=== PATIENT | male | born 1965 | race Caucasian/White ===

== ENCOUNTER 2024-04-19 16:04 | Emergency (ER) | payer MEDICAID, SELFPAY ==
[2024-04-19 16:10] VITALS: BP 139/86; PULSE 62; TEMP 36.7; O2SAT 97; BMI 19.4
--- NOTE | 2024-04-19 16:19 | XR_ITS ---
The [address] [address] Patient Name: KRISTEN LAU MRN: [id number] date: 1965 Sex: M Assigned Patient Location: ER Current Patient Location: ED.MAIN Accession/Order Number: [id number] Exam Date: 04/19/2024 16:30 Report Date: 04/19/2024 17:17 At the request of: ALONSO HARTLEY Procedure: XR shoulder RT min 2V EXAM: XR shoulder RT min 2V HISTORY: right shoulder pain/ mass? COMPARISON: None. TECHNIQUE: 3 views of the right shoulder. FINDINGS: Bones: No acute fracture or dislocation. There is significant cortical erosion of medial proximal humeral shaft and neck mottling of proximal diaphysis, suspicious for neoplasm. CT of the shoulder with contrast is recommended for better evaluation. XR/XR shoulder RT min 2V IMPRESSION: significant cortical erosion of medial proximal humeral shaft and neck mottling of proximal diaphysis, suspicious for neoplasm. CT of the shoulder with contrast is recommended for better evaluation. Electronically authenticated by: IRON TEMPLETON Date: 04/19/2024 17:17
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
[2024-04-19 17:54] LABS: Basophils Absolute Auto 0.1 10^3/uL (0.0-0.1); Basophils Percent Auto 0.7 % (0.2-2.0); Eosinophils Absolute Auto 0.7 10^3/uL (0.0-0.7); Eosinophils Percent Auto 5.5 % (0.9-7.0); Hematocrit 43.4 % (42.0-54.0); Hemoglobin 14.1 g/dL (14.0-18.0); Immature Granulocytes Abs Auto 0.03 10^3/uL (0.00-0.03); Immature Granulocytes Pct Auto 0.2 % (0.0-0.5); Lymphocytes Absolute Auto 1.6 10^3/uL (1.2-3.8); Lymphocytes Percent Auto 12.6 % (20.5-60.0); Mean Corpuscular HGB Conc 32.5 g/dL (29.9-35.2); Mean Corpuscular Hemoglobin 28.7 pg (25.9-34.0); Mean Corpuscular Volume 88.2 fL (80.0-94.0); Mean Platelet Volume 11.3 fL (9.5-13.5); Monocytes Absolute Auto 1.2 10^3/uL (0.3-0.8); Monocytes Percent Auto 9.3 % (1.7-12.0); Neutrophils Absolute Auto 9.2 10^3/uL (1.4-6.5); Neutrophils Percent Auto 71.7 % (43.0-75.0); Platelet Count 356 10^3/uL (150-450); Red Blood Count 4.92 10^6/uL (4.70-6.10); Red Cell Distribution Width 15.2 % (11.0-15.0); White Blood Count 12.8 10^3/uL (4.0-11.0)
[2024-04-19 18:08] LABS: Alanine Aminotransferase 22 U/L (16-63); Albumin Globulin Ratio 0.6; Albumin Level 3.1 g/dL (3.4-5.0); Alkaline Phosphatase 120 U/L (46-116); Aspartate Amino Transferase 25 U/L (15-37); BUN Creatinine Ratio 22.1; Bilirubin Total 0.3 mg/dL (0.2-1.0); Calcium 10.4 mg/dL (8.5-10.1); Carbon Dioxide 29.3 mmol/L (21.0-32.0); Chloride 101 mmol/L (98-107); Estimated GFR (African America >60 (>=60); Estimated GFR (Non-African Ame >60 (>=60); Globulin 4.8 g/dL; Glucose 87 mg/dL (74-106); Lactate Dehydrogenase 116 U/L (85-227); Potassium 4.3 mmol/L (3.5-5.1); Sodium 137 mmol/L (136-145); Total Protein 7.9 g/dL (6.4-8.2); Uric Acid 3.3 mg/dL (3.5-7.2)
[2024-04-21 14:10] LABS: Free Lambda Lt Chains,S 40.2 mg/L (5.7-26.3); Kappa/Lambda Ratio,S 1.47 (0.26-1.65)
[2024-04-21 15:10] LABS: Immunoglobulin A, Qn, Serum 468 mg/dL (90-386); Immunoglobulin G, Qn, Serum 1873 mg/dL (603-1613); Immunoglobulin M, Qn, Serum 81 mg/dL (20-172)
== END 2024-04-19 18:01 | disposition home or self-care (01) ==
PROVIDERS: Internal Medicine Hematology & Oncology; Emergency Provider Emergency Medicine; Family Provider Family Medicine
DX: M25.511 Pain in right shoulder (principal); G89.29 Other chronic pain; R22.1 Localized swelling, mass and lump, neck
CPT/HCPCS: 36415; 73030; 80053; 83521; 83615; 84550; 85025; 99284

== ENCOUNTER 2024-04-25 07:22 | Outpatient (RCR) | payer MEDICAID, SELFPAY ==
[2024-04-25 14:14] LABS: Basophils Absolute Auto 0.1 10^3/uL (0.0-0.1); Basophils Percent Auto 0.6 % (0.2-2.0); Eosinophils Absolute Auto 0.4 10^3/uL (0.0-0.7); Eosinophils Percent Auto 2.2 % (0.9-7.0); Hematocrit 42.5 % (42.0-54.0); Hemoglobin 13.7 g/dL (14.0-18.0); Immature Granulocytes Abs Auto 0.05 10^3/uL (0.00-0.03); Immature Granulocytes Pct Auto 0.3 % (0.0-0.5); Lymphocytes Absolute Auto 1.1 10^3/uL (1.2-3.8); Lymphocytes Percent Auto 6.8 % (20.5-60.0); Mean Corpuscular HGB Conc 32.2 g/dL (29.9-35.2); Mean Corpuscular Hemoglobin 28.5 pg (25.9-34.0); Mean Corpuscular Volume 88.5 fL (80.0-94.0); Mean Platelet Volume 10.8 fL (9.5-13.5); Monocytes Absolute Auto 1.3 10^3/uL (0.3-0.8); Monocytes Percent Auto 8.3 % (1.7-12.0); Neutrophils Percent Auto 81.8 % (43.0-75.0); Platelet Count 414 10^3/uL (150-450); Red Cell Distribution Width 14.8 % (11.0-15.0); White Blood Count 15.9 10^3/uL (4.0-11.0)
[2024-04-25 14:51] LABS: Alanine Aminotransferase 21 U/L (16-63); Albumin Globulin Ratio 0.6; Albumin Level 2.7 g/dL (3.4-5.0); Alkaline Phosphatase 126 U/L (46-116); Anion Gap 13.5; Aspartate Amino Transferase 24 U/L (15-37); BUN Creatinine Ratio 21.8; Bilirubin Total 0.3 mg/dL (0.2-1.0); Calcium 10.5 mg/dL (8.5-10.1); Carbon Dioxide 27.5 mmol/L (21.0-32.0); Chloride 99 mmol/L (98-107); Estimated GFR (African America >60 (>=60); Estimated GFR (Non-African Ame >60 (>=60); Globulin 4.9 g/dL; Glucose 86 mg/dL (74-106); Sodium 136 mmol/L (136-145); Total Protein 7.6 g/dL (6.4-8.2)
[2024-04-25 15:04] LABS: Prostate Specific Antigen Scrn 1.74 ng/mL (<=4.00)
[2024-04-26 15:09] LABS: Alpha-1-Globulin 0.2 g/dL (0.0-0.4); Gamma Globulin 1.7 g/dL (0.4-1.8); Immunoglobulin A, Qn, Serum 474 mg/dL (90-386); Immunoglobulin G, Qn, Serum 1830 mg/dL (603-1613); Immunoglobulin M, Qn, Serum 78 mg/dL (20-172)
== END 2024-04-29 23:59 | disposition home or self-care (01) ==
LOC: HEMC 07:22
PROVIDERS: Family Provider Family Medicine; Visit Provider Internal Medicine Hematology & Oncology
DX: M89.8X8 Other specified disorders of bone, other site (principal); R93.89 Abnormal findings on diagnostic imaging of other specified body structures; C79.51 Secondary malignant neoplasm of bone; E83.52 Hypercalcemia; Z72.0 Tobacco use; Z12.5 Encounter for screening for malignant neoplasm of prostate; F17.210 Nicotine dependence, cigarettes, uncomplicated; R22.1 Localized swelling, mass and lump, neck
CPT/HCPCS: 36415; 80053; 82784; 84155; 84165; 85025; 86334; G0103; G0463

== ENCOUNTER 2024-05-05 09:07 | Outpatient (OUT) | payer MEDICAID, SELFPAY ==
--- NOTE | 2024-05-05 09:24 | CT_ITS ---
The [address] [address] Patient Name: KRISTEN LAU MRN: [id number] date: 1965 Sex: M Assigned Patient Location: CT Current Patient Location: CT Accession/Order Number: [id number] Exam Date: 05/05/2024 09:30 Report Date: 05/06/2024 06:35 At the request of: RENETTA JONES Procedure: CT soft tissue neck w con EXAMINATION: CT soft tissue neck w con HISTORY: Swelling Mass Of Neck, Malignant Neoplasm Of Prostate COMPARISON: No relevant comparison available. TECHNIQUE: Axial, Coronal, and Sagittal CT images created with IV contrast. Dose reduction techniques were achieved by using automated exposure control and/or adjustment of mA and/or kV according to patient size and/or use of iterative reconstruction technique. FINDINGS: NASOPHARYNX: No asymmetry of the fossae of Rosenmuller and torus tubarius. ORAL CAVITY: No visible mass. OROPHARYNX: No asymmetry of the facial and lingual tonsils. HYPOPHARYNX: No mass or other visible lesion. LARYNX: No mass or asymmetry of the vocal cords. SINUSES: No significant fluid or mucosal thickening. NECK GLANDS: No visible abnormality of the parotid, submandibular, and thyroid glands. LYMPH NODES: Enlarged necrotic left supraclavicular lymph node/mass, 6.3 x 5.1 x 4.1 cm. Necrotic appearing right supraclavicular lymph node, 1.7 cm. Enlarged abnormal appearing lymph nodes within the visible upper mediastinum. VASCULATURE: No suspicious abnormality. BONES: Levocurvature of cervical spine and degenerative changes. OTHER: No additional imaging findings. CT/CT soft tissue neck w con IMPRESSION: 1. Marked left supraclavicular and mediastinal lymphadenopathy, highly suggestive of neoplasm. Abnormal appearing, but smaller right supraclavicular lymph node. Electronically authenticated by: PAIGE DYER Date: 05/06/2024 06:35
--- NOTE | 2024-05-05 09:24 | CT_ITS ---
[address] [address] Patient Name: KRISTEN LAU MRN: [id number] date: 1965 Sex: M Assigned Patient Location: CT Current Patient Location: Accession/Order Number: [id number] Exam Date: 05/05/2024 09:30 Report Date: 05/06/2024 06:30 At the request of: RENETTA JONES Procedure: CT chest w con EXAMINATION: CT chest w con HISTORY: Swelling Mass Of Neck, Malignant Neoplasm Of Prostate ; lump on left side of neck, lightheaded, smoker COMPARISON: No relevant comparison available. TECHNIQUE: Multi-planar CT images were obtained without and/or with IV contrast as indicated by examination type. Axial, Coronal, and Sagittal images. Dose reduction techniques were achieved by using automated exposure control and/or adjustment of mA and/or kV according to patient size and/or use of iterative reconstruction technique. FINDINGS: LUNGS: Marked emphysematous changes. Moderate infiltrates versus atelectasis within right middle lobe. 4 mm nodule within right middle lobe. Apical scarring bilaterally. PLEURA: No mass, effusion, or pneumothorax. VASCULATURE: No abnormality. YASMINE: Enlarged necrotic appearing lymph nodes bilaterally. MEDIASTINUM: Numerous enlarged necrotic appearing lymph nodes filling the mediastinum and left supraclavicular region (5.8 cm left supraclavicular lymph node/mass). CARDIAC: No enlargement or pericardial thickening.. Coronary artery calcifications: AORTA: No aneurysm or dissection. CHEST WALL: No mass or axillary adenopathy. BONES: Destructive process/lesion suspected within right humeral neck extending into soft tissue inferior to the glenohumeral joint. LIMITED ABDOMEN: No suspicious findings Limited images of the upper abdomen. OTHER: Negative. CT/CT chest w con IMPRESSION: 1. Marked left supraclavicular, mediastinal, bilateral hilar lymphadenopathy of uncertain etiology but highly suggestive of neoplasm. 2. Suspect destructive bone lesion within proximal right humerus extending into the surrounding soft tissues; minimally included on today's study. CT or MRI of right shoulder is recommended. 3. Moderate infiltrates versus atelectasis within right middle lobe along with a 4 mm nodule within the right middle lobe. A nodule is nonspecific but not overtly suspicious. Marked emphysematous changes bilaterally. Electronically authenticated by: PAIGE DYER Date: 05/06/2024 06:30
== END 2024-05-05 09:08 | disposition home or self-care (01) ==
PROVIDERS: Family Provider Family Medicine; PCP Nurse Practitioner Family; Visit Provider Internal Medicine Hematology & Oncology
DX: R93.89 Abnormal findings on diagnostic imaging of other specified body structures (principal); M89.8X8 Other specified disorders of bone, other site; C79.51 Secondary malignant neoplasm of bone; E83.52 Hypercalcemia; R22.1 Localized swelling, mass and lump, neck; Z72.0 Tobacco use; Z12.5 Encounter for screening for malignant neoplasm of prostate
CPT/HCPCS: 70491; 71260; Q9967

== ENCOUNTER 2024-05-11 07:44 | Outpatient (RCR) | payer MEDICAID, SELFPAY ==
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
--- NOTE | 2024-05-08 13:30 | CT_ITS ---
The [address] [address] Patient Name: KRISTEN LAU MRN: [id number] date: 1965 Sex: M Assigned Patient Location: CT Current Patient Location: [facility] Accession/Order Number: [id number] Exam Date: 05/08/2024 13:15 Report Date: 05/08/2024 14:41 At the request of: RENETTA JONES Procedure: CT shoulder RT wo/w con IMAGES REVIEWED: CT shoulder RT wo/w con COMPARISON: 04/19/2024, 05/05/2024. CLINICAL INDICATION: Malignant Neoplasm Of Bone, Malignant Neoplasm Of Prostate TECHNIQUE: Multiplanar CT images of the right shoulder without contrast. Dose reduction techniques were achieved by using automated exposure control and/or adjustment of mA and/or kV according to patient size and/or use of iterative reconstruction technique. FINDINGS: Large lytic destructive malignant bony neoplasm involving the right humeral head and extending into the right humeral neck again seen spanning up to 6.5 cm. Compared to prior x-ray from 04/19/2024 there appears to have been interval worsened bony destructive change suggesting worsening prostate cancer metastasis given provided clinical history. On the prior x-ray there was right medial humeral neck cortical loss/pathologic fracture. Now cortical loss extends into the humeral head. There is an associated large soft tissue mass extending into the right axillary region which measures approximately 6.5 x 7 x 6.5 cm. No additional suspicious osseous lesions seen. Osteopenia. No definite pathologically enlarged right shoulder-axillary lymph nodes seen. Preserved rotator cuff muscle bulk. Severe emphysematous changes in the right lung with a prominent bleb/bulla in the right lung apex. There appears to be partially visualized mediastinal and right hilar lymphadenopathy. CT/CT shoulder RT wo/w con IMPRESSION: Large lytic destructive malignant bony neoplasm involving the right humeral head and extending into the right humeral neck again seen spanning up to 6.5 cm. Differential includes metastasis versus multiple myeloma. Compared to prior x-ray from 04/19/2024, interval worsened bony destructive change/cortical loss suggesting worsening prostate cancer metastasis given provided clinical history (prostate cancer metastases are typically sclerotic, consider biopsy as appropriate). Associated large 6.5 x 7 x 6.5 cm soft tissue mass extending into the right axillary region. Please refer to CT chest from 05/05/2024. There appears to be partially visualized mediastinal and right hilar lymphadenopathy. Severe emphysematous changes in the right lung with a prominent bleb/bulla in the right lung apex. Electronically authenticated by: ROMA MARTIN Date: 05/08/2024 14:41
== END 2024-05-29 23:59 | disposition home or self-care (01) ==
LOC: HEMC 07:44
PROVIDERS: Family Provider Family Medicine; PCP Nurse Practitioner Family; Visit Provider Internal Medicine Hematology & Oncology
DX: R93.89 Abnormal findings on diagnostic imaging of other specified body structures (principal); M89.8X8 Other specified disorders of bone, other site; C79.51 Secondary malignant neoplasm of bone; E83.52 Hypercalcemia; Z72.0 Tobacco use
CPT/HCPCS: 73202; Q9967

== ENCOUNTER 2024-06-01 12:51 | Emergency (ER) | payer MEDICAID, SELFPAY ==
[2024-06-01] VITALS (52 sets, daily range): BP systolic 94–130; BP diastolic 60–74; PULSE 67–91; TEMP 36.6; O2SAT 34–100; BMI 12.9
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
--- NOTE | 2024-06-01 13:09 | ECG_ITS ---
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
--- NOTE | 2024-06-01 13:11 | ED.GENADUL1 ---
HPI HPI - General Adult General Chief complaint: Fall Stated complaint: FALL Time Seen by Provider: 06/01/24 12:56 Source: patient Mode of arrival: Wheelchair Limitations: no limitations History of Present Illness HPI narrative: 58-year-old male presents to the emergency department for generalized weakness. He has recently been diagnosed with lung cancer but has not started any treatment thus far. Today he was feeling weak and he fell and he hurt his right shoulder. He has been having some ongoing issues with that right shoulder. No other injury was sustained, he did not hit his head. He has no chest pain or shortness of breath or abdominal pain. He was sent in by his oncologist. Related Data Previous Rx's ?Medication ?Instructions ?Recorded hydrocodone 7.5 mg-acetaminophen 1 tab PO Q4H PRN pain #10 tabs 04/19/24 325 mg tablet Allergies Allergy/AdvReac Type Severity Reaction Status Date / Time No Known Drug Allergies Allergy Verified 06/01/24 13:06 Opioid HPI Opioid Management Most Recent Opioid Data: No Data to Display Review of Systems ROS Narrative A ten point review of systems is negative except as noted above. Positive for significant weight loss over the past few months of perhaps 40 pounds. PFSH PFSH Social History Little interest or pleasure in doing things: not at all Feeling down, depressed, or hopeless: not at all Exam Narrative Exam Narrative: Nurses note and vital signs reviewed and patient is not hypoxic. General: The patient appears in no apparent distress. Patient appears emaciated. Skin: Warm, dry, no pallor noted. There is no rash noted. Head: Normocephalic, atraumatic Eye: Normal conjunctiva, no drainage Ears, Nose, Mouth, and Throat: oral mucosa is moist. Nares patent. Cardiovascular: Regular Rate and Rhythm Respiratory: Patient is in no distress, no accessory muscle use, lungs are clear to auscultation, no wheezing, rales or rhonchi Back: non-tender GI: Soft and nontender Musculoskeletal: He is quite thin. He has no obvious deformity of the right shoulder. Range of motion is limited because of discomfort and the patient states that has been an ongoing problem for weeks or months. Neurological: A&O, normal speech Psychiatric: Cooperative Constitutional Vital Signs, click to edit/add: Last Vital Signs Temp 97.8 F 06/01/24 13:03 Pulse 71 06/01/24 16:10 Resp 15 06/01/24 16:10 BP 106/71 06/01/24 13:03 Pulse Ox 98 06/01/24 16:10 O2 Del Method Room Air 06/01/24 13:03 Course Vital Signs Vital signs: Vital Signs Temperature 97.8 F 06/01/24 13:03 Pulse Rate 85 06/01/24 13:03 Respiratory Rate 16 06/01/24 13:03 Blood Pressure 106/71 06/01/24 13:03 Pulse Oximetry 98 06/01/24 13:03 Oxygen Delivery Method Room Air 06/01/24 13:03 Temperature 97.8 F 06/01/24 13:03 Pulse Rate 71 06/01/24 16:10 Respiratory Rate 15 06/01/24 16:10 Blood Pressure 106/71 06/01/24 13:03 Pulse Oximetry 98 06/01/24 16:10 Oxygen Delivery Method Room Air 06/01/24 13:03 Medical Decision Making MDM Narrative Medical decision making narrative: The patient has hypercalcemia and has a large amount of erosion of the proximal humerus. In conjunction with his oncologist the patient was given IV pamidronate as well as IV fluids and the patient will be transferred to [facility]. I have spoken to the hospitalist there who has accepted the patient. Treatment diagnosis and disposition were discussed with the patient and his family. Differential Diagnosis Differential Diagnosis: Hypercalcemia, lung cancer, metastases Lab Data Lab results reviewed: Yes I reviewed the patient's lab results Labs: Lab Results 06/01/24 Range/Units 13:26 WBC 22.3 H (4.0-11.0) 10^3/uL RBC 4.52 L (4.70-6.10) 10^6/uL Hgb 13.2 L (14.0-18.0) g/dL Hct 40.7 L (42.0-54.0) % MCV 90.0 (80.0-94.0) fL MCH 29.2 (25.9-34.0) pg MCHC 32.4 (29.9-35.2) g/dL RDW 13.9 (11.0-15.0) % Plt Count 291 (150-450) 10^3/uL MPV 11.2 (9.5-13.5) fL Seg Neuts % (Manual) 94.0 H (43.0-75.0) Lymphocytes % (Manual) 2.0 L (20.5-60.0) % Monocytes % (Manual) 4.0 (1.7-12.0) % Eosinophils % (Manual) 0.0 L (0.9-7.0) % Basophils % (Manual) 0.0 L (0.2-2.0) % Neutrophils # (Manual) 20.96 H (1.4-6.5) 10^3/uL Lymphocytes # (Manual) 0.44 L (1.20-3.80) 10^3/uL Monocytes # (Manual) 0.89 H (0.30-0.80) 10^3/uL Eosinophils # (Manual) 0.00 (0.00-0.70) 10^3/uL Basophils # (Manual) 0.00 (0.00-0.10) 10^3/uL Sodium 128 L (136-145) mmol/L Potassium 3.5 (3.5-5.1) mmol/L Chloride 93 L (98-107) mmol/L Carbon Dioxide 30.4 (21.0-32.0) mmol/L Anion Gap 8.1 BUN 27.0 H (7.0-18.0) mg/dL Creatinine 1.29 (0.70-1.30) mg/dL Est GFR ( Amer) >60 (>=60 mL/min/1.73m^2) Est GFR (Non-Af Amer) 58 L (>=60 mL/min/1.73m^2) BUN/Creatinine Ratio 20.9 Glucose 98 (74-106) mg/dL Calcium 12.4 H (8.5-10.1) mg/dL Magnesium 1.9 (1.8-2.4) mg/dL Total Bilirubin 0.6 (0.2-1.0) mg/dL Direct Bilirubin 0.2 (0.0-0.2) mg/dL AST 81 H (15-37) U/L ALT 67 H (16-63) U/L Alkaline Phosphatase 212 H (46-116) U/L Total Protein 6.8 (6.4-8.2) g/dL Albumin 1.9 L (3.4-5.0) g/dL Globulin 4.9 g/dL Albumin/Globulin Ratio 0.4 Imaging Data Chest x-ray: Radiologist's impression: ITS Impressions Chest X-Ray 06/01/24 13:40 IMPRESSION: The right paratracheal fullness likely represents lymphadenopathy seen on prior CT exam No new focal parenchymal infiltrate Electronically authenticated by: MARCELA FAM Date: 06/01/2024 14:36 Shoulder X-Ray 06/01/24 13:40 IMPRESSION: Lytic destructive soft tissue mass of the proximal humerus, significantly progressed from the prior exam No definite acute fracture Electronically authenticated by: MARCELA FAM Date: 06/01/2024 14:33 ECG Data Attestation: I personally reviewed and interpreted this ECG as follows: (EKG on my interpretation shows sinus rhythm with PVCs.) Critical Care Time Critical Care Time Critical Care Time: Yes Total Critical Care Time: 35 Attestation: Due to the high probability of sudden and clinically significant deterioration in the patient's condition he/she required the highest level of my preparedness to intervene urgently I provided critical care time including documentation time, medication orders and management, reevaluation, vital sign assessment, ordering and reviewing of lab tests, ordering and reviewing of x-ray studies, and admission orders. Aggregate critical care time is 35 minutes including only time during which I was engaged in work directly related to his/her care and did not include time spent treating other patients simultaneously. Discharge Plan Discharge Chief Complaint: Fall Clinical Impression: Hypercalcemia, Generalized weakness Patient Disposition: [facility] Time of Disposition Decision: 17:14 Discharge Location: [facility] Condition: Fair Mode of Transportation: EMS
[2024-06-01 13:36] LABS: Hematocrit 40.7 % (42.0-54.0); Hemoglobin 13.2 g/dL (14.0-18.0); Mean Corpuscular HGB Conc 32.4 g/dL (29.9-35.2); Mean Corpuscular Hemoglobin 29.2 pg (25.9-34.0); Mean Platelet Volume 11.2 fL (9.5-13.5); Platelet Count 291 10^3/uL (150-450); Red Blood Count 4.52 10^6/uL (4.70-6.10); Red Cell Distribution Width 13.9 % (11.0-15.0); White Blood Count 22.3 10^3/uL (4.0-11.0)
--- NOTE | 2024-06-01 13:40 | XR_ITS ---
The [address] [address] Patient Name: KRISTEN LAU MRN: [id number] date: 1965 Sex: M Assigned Patient Location: ER Current Patient Location: ER Accession/Order Number: [id number] Exam Date: 06/01/2024 13:31 Report Date: 06/01/2024 14:36 At the request of: RUFINA BRYANT Procedure: XR chest 1V EXAMINATION: XR chest 1V HISTORY: Weak, known lung cancer COMPARISON: CT chest 05/05/2024 TECHNIQUE: AP portable erect FINDINGS: LUNGS: Stable hyperinflation. No focal parenchymal infiltrates VASCULATURE: No increased pulmonary vasculature. PLEURA: No pneumothorax, effusion, or pleural thickening. CARDIAC: No cardiomegaly or cardiac silhouette abnormality. MEDIASTINUM: Prominent right paratracheal stripe BONES: No fracture or visible bone lesion. OTHER: Negative. XR/XR chest 1V IMPRESSION: The right paratracheal fullness likely represents lymphadenopathy seen on prior CT exam No new focal parenchymal infiltrate Electronically authenticated by: MARCELA FAM Date: 06/01/2024 14:36
--- NOTE | 2024-06-01 13:40 | XR_ITS ---
The [address] [address] Patient Name: KRISTEN LAU MRN: [id number] date: 1965 Sex: M Assigned Patient Location: ER Current Patient Location: ER Accession/Order Number: [id number] Exam Date: 06/01/2024 13:31 Report Date: 06/01/2024 14:33 At the request of: RUFINA BRYANT Procedure: XR shoulder RT min 2V PROCEDURE: XR shoulder RT min 2V COMPARISON: 04/19/2024 HISTORY: fall FINDINGS: BONES:No acute fracture or dislocation. There is been marked progression of destructive lytic change of the proximal humeral head neck and diaphysis with associated calcified soft tissue mass. SOFT TISSUES:Negative. No visible soft tissue swelling. EFFUSION:None visible. OTHER: Negative. XR/XR shoulder RT min 2V IMPRESSION: Lytic destructive soft tissue mass of the proximal humerus, significantly progressed from the prior exam No definite acute fracture Electronically authenticated by: MARCELA FAM Date: 06/01/2024 14:33
[2024-06-01 13:49] LABS: Anion Gap 8.1; BUN Creatinine Ratio 20.9; Calcium 12.4 mg/dL (8.5-10.1); Carbon Dioxide 30.4 mmol/L (21.0-32.0); Chloride 93 mmol/L (98-107); Estimated GFR (African America >60 (>=60 mL/min/1.73m^2); Estimated GFR (Non-African Ame 58 (>=60 mL/min/1.73m^2); Glucose 98 mg/dL (74-106); Potassium 3.5 mmol/L (3.5-5.1); Sodium 128 mmol/L (136-145)
[2024-06-01 14:09] LABS: Alanine Aminotransferase 67 U/L (16-63); Albumin Globulin Ratio 0.4; Albumin Level 1.9 g/dL (3.4-5.0); Alkaline Phosphatase 212 U/L (46-116); Aspartate Amino Transferase 81 U/L (15-37); Bilirubin Direct 0.2 mg/dL (0.0-0.2); Bilirubin Total 0.6 mg/dL (0.2-1.0); Globulin 4.9 g/dL; Magnesium 1.9 mg/dL (1.8-2.4); Total Protein 6.8 g/dL (6.4-8.2)
[2024-06-01 14:24] LABS: Lymphocytes Absolute Manual 0.44 10^3/uL (1.20-3.80); Segmented Neut Absolute Manual 20.96 10^3/uL (1.4-6.5)
[2024-06-01 14:25] LABS: Monocytes Absolute Manual 0.89 10^3/uL (0.30-0.80)
[2024-06-01] MEDS: 0.9 % SODIUM CHLORIDE 1,000 ML 1000 ML IV (14:58)
[2024-06-01] MEDS: PAMIDRONATE DISODIUM IV (14:59)
[2024-06-01] MEDS: SODIUM CHLORIDE 0.9% IV (14:59)
--- NOTE | 2024-06-01 17:31 | ECG_ITS ---
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1965 Requested By: [id number] Order Number: [id number] Reading MD: ROGER MANUEL Measurements Intervals [place] Rate: 168 P: -07237 [place]: -38046 QRS: 94 QRSD: 96 T: 122 QT: 314 QTc: 405 Interpretive Statements 1420 Undetermined rhythm (Possible supraventricular tachycardia) 2440 Incomplete right bundle branch block [address] depression [address] & Twave abnormality 7102 Moderate right axis deviation 9150 abnormal ECG Compared to ECG 06/01/2024 17:28:46 Right-axis deviation now present Sinus rhythm no longer present Indeterminate axis no longer present ST (T wave) deviation still present Electronically Signed On 06-02-2024 6:49:27 EDT by ROGER MANUEL
--- NOTE | 2024-06-01 19:24 | PC.NURSE ---
Upon entering room for change of shift nurse report, patient had removed his IV and wanted to leave AMA. He and his were very upset about the amount of time the patient has spent in the ED already, and they had just been updated that they will be here another two hours before transport will be here. The is very rude and is yelling, she is telling the day shift RN Shayy that she has not been updating them about anything, although the RN states she has been updating them each time there has been any update available. The is accusing the ER staff of taking too long and holding them in the room all day and states this has never happened to them before. Shayy RN explains that the testing that was done takes time to get results back for, then the entire transfer process takes time. She apologized several times and maintained an even tone with the patient and his during the conversation, but the continued to yell and be rude. Shayy offered AMA papers to the patient, he stated that he wanted to sign them and come back another day to try again. Shayy explained that the entire process would have to start over if that happened, and it would likely take several hours again, but he was welcome to do that. The continued to yell about what a waste of time this day was, how she lost a whole day of work and pay, and she stormed out of the room saying she would see him in the car. Once she was out of the room, the patient stated he wanted to stay and be transferred. Shayy explained that his IV would need to be restarted, he would need to be put back on the rn operating room and reiterated the fact that transport would not arrive for about 2 hours, and the patient again states that he wants to stay and be transferred. He sent his a text message to inform her that he is going to be staying.
--- NOTE | 2024-06-01 19:51 | PC.NURSE ---
After patient and were contemplating leaving AMA due to what they felt was a long wait time to be transferred to [facility], they agreed to stay. Pt was re attched to patient monitor and IV was placed.
--- NOTE | 2024-06-01 22:01 | PC.NURSE ---
Attempted to call report to [facility] nurse Autumn twice and received no answer.
--- NOTE | 2024-06-01 22:22 | PC.NURSE ---
Report called to Autumn COSBY at [facility].
== END 2024-06-01 21:30 | disposition short-term general hospital (02) ==
PROVIDERS: Emergency Provider Emergency Medicine; Family Provider Family Medicine; PCP Nurse Practitioner Family
DX: E83.52 Hypercalcemia (principal); R53.1 Weakness; C34.90 Malignant neoplasm of unspecified part of unspecified bronchus or lung
CPT/HCPCS: 36415; 71045; 73030; 80048; 80076; 81001; 83735; 85007; 85027; 93005; 96365; 96366; 99285; J2430

== ENCOUNTER 2024-06-27 07:42 | Outpatient (RCR) | payer MEDICAID, SELFPAY ==
[2024-05-30 10:04] LABS: Hematocrit 42.8 % (42.0-54.0); Hemoglobin 13.9 g/dL (14.0-18.0); Mean Corpuscular HGB Conc 32.5 g/dL (29.9-35.2); Mean Corpuscular Hemoglobin 29.1 pg (25.9-34.0); Mean Corpuscular Volume 89.7 fL (80.0-94.0); Mean Platelet Volume 11.4 fL (9.5-13.5); Platelet Count 300 10^3/uL (150-450); Red Blood Count 4.77 10^6/uL (4.70-6.10); White Blood Count 25.5 10^3/uL (4.0-11.0)
[2024-05-30 10:24] LABS: Band Neutrophils Absolute 0.8 10^3/uL (0.0-0.3); Eosinophils Absolute Manual 0.51 10^3/uL (0.00-0.70); Lymphocytes Absolute Manual 0.51 10^3/uL (1.20-3.80); Monocytes Absolute Manual 1.02 10^3/uL (0.30-0.80); Segmented Neut Absolute Manual 22.69 10^3/uL (1.4-6.5)
[2024-05-30 10:29] LABS: Alanine Aminotransferase 65 U/L (16-63); Albumin Globulin Ratio 0.4; Albumin Level 2.2 g/dL (3.4-5.0); Alkaline Phosphatase 204 U/L (46-116); Anion Gap 8.4; Aspartate Amino Transferase 72 U/L (15-37); BUN Creatinine Ratio 24.8; Bilirubin Total 0.6 mg/dL (0.2-1.0); Carbon Dioxide 30.8 mmol/L (21.0-32.0); Chloride 93 mmol/L (98-107); Estimated GFR (African America >60 (>=60); Estimated GFR (Non-African Ame 56 (>=60); Globulin 5.4 g/dL; Glucose 90 mg/dL (74-106); Magnesium 2.2 mg/dL (1.8-2.4); Potassium 4.2 mmol/L (3.5-5.1); Sodium 128 mmol/L (136-145); Thyroid Stimulating Hormone 1.303 uIU/mL (0.358-3.740); Total Protein 7.6 g/dL (6.4-8.2)
[2024-05-30 10:34] LABS: Calcium 13.8 mg/dL (8.5-10.1)
[2024-05-31 05:07] LABS: HBsAg Screen Negative (Negative); Hep B Core Ab, Tot Negative (Negative); Hepatitis B Surf Ab Quant <3.5 mIU/mL (Immunity>10)
[2024-06-27 10:29] VITALS: BP 99/68; PULSE 77; TEMP 36.9
[2024-06-27 11:02] LABS: Hemoglobin 11.3 g/dL (14.0-18.0); Mean Corpuscular HGB Conc 32.3 g/dL (29.9-35.2); Mean Corpuscular Hemoglobin 30.3 pg (25.9-34.0); Mean Corpuscular Volume 93.8 fL (80.0-94.0); Mean Platelet Volume 10.1 fL (9.5-13.5); Platelet Count 505 10^3/uL (150-450); Red Blood Count 3.73 10^6/uL (4.70-6.10); Red Cell Distribution Width 16.2 % (11.0-15.0); White Blood Count 15.4 10^3/uL (4.0-11.0)
[2024-06-27 11:19] LABS: Alanine Aminotransferase 28 U/L (16-63); Albumin Globulin Ratio 0.3; Albumin Level 1.6 g/dL (3.4-5.0); Alkaline Phosphatase 140 U/L (46-116); Anion Gap 14.4; Aspartate Amino Transferase 35 U/L (15-37); BUN Creatinine Ratio 19.5; Bilirubin Total 0.4 mg/dL (0.2-1.0); Calcium 8.9 mg/dL (8.5-10.1); Carbon Dioxide 26.3 mmol/L (21.0-32.0); Chloride 101 mmol/L (98-107); Estimated GFR (African America >60 (>=60 mL/min/1.73m^2); Estimated GFR (Non-African Ame >60 (>=60 mL/min/1.73m^2); Globulin 4.9 g/dL; Glucose 99 mg/dL (74-106); Potassium 4.7 mmol/L (3.5-5.1); Sodium 137 mmol/L (136-145); Total Protein 6.5 g/dL (6.4-8.2)
[2024-06-27 11:27] LABS: Anisocytosis 1+; Band Neutrophils Absolute 0.3 10^3/uL (0.0-0.3); Basophils Abs Manual 0.15 10^3/uL (0.00-0.10); Eosinophils Absolute Manual 0.15 10^3/uL (0.00-0.70); Monocytes Absolute Manual 0.77 10^3/uL (0.30-0.80)
[2024-06-27] MEDS: 0.9 % SODIUM CHLORIDE 250 ML 10 ML IV (11:45)
[2024-06-27] MEDS: PEMBROLIZUMAB 200 MG in 0.9 % SODIUM CHLORIDE 100 ML 216 MG IV (12:40)
[2024-06-27 13:30] LABS: INR 1.03; Partial Thromboplastin Time 29.8 sec (22.3-36.2); Prothrombin Time 10.9 sec (9.0-11.6)
== END 2024-06-29 23:59 | disposition home or self-care (01) ==
LOC: HEMC 07:42
PROVIDERS: Family Provider Family Medicine; PCP Nurse Practitioner Family; Visit Provider Internal Medicine Hematology & Oncology
DX: Z51.11 Encounter for antineoplastic chemotherapy (principal); C34.91 Malignant neoplasm of unspecified part of right bronchus or lung; C79.51 Secondary malignant neoplasm of bone; M89.8X8 Other specified disorders of bone, other site; E83.52 Hypercalcemia; D64.9 Anemia, unspecified; I82.621 Acute embolism and thrombosis of deep veins of right upper extremity; I82.4Z2 Acute embolism and thrombosis of unspecified deep veins of left distal lower extremity
CPT/HCPCS: 36415; 80053; 83735; 84443; 85007; 85027; 85610; 85730; 86317; 86704; 87340; 93970; 93971; 96413; G0463; J9271

== ENCOUNTER 2024-06-27 13:35 | Outpatient (OUT) | payer MEDICAID, SELFPAY ==
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
--- NOTE | 2024-06-27 13:40 | US_ITS ---
The [address] [address] Patient Name: KRISTEN LAU MRN: [id number] date: 1965 Sex: M Assigned Patient Location: US Current Patient Location: US Accession/Order Number: [id number] Exam Date: 06/27/2024 13:40 Report Date: 06/27/2024 14:52 At the request of: RENETTA JONES Procedure: US venous doppler LE BI EXAMINATION: US venous doppler LE BI HISTORY: Localized Swelling Of Bilateral Lower Limb COMPARISON: No relevant comparison available. FINDINGS: REGION: Bilateral lower extremities. THROMBI: Nonocclusive thrombus within left popliteal vein with occlusive thrombus within the posterior tibial vein, peroneal, and gastrocnemius veins. COMPRESSIBILITY: Noncompressible segments. FLOW: Normal waveform and antegrade flow between 5 and 20 cm/s within right lower extremity and throughout remainder of left lower extremity.. OTHER: None. US/US venous doppler LE BI IMPRESSION: 1. Deep vein thrombus within the left popliteal, posterior tibial, peroneal, gastrocnemius veins. 2. No deep vein thrombus within the right lower extremity. Findings are being called to the ordering provider. Electronically authenticated by: PAIGE DYER Date: 06/27/2024 14:52
== END 2024-06-27 13:36 | disposition home or self-care (01) ==
LOC: US 13:35
PROVIDERS: Family Provider Family Medicine; PCP Nurse Practitioner Family; Visit Provider Internal Medicine Hematology & Oncology
DX: C79.51 Secondary malignant neoplasm of bone (principal); D64.9 Anemia, unspecified; E83.52 Hypercalcemia; Z72.0 Tobacco use; Z12.5 Encounter for screening for malignant neoplasm of prostate; D72.829 Elevated white blood cell count, unspecified; C34.81 Malignant neoplasm of overlapping sites of right bronchus and lung; R11.2 Nausea with vomiting, unspecified; C77.0 Secondary and unspecified malignant neoplasm of lymph nodes of head, face and neck; I82.621 Acute embolism and thrombosis of deep veins of right upper extremity; I82.4Z2 Acute embolism and thrombosis of unspecified deep veins of left distal lower extremity
CPT/HCPCS: 93970; 93971

== ENCOUNTER 2024-06-30 06:00 | Outpatient (RCR) | payer MEDICAID, SELFPAY | END 2024-07-29 23:59 | disposition home or self-care (01) | LOC: MM 06:00 | PROVIDERS: Family Provider Family Medicine; PCP Nurse Practitioner Family; Visit Provider Internal Medicine | DX: Z51.81 Encounter for therapeutic drug level monitoring (principal); Z79.01 Long term (current) use of anticoagulants; I82.409 Acute embolism and thrombosis of unspecified deep veins of unspecified lower extremity ==

== ENCOUNTER 2024-07-04 07:37 | Outpatient (RCR) | payer MEDICAID, SELFPAY ==
--- OUTSIDE RECORDS SUMMARY | 2024-07-04 07:40 | XMS_ITS | CCD ---
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 diagnosed with stage IV squamous cell carcinoma but has not started any treatment. He is currently resting comfortably at the edge of his bed and is cooperative. At this time, he would be open to any treatment plans that alleviate his pain. Pertinent Labs: WBC: 23.6 Hgb: 11.9 Ca: 7.5 Proca.15 Vit D: 10.4 Phos: 2.1 PTH: 4 Patient History History reviewed. No pertinent surgical history. Past Medical History: Diagnosis Date Cancer (CMS/HCC) No Known Allergies Current Facility-Administered Medications: acetaminophen (Tylenol) tablet 650 mg, 650 mg, oral, q6h PRN, Juan Márquez NP bisacodyl (Dulcolax) suppository 10 mg, 10 mg, rectal, Daily PRN, Arabella Mcarthur NP droNABinol (Marinol) capsule 2.5 mg, 2.5 mg, oral, BID AC, Arabella Mcarthur NP, 2.5 mg at 06/06/24 0506 enoxaparin (Lovenox) syringe 50 mg, 1 mg/kg, subcutaneous, BID Enox, Srabjit Johnson MD, 50 mg at 06/05/24 1756 melatonin tablet 5 mg, 5 mg, oral, Nightly PRN, Juan Márquez NP ondansetron ODT (Zofran-ODT) disintegrating tablet 4 mg, 4 mg, oral, q8h PRN, 4 mg at 06/05/24 0902 OR ondansetron HCl (PF) (Zofran) injection 4 mg, 4 mg, intravenous, q6h PRN, Juan Márquez NP, 4 mg at 06/03/24 0951 oxyCODONE (Roxicodone) immediate release tablet 5 mg, 5 mg, oral, q4h PRN, Arabella Mcarthur, ESTER oxyCODONE ER (OxyCONTIN) 12 hr tablet 10 mg, 10 mg, oral, q12h MAICO, Sarbjit Johnson MD, 10 mg at 06/05/242199 polyethylene glycol (Glycolax) packet 17 g, 17 g, oral, Daily PRN, Sarbjit Johnson MD, 17 g at 06/05/24 0856 sennosides-docusate sodium (Alexus-Colace) 8.6-50 mg per tablet 2 tablet, 2 tablet, oral, BID, Arabella Mcarthur, ESTER, 2 tablet at 06/05/242199 Insert peripheral IV, , , Once AND Saline lock IV, , , Once AND sodium chloride flush 10 mL, 10 mL, intravenous, q8h PRN, Juan Márquez NP sodium chloride flush 10 mL, 10 mL, intravenous, q12h, Duglas Lala MD, 10 mL at 06/05/242044 sodium chloride flush 10 mL, 10 mL, intravenous, PRN, Duglas Lala MD sodium chloride flush 20 mL, 20 mL, intravenous, PRN, Duglas Lala MD thiamine (Vitamin B-1) tablet 50 mg, 50 mg, oral, Daily, Sarbjit Johnson MD, 50 mg at 06/05/24 0857 Social History Socioeconomic History Marital status: Spouse name: Not on file Number of children: Not on file Years of education: Not on file Highest education level: Not on file Occupational History Not on file Tobacco Use Smoking status: Former Packs/day: 3 Types: Cigarettes Start date: 1985 Quit date: 05/29/2024 Years since quittin.0 Smokeless tobacco: Never Vaping Use Vaping Use: Never used Substance and Sexual Activity Alcohol use: Not Currently Drug use: Yes Types: Marijuana Sexual activity: Yes Other Topics Concern Not on file Social History Narrative Not on file Social Determinants of Health Financial Resource Strain: Medium Risk (06/02/2024) Overall Financial Resource Strain (CARDIA) Difficulty of Paying Living Expenses: Somewhat hard Food Insecurity: Food Insecurity Present (06/02/2024) Hunger Vital Sign Worried About Running Out of Food in the Last Year: Sometimes true Ran Out of Food in the Last Year: Not on file Transportation Needs: No Transportation Needs (06/02/2024) Transportation Lack of Transportation (Medical): No Lack of Transportation (Non-Medical): Not on file Physical Activity: Not on file Stress: Not on file Social Connections: Not on file Intimate Partner Violence: Unknown (06/02/2024) Humiliation, Afraid, Rape, and Kick questionnaire Fear of Current or Ex-Partner: No Emotionally Abused: Not on file Physically Abused: Not on file Sexually Abused: Not on file Housing Stability: Low Risk (06/02/2024) Housing Stability Vital Sign Unable to Pay for Housing in the Last Year: Not on file Number of Places Lived in (more content not included)... Normal [facility] CT UPPER EXTREMITY RIGHT W A ND WO IV CONTRASTon 06-06-2024 CT UPPER EXTREMITY RIGHT W AND WO IV CONTRAST CT right upper extremity without and with contrast HISTORY: Lesion COMPARISON: Radiographs same day TECHNIQUE: CT right upper extremity without and with contrast performed according to standard protocol. FINDINGS: There is a large heterogeneously enhancing lytic lesion in the proximal right humerus measuring approximately 9.9 x 6.8 x 7.1 cm. This mass extends into the soft tissues surrounding the humerus. Significant vascularity seen surrounding this lesion. There is extension into the inferior aspect of the glenohumeral joint. The soft tissue partially surrounds the undersurface of the glenoid. Additional lytic changes in the anterior cortex of the mid right humeral shaft. Diffuse osteopenia. Small lytic lesion involving the anterior cortex of the proximal right femur. Emphysema. Patchy airspace disease in the right upper lobe and right middle lobe compatible with pneumonia. Partially visualized numerous centrally necrotic enlarged right hilar and right mediastinal lymph nodes. There are also pathologically enlarged lymph nodes in the visualized lower right neck. Enhancing subcutaneous lesion in the right posterior chest wall measuring 1.1 cm. IMPRESSION: *Large heterogeneously enhancing lytic destructive mass in the right humeral head extending into the proximal right humeral metadiaphysis, with large soft tissue component. Appearance compatible with malignancy/metastatic disease. *Additional lytic changes in the anterior cortex of the mid right humeral diaphysis suspicious for malignancy. There is also a small lytic lesion in the anterior cortex of the proximal right femur. *Numerous pathologically enlarged right paratracheal, right hilar, and right lower neck lymph nodes. There is also enhancing subcutaneous nodule suspicious for metastasis in the right posterior chest wall. *Multifocal airspace disease in the right upper and middle lobes. All CT scans at this facility use dose modulation, iterative reconstruction, and/or weight based dosing when appropriate to reduce radiation dose to as low as reasonably achievable. Electronically signed: Alfred Trent MD. Not Vldtd Invalid Interpretation Code [facility] MAGNESIUMon 06-06-2024 Magnesium [Mass/Vol] 2.0 mg/dL Normal 1.9-2.7 [facility] Comment on above: Performed By: #### L [id number] #### [facility] ([facility]) [address] [place] [address] Magnesium [Mass/Vol] 2.0 mg/dL Normal 1.9-2.7 [facility] Comment on above: Performed By: #### L [id number] ####[facility] ([facility])[address] [place] [address] 30on 06-05-2024 30 The patient is Moderately Stable - Low risk of patient condition declining or worsening The patient's goals for the shift include rest The clinical goals for the shift include stable vitals Normal [facility] BASIC METABOLIC PANELon 10-0 Anion gap [Moles/Vol] 10 mmol/L Normal 7-20 [facility] Comment on above: Performed By: #### L [id number] #### [facility] ([facility]) [address] [place] [address] Calcium [Mass/Vol] 7.2 mg/dL Low 8.6-10.3 [facility] Comment on above: Performed By: #### L [id number] #### [facility] ([facility]) [address] [place] [address] Chloride [Moles/Vol] 105 mmol/L Normal 98-107 [facility] Comment on above: Performed By: #### L [id number] #### [facility] ([facility]) [address] [place] [address] CO2 [Moles/Vol] 23 mmol/L Normal 21-31 [facility] Comment on above: Performed By: #### L [id number] #### [facility] ([facility]) [address] [place] [address] Creatinine [Mass/Vol] 0.64 mg/dL Low 0.70-1.30 [facility] Comment on above: Performed By: #### L [id number] #### [facility] ([facility]) [address] [place] [address] GLOMERULAR FILTRATION RATE ML/MIN/1.73 SQ M.PREDICTED 111.1 mL/min/1.73m*2 Normal >60.0 [facility] Comment on above: Result Comment: The [facility]???s estimated glomerular filtration rate (eGFR) will no longer include consideration of race in its calculation. The National Kidney Foundation???s eGFR Task Force developed new recommendations for the estimation of the glomerular filtration rate in the [place] They recommend immediate implementation of the new equation refit without the race variable in all laboratories because the calculation does not include race. In addition to not including race in the calculation and reporting, it included diversity in its development, and has acceptable performance characteristics and potential consequences that do not disproportionately affect any one group of individuals. Performed By: #### L [id number] #### [facility] ([facility]) [address] [place] [address] Glucose [Mass/Vol] 72 mg/dL Normal 70-100 [facility] Comment on above: Performed By: #### L [id number] #### [facility] ([facility]) [address] [place] [address] Potassium [Moles/Vol] 3.5 mmol/L Normal 3.5-5.1 [facility] Comment on above: Performed By: #### L [id number] #### [facility] ([facility]) [address] [place] [address] Sodium [Moles/Vol] 134 mmol/L Low 136-145 [facility] Comment on above: Performed By: #### L [id number] #### [facility] ([facility]) [address] [facility] [place] [address] Urea nitrogen [Mass/Vol] 26 mg/dL High 7-25 [facility] Comment on above: Performed By: #### L [id number] #### [facility] ([facility]) [address] [place] [address] UREA NITROGEN/CREATININ E (MASS RATIO) IN SER/PLAS 40.6 Normal [facility] Comment on above: Performed By: #### L [id number] #### [facility] ([facility]) [address] [place] [address] CBCon 06-05-2024 Erythrocyte distribution width (RBC) [Ratio] 14.4 % Normal 11.5-15.0 [facility] Comment on above: Performed By: #### L [id number] #### [facility] ([facility]) [address] [place] [address] ERYTHROCYTE MEAN CORPUSCULAR HEMOGLOBIN CONCENTRATION (G/DL) BY AUTOMATED 32.8 g/dL Normal 32.0-35.0 [facility] Comment on above: Performed By: #### L [id number] #### [facility] ([facility]) [address] [place] [address] Hematocrit (Bld) [Volume fraction] 35.7 % Low 39.0-55.0 [facility] Comment on above: Performed By: #### L [id number] #### [facility] ([facility]) [address] [place] [address] Hemoglobin (Bld) [Mass/Vol] 11.7 g/dL Low 13.0-17.0 [facility] Comment on above: Performed By: #### L [id number] #### [facility] ([facility] [address] [place] [address] MCH (RBC) [Entitic mass] 29.2 pg Normal 27.0-33.0 [facility] Comment on above: Performed By: #### L [id number] #### [facility] [address] [place] [address] MCV (RBC) [Entitic vol] 89.0 fL Normal 82.0-98.0 [facility] Comment on above: Performed By: #### L [id number] #### [facility] ([facility]) [address] [place] [address] PLATELETS (10*3/UL) IN BLOOD AUTOMATED COUNT 209 10*3/uL Normal 150-400 [facility] Comment on above: Performed By: #### L [id number] #### [facility] ([facility]) [address] [place] [address] RBC (Bld) [#/Vol] 4.01 10*6/uL Low 4.20-5.70 [facility] Comment on above: Performed By: #### L [id number] #### [facility] ([facility]) [address] [place] [address] WBC (Bld) [#/Vol] 30.44 10*3/uL High 4.00-10.60 [facility] Comment on above: Performed By: #### L [id number] #### [facility] ([facility]) [address] [place] [address] MAGNESIUMon 06-05-2024 Magnesium [Mass/Vol] 1.7 mg/dL Low 1.9-2.7 [facility] Comment on above: Performed By: #### L [id number] #### [facility] ([facility]) [address] [place] [address] 30on 06-04-2024 30 The patient is Moderately Unstable - Medium risk of patient condition declining or worsening The patient's goals for the shift include rest The clinical goals for the shift include education and comfort Problem: Pain - Adult Goal: Verbalizes/displays adequate comfort level or baseline comfort level Outcome: Progressing Flowsheets (Taken 06/02/20242101 by Elsi Oliveira RN) Verbalizes/displays adequate comfort level or baseline comfort level: Encourage patient to monitor pain and request assistance Assess pain using appropriate pain scale Administer analgesics based on type and severity of pain and evaluate response Note: Pain well controlled on current regimen without the use of IV medications, cont pain assessment, medication and reassessments as per order and prn Problem: Safety - Adult Goal: Free from fall injury Outcome: Progressing Flowsheets (Taken 06/02/20242101 by Elsi Oliveira RN) Free from fall injury: Assess patient frequently for physical needs Identify cognitive and physical deficits and behaviors that affect risk of falls [place] fall precautions as indicated by assessment Note: Reoriented to call light, close proximity to nurses station Problem: Skin/Tissue Integrity - Adult Goal: Incisions, wounds, or drain sites healing without S/S of infection Outcome: Progressing Flowsheets (Taken 06/04/2024 0004) Incisions, wounds, or drain sites healing without sign and symptoms of infection: TWICE DAILY: Assess and document dressing/incision, wound bed, drain sites and surrounding tissue Implement wound care per orders Note: Wound without s/sxs of infection, no drainage noted, wound care as per order Normal [facility] BASIC METABOLIC PANELon 10-0 Anion gap [Moles/Vol] 8 mmol/L Normal 7-20 [facility] Comment on above: Performed By: #### L [id number] #### [facility] ([facility]) [address] [place] [address] Calcium [Mass/Vol] 8.3 mg/dL Low 8.6-10.3 [facility] Comment on above: Performed By: #### L [id number] #### [facility] ([facility]) [address] [place] [address] Chloride [Moles/Vol] 104 mmol/L Normal 98-107 [facility] Comment on above: Performed By: #### L [id number] #### [facility] ([facility]) [address] [place] [address] CO2 [Moles/Vol] 24 mmol/L Normal 21-31 [facility] Comment on above: Performed By: #### L [id number] #### [facility] ([facility]) [address] [place] [address] Creatinine [Mass/Vol] 0.74 mg/dL Normal 0.70-1.30 [facility] Comment on above: Performed By: #### L [id number] #### [facility] ([facility]) [address] [place] [address] GLOMERULAR FILTRATION RATE ML/MIN/1.73 SQ M.PREDICTED 106.3 mL/min/1.73m*2 Normal >60.0 [facility] Comment on above: Result Comment: The [facility]???s estimated glomerular filtration rate (eGFR) will no longer include consideration of race in its calculation. The National Kidney Foundation???s eGFR Task Force developed new recommendations for the estimation of the glomerular filtration rate in the [place] They recommend immediate implementation of the new equation refit without the race variable in all laboratories because the calculation does not include race. In addition to not including race in the calculation and reporting, it included diversity in its development, and has acceptable performance characteristics and potential consequences that do not disproportionately affect any one group of individuals. Performed By: #### L [id number] #### [facility] ([facility]) [address] [place] [address] Glucose [Mass/Vol] 119 mg/dL High 70-100 [facility] Comment on above: Performed By: #### L [id number] #### [facility] ([facility]) [address] [place] [address] Potassium [Moles/Vol] 4.2 mmol/L Normal 3.5-5.1 [facility] Comment on above: Performed By: #### L [id number] #### [facility] ([facility]) [address] [facility] [place] [address] Sodium [Moles/Vol] 132 mmol/L Low 136-145 [facility] Comment on above: Performed By: #### L [id number] #### [facility] ([facility]) [address] [place] [address] Urea nitrogen [Mass/Vol] 25 mg/dL Normal 7-25 [facility] Comment on above: Performed By: #### L [id number] #### [facility] ([facility]) [address] [place] [address] UREA NITROGEN/CREATININ E (MASS RATIO) IN SER/PLAS 33.8 Normal [facility] Comment on above: Performed By: #### L [id number] #### [facility] ([facility]) [address] [place] [address] CBCon 06-04-2024 Erythrocyte distribution width (RBC) [Ratio] 14.5 % Normal 11.5-15.0 [facility] Comment on above: Performed By: #### L [id number] ####[facility] ([facility])[address] [place] [address] ERYTHROCYTE MEAN CORPUSCULAR HEMOGLOBIN CONCENTRATION (G/DL) BY AUTOMATED 32.5 g/dL Normal 32.0-35.0 [facility] Comment on above: Performed By: #### L [id number] ####[facility] ([facility])[address] [place] [address] Hematocrit (Bld) [Volume fraction] 34.2 % Low 39.0-55.0 [facility] Comment on above: Performed By: #### L [id number] ####[facility] ([facility])[address] [place] [address] Hemoglobin (Bld) [Mass/Vol] 11.1 g/dL Low 13.0-17.0 [facility] Comment on above: Performed By: #### L [id number] ####[facility] [place] [address] MCH (RBC) [Entitic mass] 28.8 pg Normal 27.0-33.0 [facility] Comment on above: Performed By: #### L [id number] ####[facility] [place] [address] MCV (RBC) [Entitic vol] 88.8 fL Normal 82.0-98.0 [facility] Comment on above: Performed By: #### L [id number] ####[facility] [place] [address] PLATELETS (10*3/UL) IN BLOOD AUTOMATED COUNT 245 10*3/uL Normal 150-400 [facility] Comment on above: Performed By: #### L [id number] ####[facility] ([facility] [place] [address] RBC (Bld) [#/Vol] 3.85 10*6/uL Low 4.20-5.70 [facility] Comment on above: Performed By: #### L [id number] ####[facility] ([facility] [place] [address] WBC (Bld) [#/Vol] 17.72 10*3/uL High 4.00-10.60 [facility] Comment on above: Performed By: #### L [id number] ####[facility] ([facility])[address] [place] [address] MAGNESIUMon 06-04-2024 Magnesium [Mass/Vol] 1.9 mg/dL Normal 1.9-2.7 [facility] Comment on above: Performed By: #### L [id number] ####[facility] ([facility])[address] [place] [address] NURSNOTEon 06-04-2024 NURSNOTE Contact made with DAREN Eagle. Patient has been very down today, conversation with his made in private. Briefly states he is worried as his utilities will be soon shut off. SW to come up to unit to speak with patient. Normal [facility] BASIC METABOLIC PANELon 10-0 Anion gap [Moles/Vol] 8 mmol/L Normal 7-20 [facility] Comment on above: Performed By: #### L [id number] #### [facility] [address] [place] [address] Calcium [Mass/Vol] 10.2 mg/dL Normal 8.6-10.3 [facility] Comment on above: Performed By: #### L [id number] #### [facility] ([facility]) [address] [place] [address] Chloride [Moles/Vol] 101 mmol/L Normal 98-107 [facility] Comment on above: Performed By: #### L [id number] #### [facility] ([facility]) [address] [place] [address] CO2 [Moles/Vol] 27 mmol/L Normal 21-31 [facility] Comment on above: Performed By: #### L [id number] #### [facility] ([facility]) [address] [place] [address] Creatinine [Mass/Vol] 0.68 mg/dL Low 0.70-1.30 [facility] Comment on above: Performed By: #### L [id number] #### [facility] ([facility]) [address] [place] [address] GLOMERULAR FILTRATION RATE ML/MIN/1.73 SQ M.PREDICTED 109.1 mL/min/1.73m*2 Normal >60.0 [facility] Comment on above: Result Comment: The [facility]???s estimated glomerular filtration rate (eGFR) will no longer include consideration of race in its calculation. The National Kidney Foundation???s eGFR Task Force developed new recommendations for the estimation of the glomerular filtration rate in the [place] They recommend immediate implementation of the new equation refit without the race variable in all laboratories because the calculation does not include race. In addition to not including race in the calculation and reporting, it included diversity in its development, and has acceptable performance characteristics and potential consequences that do not disproportionately affect any one group of individuals. Performed By: #### L [id number] #### [facility] ([facility]) [address] [place] [address] Glucose [Mass/Vol] 107 mg/dL High 70-100 [facility] Comment on above: Performed By: #### L [id number] #### [facility] ([facility]) [address] [place] [address] Potassium [Moles/Vol] 3.4 mmol/L Low 3.5-5.1 [facility] Comment on above: Performed By: #### L [id number] #### [facility] ([facility]) [address] [place] [address] Sodium [Moles/Vol] 133 mmol/L Low 136-145 [facility] Comment on above: Performed By: #### L [id number] #### [facility] [address] [place] [address] Urea nitrogen [Mass/Vol] 20 mg/dL Normal 7-25 [facility] Comment on above: Performed By: #### L [id number] #### [facility] [address] [place] [address] UREA NITROGEN/CREATININ E (MASS RATIO) IN SER/PLAS 29.4 Normal [facility] Comment on above: Performed By: #### L [id number] #### [facility] ([facility]) [address] [place] [address] CBCon 06-03-2024 Erythrocyte distribution width (RBC) [Ratio] 14.2 % Normal 11.5-15.0 [facility] Comment on above: Performed By: #### L [id number] #### [facility] ([facility]) [address] [place] [address] ERYTHROCYTE MEAN CORPUSCULAR HEMOGLOBIN CONCENTRATION (G/DL) BY AUTOMATED 32.6 g/dL Normal 32.0-35.0 [facility] Comment on above: Performed By: #### L [id number] #### [facility] ([facility]) [address] [place] [address] Hematocrit (Bld) [Volume fraction] 37.7 % Low 39.0-55.0 [facility] Comment on above: Performed By: #### L [id number] #### [facility] ([facility] [address] [place] [address] Hemoglobin (Bld) [Mass/Vol] 12.3 g/dL Low 13.0-17.0 [facility] Comment on above: Performed By: #### L [id number] #### [facility] ([facility] [address] [place] [address] MCH (RBC) [Entitic mass] 29.1 pg Normal 27.0-33.0 [facility] Comment on above: Performed By: #### L [id number] #### [facility] [address] [place] [address] MCV (RBC) [Entitic vol] 89.3 fL Normal 82.0-98.0 [facility] Comment on above: Performed By: #### L [id number] #### [facility] ([facility]) [address] [place] [address] PLATELETS (10*3/UL) IN BLOOD AUTOMATED COUNT 293 10*3/uL Normal 150-400 [facility] Comment on above: Performed By: #### L [id number] #### [facility] ([facility]) [address] [place] [address] RBC (Bld) [#/Vol] 4.22 10*6/uL Normal 4.20-5.70 [facility] Comment on above: Performed By: #### L [id number] #### [facility] ([facility]) [address] [place] [address] WBC (Bld) [#/Vol] 22.89 10*3/uL High 4.00-10.60 [facility] Comment on above: Performed By: #### L [id number] #### [facility] ([facility] [address] [place] [address] CBC WITH AUTO DIFFERENTIALon 06-03-2024 Basophils (Bld) [#/Vol] 0.02 10*3/uL Normal 0.00-0.20 [facility] Comment on above: Performed By: #### L [id number] #### [facility] ([facility]) [address] [place] [address] Basophils/100 WBC (Bld) 0.1 % Normal 0.0-1.0 [facility] Comment on above: Performed By: #### L [id number] #### [facility] ([facility]) [address] [place] [address] Eosinophils (Bld) [#/Vol] 0.06 10*3/uL Normal 0.00-0.50 [facility] Comment on above: Performed By: #### L [id number] #### [facility] ([facility]) [address] [place] [address] Eosinophils/100 WBC (Bld) 0.3 % Normal 0.0-6.0 [facility] Comment on above: Performed By: #### L [id number] #### [facility] [address] [place] [address] Erythrocyte distribution width (RBC) [Ratio] 14.5 % Normal 11.5-15.0 [facility] Comment on above: Performed By: #### L [id number] #### [facility] [address] [place] [address] ERYTHROCYTE MEAN CORPUSCULAR HEMOGLOBIN CONCENTRATION (G/DL) BY AUTOMATED 32.2 g/dL Normal 32.0-35.0 [facility] Comment on above: Performed By: #### L [id number] #### [facility] [address] [place] [address] Hematocrit (Bld) [Volume fraction] 37.0 % Low 39.0-55.0 [facility] Comment on above: Performed By: #### L [id number] #### [facility] ([facility]) [address] [place] [address] Hemoglobin (Bld) [Mass/Vol] 11.9 g/dL Low 13.0-17.0 [facility] Comment on above: Performed By: #### L [id number] #### [facility] ([facility]) [address] [place] [address] Immature granulocytes (Bld) [#/Vol] 0.10 10*3/uL Normal 0.00-0.20 [facility] Comment on above: Performed By: #### L [id number] #### [facility] ([facility]) [address] [place] [address] Immature granulocytes/100 WBC (Bld) 0.5 % Normal 0.0-1.0 [facility] Comment on above: Performed By: #### L [id number] #### [facility] ([facility]) [address] [place] [address] Lymphocytes (Bld) [#/Vol] 0.30 10*3/uL Low 1.20-4.00 [facility] Comment on above: Performed By: #### L [id number] #### [facility] ([facility]) [address] [place] [address] Lymphocytes/100 WBC (Bld) 1.6 % Low 20.0-45.0 [facility] Comment on above: Performed By: #### L [id number] #### [facility] ([facility]) [address] [place] [address] MCH (RBC) [Entitic mass] 29.2 pg Normal 27.0-33.0 [facility] Comment on above: Performed By: #### L [id number] #### [facility] ([facility]) [address] [place] [address] MCV (RBC) [Entitic vol] 90.7 fL Normal 82.0-98.0 [facility] Comment on above: Performed By: #### L [id number] #### [facility] ([facility]) [address] [place] [address] Monocytes (Bld) [#/Vol] 0.47 10*3/uL Normal 0.10-1.00 [facility] Comment on above: Performed By: #### L [id number] #### [facility] [address] [place] [address] Monocytes/100 WBC (Bld) 2.5 % Low 5.0-12.0 [facility] Comment on above: Performed By: #### L [id number] #### [facility] ([facility]) [address] [place] [address] Neutrophils (Bld) [#/Vol] 18.23 10*3/uL High 1.60-7.60 [facility] Comment on above: Performed By: #### L [id number] #### [facility] ([facility]) [address] [place] [address] Neutrophils/100 WBC (Bld) 95.0 % High 40.0-72.0 [facility] Comment on above: Performed By: #### L [id number] #### [facility] ([facility]) [address] [place] [address] NRBC (PER 100 WBCS) BY AUTOMATED COUNT 0.0 % Normal 0 [facility] Comment on above: Performed By: #### L [id number] #### [facility] ([facility]) [address] [place] [address] PLATELETS (10*3/UL) IN BLOOD AUTOMATED COUNT 238 10*3/uL Normal 150-400 [facility] Comment on above: Performed By: #### L [id number] #### [facility] ([facility]) [address] [place] [address] RBC (Bld) [#/Vol] 4.08 10*6/uL Low 4.20-5.70 [facility] Comment on above: Performed By: #### L [id number] #### [facility] ([facility]) [address] [place] [address] WBC (Bld) [#/Vol] 19.18 10*3/uL High 4.00-10.60 [facility] Comment on above: Performed By: #### L [id number] #### [facility] [address] [place] [address] COMPREHENSIVE METABOLIC PANE Junaid 06-03-2024 Albumin [Mass/Vol] 2.3 g/dL Low 3.5-5.7 [facility] Comment on above: Performed By: #### L [id number] #### [facility] [address] [place] [address] ALP [Catalytic activity/Vol] 188 U/L High 34-104 [facility] Comment on above: Performed By: #### L [id number] #### [facility] ([facility]) [address] [place] [address] ALT [Catalytic activity/Vol] 48 U/L Normal 7-52 [facility] Comment on above: Performed By: #### L [id number] #### [facility] ([facility]) [address] [place] [address] Anion gap [Moles/Vol] 9 mmol/L Normal 7-20 [facility] Comment on above: Performed By: #### L [id number] #### [facility] ([facility]) [address] [place] [address] AST [Catalytic activity/Vol] 64 U/L High 13-39 [facility] Comment on above: Performed By: #### L [id number] #### [facility] ([facility]) [address] [place] [address] Bilirubin [Mass/Vol] 0.9 mg/dL Normal 0.3-1.0 [facility] Comment on above: Performed By: #### L [id number] #### [facility] ([facility]) [address] [place] [address] Calcium [Mass/Vol] 9.0 mg/dL Normal 8.6-10.3 [facility] Comment on above: Performed By: #### L [id number] #### [facility] ([facility]) [address] [place] [address] Chloride [Moles/Vol] 101 mmol/L Normal 98-107 [facility] Comment on above: Performed By: #### L [id number] #### [facility] [address] [place] [address] CO2 [Moles/Vol] 24 mmol/L Normal 21-31 [facility] Comment on above: Performed By: #### L [id number] #### [facility] [address] [place] [address] Creatinine [Mass/Vol] 0.68 mg/dL Low 0.70-1.30 [facility] Comment on above: Performed By: #### L [id number] #### [facility] ([facility]) [address] [place] [address] GLOMERULAR FILTRATION RATE ML/MIN/1.73 SQ M.PREDICTED 109.1 mL/min/1.73m*2 Normal >60.0 [facility] Comment on above: Result Comment: The [facility]???s estimated glomerular filtration rate (eGFR) will no longer include consideration of race in its calculation. The National Kidney Foundation???s eGFR Task Force developed new recommendations for the estimation of the glomerular filtration rate in the [place] They recommend immediate implementation of the new equation refit without the race variable in all laboratories because the calculation does not include race. In addition to not including race in the calculation and reporting, it included diversity in its development, and has acceptable performance characteristics and potential consequences that do not disproportionately affect any one group of individuals. Performed By: #### L [id number] #### [facility] ([facility]) [address] [place] [address] Glucose [Mass/Vol] 107 mg/dL High 70-100 [facility] Comment on above: Performed By: #### L [id number] #### [facility] ([facility]) [address] [place] [address] Potassium [Moles/Vol] 4.3 mmol/L Normal 3.5-5.1 [facility] Comment on above: Performed By: #### L [id number] #### [facility] ([facility]) [address] [place] [address] Protein [Mass/Vol] 5.7 g/dL Low 6.0-8.3 [facility] Comment on above: Performed By: #### L [id number] #### [facility] ([facility]) [address] [facility] [place] [address] Sodium [Moles/Vol] 130 mmol/L Low 136-145 [facility] Comment on above: Performed By: #### L [id number] #### [facility] [address] [place] [address] Urea nitrogen [Mass/Vol] 17 mg/dL Normal 7-25 [facility] Comment on above: Performed By: #### L [id number] #### [facility] ([facility]) [address] [place] [address] UREA NITROGEN/CREATININ E (MASS RATIO) IN SER/PLAS 25.0 Normal [facility] Comment on above: Performed By: #### L [id number] #### [facility] ([facility]) [address] [place] [address] GRAM STAINon 06-03-2024 GRAM STAIN RESULT Normal [facility] Comment on above: Result Comment: Spec imen contains >25 Epithelial Cells/LPF, unsuitable for culture. Please submit a new specimen >25 Squamous Epithelial Cells Per Low Power Field >25 Polys Per Low Power Field Performed By: #### L [id number] #### [facility] ([facility]) [address] [place] [address] MAGNESIUMon 06-03-2024 Magnesium [Mass/Vol] 1.8 mg/dL Low 1.9-2.7 [facility] Comment on above: Performed By: #### L [id number] #### [facility] ([facility]) [address] [place] [address] MRSA/MSSA DNA NASALon 2023 MRSA DNA Negative Normal Negative [facility] Comment on above: Order Comment: Testi ng methodology is an automated qualitative in vitro diagnostic test for the directdetection and differentiation of Staphylococcus aureus (SA) DNA and methicillin-resistant Staphylococcus aureus (MRSA) DNA from nasal swabs in patients at risk for nasal colonization. The test utilizes real-time polymerase chain reaction (PCR) for the amplification of MRSA/SA DNA and fluorogenic target-specific hybridization probes for the detection of the amplified DNA. A negative result does not preclude nasal colonization. Performed By: #### L [id number] #### [facility] ([facility] [address] [place] [address] MSSA DNA Negative Normal Negative [facility] Comment on above: Order Comment: Iliana mccollum methodology is an automated qualitative in vitro diagnostic test for the directdetection and differentiation of Staphylococcus aureus (SA) DNA and methicillin-resistant Staphylococcus aureus (MRSA) DNA from nasal swabs in patients at risk for nasal colonization. The test utilizes real-time polymerase chain reaction (PCR) for the amplification of MRSA/SA DNA and fluorogenic target-specific hybridization probes for the detection of the amplified DNA. A negative result does not preclude nasal colonization. Performed By: #### L [id number] #### [facility] ([facility]) [address] [place] [address] NURSNOTEon 06-03-2024 [facility] call to unit to notify staff patient is showing the rhythm of ventricular trigeminy. Patient is immediately assessed. He continues to be sitting on side of bed. Denies any distress but voices he can feel the rhythm change which is not unusual for him. Blood pressure is 113/84 with a pulse of 72. Respirations are even and non labored. Denies pain. Monitor and leads assessed, black lead placed back on. Will continue to monitor, call light in reach. Providers notified, request to be notified of any electrolyte imbalances once labs complete after chemo runs. Normal [facility] ANITA Called to confirm order for infusion rate of Taxol with Primary RN Chana George due to primary RN receiving cyril note from lead nurse stating to run the infusion rate different from what is ordered because she called to verify the infusion rate with [facility] and infusion center and was told to run the Taxol at 10ml/hr for 15mins, then increase to 50ml/hr for 15mins, then increase to full rate to prevent reactions despite no official physician order, no reputable education from [facility], Etc, and no hospital policy to state otherwise. Infusion rate for Taxol was confirmed with Tim Miller PharmD to run at fixed rate per order. PharmD had stated that he has not had any other indication or information to run it otherwise. Normal [facility] POCT GLUCOSE METER UNSOLICIT ED RESULTSon 06-03-2024 Glucose [Mass/Vol] 95 mg/dL Normal 70-105 [facility] Comment on above: Order Comment: Waive d Testing in the ED is performed under the ED CLIA certificate #[id number]. Result Comment: [email or web address] Performed By: #### L [id number] #### [facility] ([facility]) [address] [place] [address] PROCALCITONIN TESTon 024 PROCALCITONIN IN BLOOD 0.15 ng/mL High 0.00-0.10 [facility] Comment on above: Result Comment: Susp ected Lower Respiratory Tract Infection: 0.1-0.25 ng/mL - Low likelihood for bacterial infection;Antibiotics discouraged.* >0.25 ng/mL - Increased likelihood bacterial infection;Antibiotics encouraged. ____ Suspected Sepsis: Strongly consider initiating antibiotics in all unstable patients. 0.1-0.5 ng/mL - Low likelihood for sepsis; Antibiotics discouraged.* >0.5 ng/mL - Increased likelihood sepsis; Antibiotics encouraged. >2.0 ng/mL - High risk of sepsis/septic shock; Antibiotics strongly encouraged. *Recommend retesting PCT within 6-12 hours if clinically indicated and initial PCT<0.5ng/mL Performed By: #### L [id number] ####[facility] ([facility])[address] [place] [address] 30on 06-02-2024 30 The patient is Moderately Stable - Low risk of patient condition declining or worsening The patient's goals for the shift include rest The clinical goals for the shift include VSS, comfort Problem: Pain - Adult Goal: Verbalizes/displays adequate comfort level or baseline comfort level Outcome: Progressing Flowsheets (Taken 06/02/20242101) Verbalizes/displays adequate comfort level or baseline comfort level: Encourage patient to monitor pain and request assistance Assess pain using appropriate pain scale Administer analgesics based on type and severity of pain and evaluate response Problem: Safety - Adult Goal: Free from fall injury Outcome: Progressing Flowsheets (Taken 06/02/20242101) Free from fall injury: Assess patient frequently for physical needs Identify cognitive and physical deficits and behaviors that affect risk of falls [place] fall precautions as indicated by assessment Problem: Discharge Planning Goal: Discharge to home or other facility with appropriate resources Outcome: Progressing Flowsheets (Taken 06/02/20242101) Discharge to home or other facility with appropriate resources: Identify barriers to discharge with patient and caregiver Arrange for needed discharge resources and transportation as appropriate Problem: Chronic Conditions and Co-morbidities Goal: Patient's chronic conditions and co-morbidity symptoms are monitored and maintained or improved Outcome: Progressing Flowsheets (Taken 06/02/20242101) Care Plan - Patient's Chronic Conditions and Co-Morbidity Symptoms are Monitored and Maintained or Improved: Monitor and assess patient's chronic conditions and comorbid symptoms for stability, deterioration, or improvement Normal [facility] 30 The patient is Moderately Stable - Low risk of patient condition declining or worsening The patient's goals for the shift include Rest The clinical goals for the shift include VSS Normal [facility] BLOOD CULTUREon 06-02-2024 Bacteria identified Cx Nom (Bld) No growth at 5 days [facility] Comment on above: Order Comment: Waive d Testing in the ED is performed under the ED CLIA certificate #[id number]. Performed By: #### L [id number] #### [facility] ([facility]) [address] [place] [address] Bacteria identified Cx Nom (Bld) No growth at 5 days Normal [facility] Comment on above: Performed By: #### L [id number] ####[facility] ([facility])[address] [place] [address] CALCIUMon 06-02-2024 Calcium [Mass/Vol] 7.9 mg/dL Low 8.6-10.3 [facility] Comment on above: Performed By: #### L [id number] ####[facility] [place] [address] CBC WITH AUTO DIFFERENTIALon 06-02-2024 Basophils (Bld) [#/Vol] 0.04 10*3/uL Normal 0.00-0.20 [facility] Comment on above: Performed By: #### L [id number] #### [facility] ([facility]) [address] [place] [address] Basophils/100 WBC (Bld) 0.2 % Normal 0.0-1.0 [facility] Comment on above: Performed By: #### L [id number] #### [facility] ([facility]) [address] [place] [address] Eosinophils (Bld) [#/Vol] 0.31 10*3/uL Normal 0.00-0.50 [facility] Comment on above: Performed By: #### L [id number] #### [facility] ([facility]) [address] [place] [address] Eosinophils/100 WBC (Bld) 1.6 % Normal 0.0-6.0 [facility] Comment on above: Performed By: #### L [id number] #### [facility] ([facility]) [address] [place] [address] Erythrocyte distribution width (RBC) [Ratio] 14.1 % Normal 11.5-15.0 [facility] Comment on above: Performed By: #### L [id number] #### [facility] ([facility]) [address] [place] [address] ERYTHROCYTE MEAN CORPUSCULAR HEMOGLOBIN CONCENTRATION (G/DL) BY AUTOMATED 32.1 g/dL Normal 32.0-35.0 [facility] Comment on above: Performed By: #### L [id number] #### [facility] [address] [place] [address] Hematocrit (Bld) [Volume fraction] 34.6 % Low 39.0-55.0 [facility] Comment on above: Performed By: #### L [id number] #### [facility] [address] [place] [address] Hemoglobin (Bld) [Mass/Vol] 11.1 g/dL Low 13.0-17.0 [facility] Comment on above: Performed By: #### L [id number] #### [facility] ([facility]) [address] [place] [address] Immature granulocytes (Bld) [#/Vol] 0.10 10*3/uL Normal 0.00-0.20 [facility] Comment on above: Performed By: #### L [id number] #### [facility] ([facility]) [address] [place] [address] Immature granulocytes/100 WBC (Bld) 0.5 % Normal 0.0-1.0 [facility] Comment on above: Performed By: #### L [id number] #### [facility] ([facility]) [address] [place] [address] Lymphocytes (Bld) [#/Vol] 0.60 10*3/uL Low 1.20-4.00 [facility] Comment on above: Performed By: #### L [id number] #### [facility] ([facility]) [address] [place] [address] Lymphocytes/100 WBC (Bld) 3.1 % Low 20.0-45.0 [facility] Comment on above: Performed By: #### L [id number] #### [facility] [facility]) [address] [place] [address] MCH (RBC) [Entitic mass] 29.1 pg Normal 27.0-33.0 [facility] Comment on above: Performed By: #### L [id number] #### [facility] ([facility]) [address] [address] MCV (RBC) [Entitic vol] 90.6 fL Normal 82.0-98.0 [facility] Comment on above: Performed By: #### L [id number] #### [facility] ([facility]) [address] [place] [address] Monocytes (Bld) [#/Vol] 1.31 10*3/uL High 0.10-1.00 [facility] Comment on above: Performed By: #### L [id number] #### [facility] ([facility]) [address] [place] [address] Monocytes/100 WBC (Bld) 6.8 % Normal 5.0-12.0 [facility] Comment on above: Performed By: #### L [id number] #### [facility] ([facility]) [address] [place] [address] Neutrophils (Bld) [#/Vol] 16.91 10*3/uL High 1.60-7.60 [facility] Comment on above: Performed By: #### L [id number] #### [facility] ([facility]) [address] [place] [address] Neutrophils/100 WBC (Bld) 87.8 % High 40.0-72.0 [facility] Comment on above: Performed By: #### L [id number] #### [facility] ([facility]) [address] [place] [address] NRBC (PER 100 WBCS) BY AUTOMATED COUNT 0.0 % Normal 0 [facility] Comment on above: Performed By: #### L [id number] #### [facility] ([facility]) [address] [place] [address] PLATELETS (10*3/UL) IN BLOOD AUTOMATED COUNT 281 10*3/uL Normal 150-400 [facility] Comment on above: Performed By: #### L [id number] #### [facility] ([facility]) [address] [place] [address] RBC (Bld) [#/Vol] 3.82 10*6/uL Low 4.20-5.70 [facility] Comment on above: Performed By: #### L [id number] #### [facility] ([facility]) [address] [place] [address] WBC (Bld) [#/Vol] 19.27 10*3/uL High 4.00-10.60 [facility] Comment on above: Performed By: #### L [id number] #### [facility] ([facility]) [address] [place] [address] COMPREHENSIVE METABOLIC PANE Junaid 06-02-2024 Albumin [Mass/Vol] 2.4 g/dL Low 3.5-5.7 [facility] Comment on above: Performed By: #### L [id number] ####[facility] ([facility])[address] [place] [address] ALP [Catalytic activity/Vol] 177 U/L High 34-104 [facility] Comment on above: Performed By: #### L [id number] ####[facility] ([facility])[address] [place] [address] ALT [Catalytic activity/Vol] 43 U/L Normal 7-52 [facility] Comment on above: Performed By: #### L [id number] ####[facility] ([facility])[address] [place] [address] Anion gap [Moles/Vol] 12 mmol/L Normal 7-20 [facility] Comment on above: Performed By: #### L [id number] ####[facility] ([facility])[address] [place] [address] AST [Catalytic activity/Vol] 56 U/L High 13-39 [facility] Comment on above: Performed By: #### L [id number] ####[facility] ([facility])[address] [place] [address] Bilirubin [Mass/Vol] 0.6 mg/dL Normal 0.3-1.0 [facility] Comment on above: Performed By: #### L [id number] ####[facility] ([facility])[address] [place] [address] Calcium [Mass/Vol] 11.2 mg/dL High 8.6-10.3 [facility] Comment on above: Performed By: #### L [id number] ####[facility] ([facility])[address] [place] [address] Chloride [Moles/Vol] 98 mmol/L Normal 98-107 [facility] Comment on above: Performed By: #### L [id number] ####[facility] ([facility])[address] [place] [address] CO2 [Moles/Vol] 28 mmol/L Normal 21-31 [facility] Comment on above: Performed By: #### L [id number] ####[facility] ([facility])[address] [place] [address] Creatinine [Mass/Vol] 0.82 mg/dL Normal 0.70-1.30 [facility] Comment on above: Performed By: #### L [id number] ####[facility] ([facility])[address] [place] [address] GLOMERULAR FILTRATION RATE ML/MIN/1.73 SQ M.PREDICTED 103.1 mL/min/1.73m*2 Normal >60.0 [facility] Comment on above: Result Comment: The [facility]???s estimated glomerular filtration rate (eGFR) will no longer include consideration of race in its calculation. The National Kidney Foundation???s eGFR Task Force developed new recommendations for the estimation of the glomerular filtration rate in the [place] They recommend immediate implementation of the new equation refit without the race variable in all laboratories because the calculation does not include race. In addition to not including race in the calculation and reporting, it included diversity in its development, and has acceptable performance characteristics and potential consequences that do not disproportionately affect any one group of individuals. Performed By: #### L [id number] ####[facility] ([facility])[address] [place] [address] Glucose [Mass/Vol] 67 mg/dL Low 70-100 [facility] Comment on above: Performed By: #### L [id number] ####[facility] ([facility])[address] [place] [address] Potassium [Moles/Vol] 3.5 mmol/L Normal 3.5-5.1 [facility] Comment on above: Performed By: #### L [id number] ####[facility] ([facility])[address] [place] [address] Protein [Mass/Vol] 6.1 g/dL Normal 6.0-8.3 [facility] Comment on above: Performed By: #### L [id number] ####[facility] ([facility])[address] [place] [address] Sodium [Moles/Vol] 134 mmol/L Low 136-145 [facility] Comment on above: Performed By: #### L [id number] ####[facility] ([facility])[address] [place] [address] Urea nitrogen [Mass/Vol] 24 mg/dL Normal 7-25 [facility] Comment on above: Performed By: #### L [id number] ####[facility] ([facility])[address] [place] [address] UREA NITROGEN/CREATININ E (MASS RATIO) IN SER/PLAS 29.3 Normal [facility] Comment on above: Performed By: #### L [id number] ####[facility] ([facility])[address] [place] [address] CONSULTon 06-02-2024 CONSULT [facility] CONSULT NOTE 06/02/2024 Patient Name: Kristen Smith : 1965 ADVANCED DIRECTIVES: None CODE STATUS: Full Code REASON FOR CONSULTATION: Palliative medicine consult requested by Sarbjit Johnson MD for Kristen Smith who is 58 y.o. to assist with complex decision-making, symptom control, and goals of care. HPI: Kristen Smith is a 58 y.o. male who was admitted on 06/01/2024 from [facility] where she presented with weakness. He was recently diagnosed with lung cancer. [place] ED course found patient to be hypercalcemic with a large amount of erosion of the proximal humerus. In collaboration with patient's oncologist, patient was given IV pamidronate as well as IV fluids while at [facility] and then arranged for transfer here to [facility]. XR chest showed right paratracheal fullness likely charter representative of lymphadenopathy which had been previously seen on prior CT. No new focal parenchymal infiltrates. XR right shoulder exhibits lytic destructive soft tissue mass of the proximal humerus that has significantly progressed from previous exam. No definite acute fracture. Past Medical History: Diagnosis Date Cancer (CMS/HCC) History reviewed. No pertinent surgical history. ALLERGIES: Patient has no known allergies. Prior to Admission medications Medication Sig Start Date End Date Taking? Authorizing Provider ondansetron (Zofran) 8 mg tablet Take 8 mg by mouth every 8 (eight) hours if needed for nausea or vomiting. Historical Provider, oxyCODONE ER (OxyCONTIN) 10 mg 12 hr tablet Take 10 mg by mouth every 12 (twelve) hours. Do not crush, chew, or split. Historical Provider, CURRENT MEDICATIONS: Reviewed SOCIAL HISTORY Living arrangement: With his Social supports: Family Marital status: Children: No biological children. Raised his step daughter. History of tobacco use: Quit 2 weeks ago History of alcohol use: None No family history on file. REVIEW OF SYSTEMS Constitutional: Pt c/o pain in his right shoulder. He rates it 7/10. Reports a poor appetite. No fatigue. Skin: He reports a sore on his back side. ENT: No runny nose or sore throat. Respiratory: Occasional SOB and cough. Cardiovascular: Occasional chest pain. Gastrointestinal: Occasional nausea. No recent BM but hasn't been eating much. Genitourinary: No dysuria. Musculoskeletal: Ambulates unassisted at home. Neurologic: Positive peripheral neuropathy. Psychiatric: No c/o depression. Positive anxiety. PHYSICAL EXAM BP 151/68 Pulse 58 Temp 37.2 ???C (98.9 ???F) Resp 16 Ht 1.778 m (5' 10 ) Wt 45.2 kg (99 lb 9.6 oz) SpO2 97% BMI 14.29 kg/m??? Intake/Output Summary (Last 24 hours) at 06/02/2024 1352 Last data filed at 06/02/2024 0730 Gross per 24 hour Intake 457.58 ml Output 250 ml Net 207.58 ml Skin: No wounds visualized. Eyes: Sclera anicteric. No exudate. HENT: Oral mucosa pink and moist. No nasal exudate. Left neck/clavicular mass present. Respiratory: Lungs diminished bilaterally. Respirations unlabored. Cardiovascular: HRR. No LE edema. Gastrointestinal: BS+x4. Abd not distended. Musculoskeletal: Significant sarcopenia. No noted joint deformity. Neurologic: Alert and oriented. Speech is clear. No facial droop. Psychologic: Normal affect. No verbalized hallucination or delusions. HEALTHCARE SURROGATE: Would be his CODE STATUS: Full code LIVING WILL: None PALLIATIVE CARE ASSESSMENT Metastatic lung cancer Encounter for palliative care Hypercalcemia RECOMMENDATION/PLAN Met with pt at bedside. Pt c/o pain but he just came back from testing and hasn't had any pain medication in a while. When he gets it it is very helpful. Reviewed goals in detail. He is ok with CPR and intubation and wants to remain a full code. He wouldn't want to live long-term on life support and would want his to take him off. He hasn't discussed this with her but he plans to. He reports he's never been given a prognosis so for now he's hoping to move forward with treatment for his cancer. He's still somewhat shocked about the diagnosis - he thought he had simply injured his shoulder. Emotional support provided. We will continue to support and follow. Thank you for your consultation and allowing us to participate in the care of Kristen Smith and please do not hesitate to call us with any questions. hired worker practitioner: [phone] Electronically signed by: Sandra Brennan NP [facility] CONSULT Adult Nutrition Assessment: Name: Kristen Smith Date: 1965 Date of Visit: 06/02/24 Admission Dx: Squamous cell carcinoma of lung, stage IV, right ([facility]/HCC) [C34.91] Reason for assessment: MD referral for pcm, wt loss and wounds Information obtained from: patient, medical record, nursing, physician, and speech therapy Past Medical History: Diagnosis Date Cancer (CMS/HCC) Current Medications: sodium chloride, 10 mL, intravenous, q12h sodium chloride, 10 mL, intravenous, q12h sodium chloride, 135 mL/hr, Last Rate: 135 mL/hr (06/02/24 0354) Labs: 0 Lab Value Date/Time BUN 24 06/02/2024318 CREATININE 0.82 06/02/2024318 NA 134 (L) 06/02/2024318 K 3.5 06/02/2024318 PHOS 2.1 (L) 06/02/2024318 MG 2.2 06/02/2024318 HGB 13.8 06/01/20242327 WBC 23.85 (H) 06/01/20242327 Other Pertinent Labs: Alb 2.4 Alk phos 177 Elevated Ca likely 2/2 malignancy (11.2) I/O: Intake/Output Summary (Last 24 hours) at 06/02/2024 1038 Last data filed at 06/02/2024 0730 Gross per 24 hour Intake 457.58 ml Output 250 ml Net 207.58 ml Allergies: No Known Allergies Nutrition Problems: Swallowing Assessment: Swallow screen 06/02. Pt reports no difficulty with liquids. However, for past few months, he feels as though when he tries to eat solids, they form a ball of sludge in his mouth and he can't swallow it. He often spits food out or if he tried to swallow it he would cough it back up. Mouth: Significantly altered taste Abdominal Assessment: Unknown last BM. Has not been having regular Bms with decreased oral intakes. Endorses nausea. Appetite: poor Cognition: A/O x4, pt self reports memory issues Nutrition deficits prior to admission: Calories and Protein Skin: unstageable to coccyx Edema: BLE +3 Other: newly diagnosed lung cancer with mets to R proximal humerus Physical Assessment: thin, frail, weak NFPE: Muscle (severe): oriental orthodox, clavicle, dorsal, acromion, scapula, calf, anterior thigh, patella, deltoid, pectoralis Fat (severe): upper arm tricep and bicep, orbital, thoracic, lumbar, midaxillary Nutrition Data/Clinical Indicators of Nutrition Status: Height: 177.8 cm (5' 10 ) Weight: 45.2 kg (99 lb 9.6 oz) BMI (Calculated): 14.29 Wt change: Pt reports significant wt loss over past 3 months Wt Readings from Last 10 Encounters: 05/25/24 50.3 kg 07/05/22 59 kg IBW: 75.5 kg UBW: 135-140 lbs - last weighed this ~3 months ago per pt Low BMI: <18.5 if Weight change: Severe 5.1 kg in 1 month (10.1%) 16.2 kg in 3 months (26.3%) Nutrition Assessment: Pt lives at home with . They have good access to food and prepares meals. Pt reports very poor appetite, decreased intakes and wt loss over past few months. He has altered taste in his mouth and reports food to be unappealing in general. When he tries to eat solids, he reports only being able to get a few bites down. Food causes him to become nauseas and he reports progressive difficulty swallowing. This mostly occurs with solids, as they form a ball of sludge when chewing and then he is unable to swallow the food appropriately. He often spits it out or coughs it back up. Due to decreased intakes, pt also has not been having regular bowel movements: unsure of last BM. For the past few months, pt has mainly been consuming bottled water, milk, OJ and lemonade. The importance of adequate intakes was discussed with pt. He voiced understanding and is open to trying smaller, more frequent intakes and ONS while in hospital. Discussed recommendations with LINUX [employer] SYSTEM ADMINISTRATOR, primary and RN via epic chat. Dietary Orders (From admission, onward) Start Ordered 06/01/241 Regular Diet Diet effective now Question: Room Service? Answer: Yes 06/01/242312 Nutrition Risk: High Nutrition Needs: (consideration: wound, pcm, cancer dx) Needs based on: actual body weight (45.2 kg) Calorie needs: 3207-9293 kcals/day based on Equation: 30-35 kcal/kg Protein needs: 68-90 g/day based on 1.5-2 g/kg Fluid needs: 1356 ml/day based on 30 ml/kg Nutrition Diagnosis: Severe protein calorie malnutrition rt chronic illness aeb wt loss >7.5% in 3 months, severe fat depletion, severe muscle depletion and estimated intakes <75% compared to estimated energy needs for >1 month Malnutrition Assessment: Clinical Indicators of Malnutrition: poor appetite, wound healing needs, low BMI <18.5 if < 70 yrs old, unintentional weight loss, reduced energy intake, loss of subcutaneous fat with locations identified, loss of muscle mass with location identified Malnutrition Assessment (Completed by BRAD) Severe PCM: Chronic Illness: >7.5% weight loss in 3 months, severe loss of subcutaneous fat, severe muscle loss, <75% est. energy loss require >/ or equal to 1 month Nutrition Treatment and Intervention Plan Textures per LIN[employer] SYSTEM ADMINISTRATOR pending swallow study, RD to change supplement, encouraged protein inta (more content not included)... Normal [facility] CT ABDOMEN PELVIS W IV CONTR Kim 06-02-2024 CT ABDOMEN PELVIS W IV CONTRAST STUDY: ENHANCED CT OF THE ABDOMEN AND PELVIS CLINICAL INFORMATION: Age/Gender: 58 years / Male History: Stage IV non-small cell lung cancer. PROCEDURE: Enhanced CT examination of the abdomen and pelvis was performed after administration of intravenous contrast. Enteric contrast was not administered. Multiplanar reformats, MIP, volume rendered 3-D images were generated on a separate workstation and reviewed to further define anatomy and possible pathology. All CT scans at this facility use dose modulation, iterative reconstruction, and/or weight based dosing when appropriate to reduce radiation dose to as low as reasonably achievable INTRAVENOUS CONTRAST: 100 mL of Omnipaque 350 COMPARISON: Limited comparison with outside report of CT of the abdomen and pelvis dated 07/05/2022. FINDINGS: LOWER THORAX: Groundglass opacities of the right middle lobe (4:4). Mild bibasilar atelectasis. Left lower lobe groundglass opacities (4:1). The heart is normal in size. Mildly prominent paraesophageal/posteri or mediastinal 1.2 x 1.1 cm lymph node (4:8). LIVER: Normal in size and configuration. No suspicious mass. Focal fat near the falciform ligament (4:51). Sub-5 mm hepatic hypodensities, too small to characterize (4:22). BILE DUCTS: No intrahepatic or extrahepatic bile duct dilation. GALLBLADDER: Layering sludge versus stones. Normal wall thickness. PANCREAS: Unremarkable. No main pancreatic duct dilation. SPLEEN: Unremarkable. ADRENAL GLANDS: Unremarkable. KIDNEYS/URETERS: No hydroureteronephrosis. No suspicious renal mass. BLADDER: Partially distended. REPRODUCTIVE ORGANS: Normal size prostate. Symmetric seminal vesicles. BOWEL: No disproportionate dilation of the small or large bowel. The appendix was not visualized, however there is no acute inflammatory process in the right lower quadrant. PERITONEUM/RETROPERITO NEUM: Small volume abdominopelvic ascites. No drainable fluid collection or pneumoperitoneum. LYMPH NODES: No abdominal or pelvic lymphadenopathy size criteria. VESSELS: Marked atherosclerosis, greater than expected for patient's age noting moderate atherosclerotic narrowing of the infrarenal abdominal aorta (4:54). No abdominal aortic aneurysm [AAA00]. ABDOMINAL/PELVIC WALL: Unremarkable. BONES: Indeterminant right femoral diaphyseal lesion with cortical breakthrough measuring 1.9 x 0.8 cm (6:30; 5:535). Ill-defined 0.6 x 0.4 cm left iliac osseous lesion with cortical breakthrough (5:299). Scattered osseous degenerative changes. IMPRESSION: Chest: 1.Groundglass opacities of the right middle lobe and to a lesser extent left lower lobe which may be infectious/inflammator y in etiology or secondary to an obstructive lung mass noting patient has reported history of lung cancer. 2.Indeterminant mildly prominent paraesophageal/posteri or mediastinal 1.2 cm lymph node, likely metastatic and less likely reactive. Consider further characterization with dedicated chest CT. Abdomen/pelvis: 1.Indeterminant right femoral diaphyseal and left iliac osseous lesions with cortical breakthrough, likely metastatic. 2.Small volume abdominopelvic ascites. 3.Marked atherosclerosis, greater than expected for patient's age noting moderate atherosclerotic narrowing of the infrarenal abdominal aorta. Electronically signed: Bettye Cosby. 6 Invalid Interpretation Code [facility] LACTIC ACID WITH 4 HOUR REFL EXon 06-02-2024 LACTATE (MMOL/L) IN SER/PLAS 1.5 mmol/L Normal 0.5-2.2 [facility] Comment on above: Performed By: #### L [id number] ####[facility] ([facility])[address] [place] [address] MAGNESIUMon 06-02-2024 Magnesium [Mass/Vol] 2.2 mg/dL Normal 1.9-2.7 [facility] Comment on above: Performed By: #### L [id number] #### [facility] ([facility]) [address] [place] [address] MR BRAIN W AND WO CONTRASTon 06-02-2024 MR BRAIN W AND WO CONTRAST MR BRAIN W AND WO CONTRAST 06/02/2024 11:26 AM INDICATION: Lung cancer, staging COMPARISON: None TECHNIQUE: Multiplanar multisequence MR images of the brain were obtained with and without intravenous contrast. FINDINGS: Examination is slightly limited due to patient motion. BRAIN: Moderate burden of nonspecific white matter signal abnormality, there is most predominant within the periventricular and pericallosal areas, slightly globular appearance. No definite diffusion restriction. No definite acute intracranial hemorrhage. Tiny approximately 2 mm enhancing lesion of the right midbrain (series 800, image 30), with suggestion of associated increased FLAIR signal. VENTRICLES: Normal ventricular size. VASCULATURE: Patent major intracranial arterial vasculature. Patent major dural venous sinuses. ORBITS: Unremarkable. PARANASAL SINUSES: Visualized paranasal sinuses are well-aerated. TEMPORAL BONE: Well-aerated middle ears and visualized mastoid air cells. SOFT TISSUES: The visualized head and neck soft tissues are unremarkable. OSSEOUS STRUCTURES: Unremarkable. IMPRESSION: 1.Tiny 2 mm area of enhancement within the right midbrain with likely associated increased FLAIR signal, concerning for metastatic disease given patient's history, although atypical in location. Short-term follow-up examination in 4-6 weeks recommended. 2.Moderate burden of nonspecific white matter signal abnormality most prominent in the periventricular region, chronic small vessel ischemia and demyelinating disease could be considered, among other etiologies. Electronically signed: Chandler Garcia MD. 8 Invalid Interpretation Code [facility] NURSNOTEon 06-02-2024 NURSNOTE RN aware, PICC team saw order for double lumen PICC for chemo, pt had blood cultures drawn today, RN aware PICC team will follow up after 48 hour prelim of blood cultures to potentially place PICC line Normal [facility] PHOSPHORUSon 06-02-2024 Magnesium [Mass/Vol] 2.1 mg/dL Low 2.5-5.0 [facility] Comment on above: Performed By: #### L [id number] #### [facility] ([facility]) [address] [place] [address] PTH, INTACTon 06-02-2024 PARATHYRIN INTACT (PG/ML) IN SER/PLAS 4 pg/mL Low 12-88 [facility] Comment on above: Performed By: #### L [id number] #### [facility] ([facility]) [address] [place] [address] PTH-RELATED PEPTIDEon 2023 PTH-RELATED PROTEIN PLASMA 49.5 pmol/L High 0.0-2.3 [facility] Comment on above: Result Comment: INTE RPRETIVE INFORMATION: Parathyroid Hormone-Related Peptide This test was developed and its performance characteristics determined by [facility]. It has not been cleared or approved by the [place] Food and Drug Administration. This test was performed in a CLIA certified laboratory and is intended for clinical purposes. Performed By: [facility] [address] [place] [address] Radiology Orderly: Cal Hopkins MD, PhD CLIA Number: [id number] Performed By: #### L [id number] ####[facility] ([facility] [place] [address] TROPONIN Ion 06-02-2024 Troponin I.cardiac [Mass/Vol] 0.02 ng/mL Normal 0.00-0.04 [facility] Comment on above: Performed By: #### L [id number] #### [facility] ([facility]) [address] [place] [address] Troponin I.cardiac [Mass/Vol] 0.01 ng/mL Normal 0.00-0.04 [facility] Comment on above: Performed By: #### L [id number] ####[facility] ([facility])[address] [place] [address] URINALYSIS WITH REFLEX CULTU REon 06-02-2024 BILIRUBIN, TOTAL PRESENCE IN URINE Negative Normal Negative [facility] Comment on above: Order Comment: Micro scopics not performed on urines with negative chemical reactions unless requested on original order. Performed By: #### L [id number] #### [facility] ([facility]) [address] [place] [address] Clarity (U) Slightly Cloudy Abnormal Clear [facility] Comment on above: Order Comment: Micro scopics not performed on urines with negative chemical reactions unless requested on original order. Performed By: #### L [id number] #### [facility] ([facility] [address] [place] [address] Color (U) Yellow Normal Yellow [facility] Comment on above: Order Comment: Micro scopics not performed on urines with negative chemical reactions unless requested on original order. Performed By: #### L [id number] #### [facility] ([facility]) [address] [place] [address] Glucose (U) [Mass/Vol] Negative Normal Negative [facility] Comment on above: Order Comment: Micro scopics not performed on urines with negative chemical reactions unless requested on original order. Performed By: #### L [id number] #### [facility] ([facility]) [address] [place] [address] HEMOGLOBIN PRESENCE IN URINE Negative Normal Negative [facility] Comment on above: Order Comment: Micro scopics not performed on urines with negative chemical reactions unless requested on original order. Performed By: #### L [id number] #### [facility] ([facility]) [address] [place] [address] Ketones Ql (U) Negative Normal Negative [facility] Comment on above: Order Comment: Micro scopics not performed on urines with negative chemical reactions unless requested on original order. Performed By: #### L [id number] #### [facility] ([facility]) [address] [place] [address] LEUKOCYTE ESTERASE PRESENCE IN URINE BY TEST STRIP Negative Normal Negative [facility] Comment on above: Order Comment: Micro scopics not performed on urines with negative chemical reactions unless requested on original order. Performed By: #### L [id number] #### [facility] ([facility]) [address] [place] [address] NITRITE PRESENCE IN URINE Negative Normal Negative [facility] Comment on above: Order Comment: Micro scopics not performed on urines with negative chemical reactions unless requested on original order. Performed By: #### L [id number] #### [facility] ([facility]) [address] [place] [address] pH (U) 6.0 [pH] Normal 5.0-8.0 [facility] Comment on above: Order Comment: Micro scopics not performed on urines with negative chemical reactions unless requested on original order. Performed By: #### L [id number] #### [facility] ([facility]) [address] [place] [address] Protein (U) [Mass/Vol] Negative Normal Negative [facility] Comment on above: Order Comment: Micro scopics not performed on urines with negative chemical reactions unless requested on original order. Performed By: #### L [id number] #### [facility] ([facility]) [address] [place] [address] Specific gravity (U) [Rel density] 1.010 Low 1.015-1.020 [facility] Comment on above: Order Comment: Micro scopics not performed on urines with negative chemical reactions unless requested on original order. Performed By: #### L [id number] #### [facility] ([facility]) [address] [place] [address] VITAMIN D 1,25 DIHYDROXYon 1 VITAMIN D 1,25-DIHYDROXY 10.4 pg/mL Low 19.9-79.3 [facility] Comment on above: Result Comment: INTE RPRETIVE INFORMATION: Vitamin D, 1,25- Dihydroxy This test is primarily indicated during patient evaluation for hypercalcemia and renal failure. A normal result does not rule out Vitamin D deficiency. The recommended test for diagnosing Vitamin D deficiency is Vitamin D 25-hydroxy. Performed By: [facility] [address] [place] [address] Radiology Orderly: Cal Hopkins MD, PhD CLIA Number: [id number] Performed By: #### L [id number] #### [facility] ([facility]) [address] [place] [address] VITAMIN D 25 HYDROXYon 06-02 CALCIDIOL (25 [place] VITAMIN D3) (NG/ML) IN SER/PLAS 16.2 ng/mL Low 30.0-80.0 [facility] Comment on above: Result Comment: >80. 0 Toxicity possible Performed By: #### L [id number] ####[facility] ([facility])[address] [place] [address] APTTon 06-01-2024 ACTIVATED PARTIAL THROMBOPLASTIN TIME IN PPP BY COAGULATION ASSAY 27.2 Seconds Normal 25.0-35.0 [facility] Comment on above: Result Comment: Clin ical significance of the APTT is questionable in the presence of heparin. Performed By: #### L [id number] #### [facility] ([facility]) [address] [place] [address] B-TYPE NATRIURETIC PEPTIDEon 06-01-2024 Natriuretic peptide B (Bld) [Mass/Vol] 73 pg/mL Normal 0-100 [facility] Comment on above: Performed By: #### L [id number] ####[facility] ([facility])[address] [place] [address] CBC WITH AUTO DIFFERENTIALon 06-01-2024 Basophils (Bld) [#/Vol] 0.05 10*3/uL Normal 0.00-0.20 [facility] Comment on above: Performed By: #### L [id number] ####[facility] ([facility])[address] [place] [address] Basophils/100 WBC (Bld) 0.2 % Normal 0.0-1.0 [facility] Comment on above: Performed By: #### L [id number] ####[facility] ([facility])[address] [place] [address] Eosinophils (Bld) [#/Vol] 0.35 10*3/uL Normal 0.00-0.50 [facility] Comment on above: Performed By: #### L [id number] ####[facility] ([facility])[address] [place] [address] Eosinophils/100 WBC (Bld) 1.5 % Normal 0.0-6.0 [facility] Comment on above: Performed By: #### L [id number] ####[facility] ([facility])[address] [place] [address] Erythrocyte distribution width (RBC) [Ratio] 14.0 % Normal 11.5-15.0 [facility] Comment on above: Performed By: #### L [id number] ####[facility] ([facility])[address] [place] [address] ERYTHROCYTE MEAN CORPUSCULAR HEMOGLOBIN CONCENTRATION (G/DL) BY AUTOMATED 31.4 g/dL Low 32.0-35.0 [facility] Comment on above: Performed By: #### L [id number] ####[facility] ([facility])[address] [place] [address] Hematocrit (Bld) [Volume fraction] 43.9 % Normal 39.0-55.0 [facility] Comment on above: Performed By: #### L [id number] ####[facility] ([facility])[address] [place] [address] Hemoglobin (Bld) [Mass/Vol] 13.8 g/dL Normal 13.0-17.0 [facility] Comment on above: Performed By: #### L [id number] ####[facility] ([facility])[address] [place] [address] Immature granulocytes (Bld) [#/Vol] 0.15 10*3/uL Normal 0.00-0.20 [facility] Comment on above: Performed By: #### L [id number] ####[facility] ([facility])[address] [place] [address] Immature granulocytes/100 WBC (Bld) 0.6 % Normal 0.0-1.0 [facility] Comment on above: Performed By: #### L [id number] ####[facility] ([facility])[address] [place] [address] Lymphocytes (Bld) [#/Vol] 0.83 10*3/uL Low 1.20-4.00 [facility] Comment on above: Performed By: #### L [id number] ####[facility] ([facility])[address] [place] [address] Lymphocytes/100 WBC (Bld) 3.5 % Low 20.0-45.0 [facility] Comment on above: Performed By: #### L [id number] ####[facility] ([facility])[address] [place] [address] MCH (RBC) [Entitic mass] 29.2 pg Normal 27.0-33.0 [facility] Comment on above: Performed By: #### L [id number] ####[facility] ([facility])[address] [place] [address] MCV (RBC) [Entitic vol] 93.0 fL Normal 82.0-98.0 [facility] Comment on above: Performed By: #### L [id number] ####[facility] ([facility])[address] [place] [address] Monocytes (Bld) [#/Vol] 1.36 10*3/uL High 0.10-1.00 [facility] Comment on above: Performed By: #### L [id number] ####[facility] ([facility])[address] [place] [address] Monocytes/100 WBC (Bld) 5.7 % Normal 5.0-12.0 [facility] Comment on above: Performed By: #### L [id number] ####[facility] ([facility])[address] [place] [address] Neutrophils (Bld) [#/Vol] 21.11 10*3/uL High 1.60-7.60 [facility] Comment on above: Performed By: #### L [id number] ####[facility] ([facility])[address] [place], [place] [address] Neutrophils/100 WBC (Bld) 88.5 % High 40.0-72.0 [facility] Comment on above: Performed By: #### L [id number] ####[facility] ([facility] [place] [address] NRBC (PER 100 WBCS) BY AUTOMATED COUNT 0.0 % Normal 0 [facility] Comment on above: Performed By: #### L [id number] ####[facility] ([facility])[address] [place] [address] PLATELETS (10*3/UL) IN BLOOD AUTOMATED COUNT 270 10*3/uL Normal 150-400 [facility] Comment on above: Performed By: #### L [id number] ####[facility] ([facility])[address] [place] [address] RBC (Bld) [#/Vol] 4.72 10*6/uL Normal 4.20-5.70 [facility] Comment on above: Performed By: #### L [id number] ####[facility] ([facility])[address] [place] [address] WBC (Bld) [#/Vol] 23.85 10*3/uL High 4.00-10.60 [facility] Comment on above: Performed By: #### L [id number] ####[facility] ([facility])[address] [place] [address] COMPREHENSIVE METABOLIC PANE Junaid 06-01-2024 Albumin [Mass/Vol] 2.9 g/dL Low 3.5-5.7 [facility] Comment on above: Performed By: #### L [id number] ####[facility] ([facility])[address] [place] [address] ALP [Catalytic activity/Vol] 218 U/L High 34-104 [facility] Comment on above: Performed By: #### L [id number] ####[facility] ([facility])[address] [place] [address] ALT [Catalytic activity/Vol] 54 U/L High 7-52 [facility] Comment on above: Performed By: #### L [id number] ####[facility] ([facility])[address] [place] [address] Anion gap [Moles/Vol] 13 mmol/L Normal 7-20 [facility] Comment on above: Performed By: #### L [id number] ####[facility] ([facility])[address] [place] [address] AST [Catalytic activity/Vol] 70 U/L High 13-39 [facility] Comment on above: Performed By: #### L [id number] ####[facility] ([facility])[address] [place] [address] Bilirubin [Mass/Vol] 0.7 mg/dL Normal 0.3-1.0 [facility] Comment on above: Performed By: #### L [id number] ####[facility] ([facility])[address] [place] [address] Calcium [Mass/Vol] 12.1 mg/dL Critically high 8.6-10.3 [facility] Comment on above: Performed By: #### L [id number] ####[facility] ([facility])[address] [place] [address] Chloride [Moles/Vol] 95 mmol/L Low 98-107 [facility] Comment on above: Performed By: #### L [id number] ####[facility] ([facility])[address] [place] [address] CO2 [Moles/Vol] 28 mmol/L Normal 21-31 [facility] Comment on above: Performed By: #### L [id number] ####[facility] ([facility])[address] [place] [address] Creatinine [Mass/Vol] 0.96 mg/dL Normal 0.70-1.30 [facility] Comment on above: Performed By: #### L [id number] ####[facility] ([facility])[address] [place] [address] GLOMERULAR FILTRATION RATE ML/MIN/1.73 SQ M.PREDICTED 92.8 mL/min/1.73m*2 Normal >60.0 [facility] Comment on above: Result Comment: The [facility]???s estimated glomerular filtration rate (eGFR) will no longer include consideration of race in its calculation. The National Kidney Foundation???s eGFR Task Force developed new recommendations for the estimation of the glomerular filtration rate in the [place] They recommend immediate implementation of the new equation refit without the race variable in all laboratories because the calculation does not include race. In addition to not including race in the calculation and reporting, it included diversity in its development, and has acceptable performance characteristics and potential consequences that do not disproportionately affect any one group of individuals. Performed By: #### L [id number] ####[facility] ([facility])[address] [place] [address] Glucose [Mass/Vol] 65 mg/dL Low 70-100 [facility] Comment on above: Performed By: #### L [id number] ####[facility] ([facility])[address] [place] [address] Potassium [Moles/Vol] 3.7 mmol/L Normal 3.5-5.1 [facility] Comment on above: Performed By: #### L [id number] ####[facility] ([facility])[address] [place] [address] Protein [Mass/Vol] 7.4 g/dL Normal 6.0-8.3 [facility] Comment on above: Performed By: #### L [id number] ####[facility] ([facility])[address] [place] [address] Sodium [Moles/Vol] 132 mmol/L Low 136-145 [facility] Comment on above: Performed By: #### L [id number] ####[facility] ([facility])[address] [place] [address] Urea nitrogen [Mass/Vol] 26 mg/dL High 7-25 [facility] Comment on above: Performed By: #### L [id number] ####[facility] ([facility])[address] [place] [address] UREA NITROGEN/CREATININ E (MASS RATIO) IN SER/PLAS 27.1 Normal [facility] Comment on above: Performed By: #### L [id number] ####[facility] ([facility])[address] [place] [address] LACTIC ACID WITH 4 HOUR REFL EXon 06-01-2024 LACTATE (MMOL/L) IN SER/PLAS 2.4 mmol/L High 0.5-2.2 [facility] Comment on above: Performed By: #### L [id number] ####[facility] ([facility])[address] [place] [address] MAGNESIUMon 06-01-2024 Magnesium [Mass/Vol] 1.9 mg/dL Normal 1.9-2.7 [facility] Comment on above: Performed By: #### L [id number] ####[facility] ([facility])[address] [place] [address] NURSNOTEon 06-01-[address] Curry, hem/onc, concerning direct admit for patient and if appropriate for medsurg. Dr. Curry states calcium of 12.4 is ok for patient to be admitted to med surg, IV fluids will help with correction. No need for emergent orders and higher level of care concerning calcium until it is 13.5. Normal [facility] PROTIME-INRon 06-01-2024 INR IN PPP BY COAGULATION ASSAY 1.06 Normal 0.90-1.10 [facility] Comment on above: Result Comment: ACCC P RECOMMENDED INR FOR WARFARIN THERAPY CONDITION INR PROPHYLAXIS OF VENOUS THROMBOSIS 2-3 (HIGH-RISK SURGERY) TREATMENT OF VENOUS THROMBOSIS 2-3 TREATMENT OF PULMONARY EMBOLISM 2-3 PREVENTION OF SYSTEMIC EMBOLISM: 2-3 ACUTE MYOCARDIAL INFARCTION TISSUE HEART VALVES VALVULAR HEART DISEASE ATRIAL FIBRILLATION RECURRENT SYSTEMIC EMBOLISM MECHANICAL HEART VALVE 2.5-3.5 FROM: ORAL ANTICOAGULANTS. MECHANISM OF ACTION, CLINICAL EFFECTIVENESS, AND OPTIMAL THERAPEUTIC RANGE. CHEST 1995;108:231S-246S. Performed By: #### L [id number] #### [facility] ([employer]) [address] [place] [address] PROTHROMBIN TIME (PT) IN PPP BY COAGULATION ASSAY 13.8 Seconds Normal 12.3-14.8 [facility] Comment on above: Performed By: #### L [id number] #### [facility] ([facility]) [address] [place] [address] TROPONIN Ion 06-01-2024 Troponin I.cardiac [Mass/Vol] 0.02 ng/mL Normal 0.00-0.04 [facility] Comment on above: Performed By: #### L [id number] ####[facility] ([facility])[address] [place] [address] Orders Onlyon 05-31-2024 Orders Only [id number] Kristen Smith 1965 M Date Provider Department Center 05/31/2024 DUGLAS AGGARWAL ONC DCC No family history on file Normal [facility] Orders Onlyon 05-30-2024 Orders Only [id number] Kristen Smith 1965 M Date Provider Department Center 05/30/2024 DUGLAS AGGARWAL ONC DCC No family history on file Normal [facility] Non-Shingle Weaver Cytologyon Case No: [id number] Normal [facility] Comment on above: Performed By: #### N SHUTTLE SPOTTER #### [facility] [address] [place] [address] Rocket Motor Mechanic: Aleks Kaur DO [address] [address] Rocket Motor Mechanic: Baldo Alberts MD Specimen Description SREQ:FLUIDX1 Normal [facility] Comment on above: Performed By: #### N SHUTTLE SPOTTER #### [facility] [address] [place] [address] Rocket Motor Mechanic: Aleks Kaur DO [employer] [address] [place] [address] Rocket Motor Mechanic: Baldo Alberts MD Specimen Description SREQ:FLUIDX1 Normal [facility] Comment on above: Performed By: #### N SHUTTLE SPOTTER #### [facility] [address] [place] [address] Rocket Motor Mechanic: Aleks Kaur DO [employer] [address] [place] [address] Rocket Motor Mechanic: Baldo Alberts MD Surgical Pathology Reporton 05-25-2024 Surgical Pathology Report (NOTE) [id number] [facility] CON[facility] PATHOLOGISTS [facility] ANATOMIC PATHOLOGY [address] [place] [address]. [place], [place] [id number] SURGICAL PATHOLOGY CONSULTATION Patient Name: KRISTEN SMITH MR#: [id number] Specimen #[id number] Procedures/Addenda ADDENDUM Date Ordered: 06/06/2024 Status: Signed Out Date Complete: 06/06/2024 By: Jose Castro M.D. Date Reported: 06/06/2024 ADDENDUM DIAGNOSIS AT THE REQUEST DR. ROBERT JACKSON, BLOCK A1 WAS SENT TO [facility] FOR [place] [address] TISSUENEXT TESTING. THE RESULTS ARE FOLLOWS: PD-L1 22C3 IMMUNOHISTOCHEMISTRY: TPS: 99% PLEASE SEE [facility]'S COMPLETE REPORT ([id number]) FOR DETAILS. Jose Castro M.D. MOLECULAR PATHOLOGY REPORT Date Ordered: 06/29/2024 Status: Signed Out Date Complete: 06/29/2024 By: Sandra Feliciano M.D. Date Reported: 06/29/2024 INTERPRETATION AT THE REQUEST OF DR. CARMEN MONTIEL, SLIDES AND BLOCKS FOR THIS CASE WERE RETRIEVED FROM ARCHIVES AND REVIEWED FOR MOLECULAR TESTING. BLOCK A1 WAS SELECTED AND FORWARDED TO [facility]. PLEASE SEE [facility]'S COMPLETE REPORT ([id number]) FOR DETAILS. Sandra Feliciano M.D. Final Diagnosis A. RIGHT MAINSTEM BRONCHUS, BIOPSY: Squamous cell carcinoma. See comment. Diagnosis Comment Slides are reviewed by a second pathologist who concurs with the diagnosis ([facility]). Sandra Feliciano, Electronically Signed Out kmg2/05/26/2024 Clinical Information Pre-Op Diagnosis: HILAR ADENOPATHY Operative Findings: RIGHT MAINSTEM MASS Operation Performed: BRONCHOSCOPY ENDOBRONCHIAL ULTRASOUND WITH BIOPSY kb Source: A: RIGHT MAINSTEM MASS Gross Description KRISTEN SMITH, RIGHT MAINSTEM MASS Received in formalin are multiple desouza-espino fragments from 0.2 to 0.6 cm and are 2.2 x 0.6 x 0.2 cm in aggregate. Wrapped, entirely 1cs. jj tm Microscopic Description Microscopic examination performed. Immunostains were performed with appropriate controls on block A1. Neoplastic cells are positive for p40 and negative for TTF-1. Normal [facility] Surgical Pathology Reporton 05-24-2024 Surgical Pathology Report (NOTE) Path Number: [id number] INTERPRETATION STATION 7 FINE NEEDLE ASPIRATION: POSITIVE FOR MALIGNANCY. Squamous cell carcinoma. CENTRAL AIRWAY BRONCHIAL WASHINGS: POSITIVE FOR MALIGNANCY. Squamous cell carcinoma. Electronically Signed Out Sandra Feliciano M.D. kmg2/05/29/2024 Comment See corresponding biopsy, [id number]. Source of Specimen: A: STATION 7 FINE [...] MD. MICROSCOPIC DESCRIPTION Microscopic examination performed. Non Shingle Weaver Thin Prep x 1, Diff Quik Slide x 3, Cell Block w/ SHANTEL x 1 Non Shingle Weaver Thin Prep x 1, Cell Block w/ SHANTEL x 1 Processing Lab: [address] [address] Interpretation performed at [address] [address] NONGYNECOLOGICAL CYTOPATHOLOGY CONSULTATION Patient Name: KRISTEN SMITH [facility] Rec: [id number] [facility] ANATOMIC PATHOLOGY [address] [place] [address]. [address] Normal [facility] XR SHOULDER RT MIN 2 VWSon 0 [...] Rod MD on 01/25/2024 6:47 PM Normal [facility] Encounters Encounter Date Encounter Type Care Provider Facility Start: 06-30-2024 End: 06-30-2024 ambulatory [facility] Start: 06-30-2024 End: 06-30-2024 Evaluation and management of inpatient [facility] Start: 06-27-2024 End: 06-27-2024 Patient encounter procedure [facility] Pre-Admission Testing 1 [facility] - Pre Admit Start: 06-26-2024 ambulatory ROBEL HERRING [facility] Start: 06-20-2024 End: 06-22-2024 ambulatory [facility] Start: 06-08-2024 End: 06-12-2024 ambulatory [facility] Start: 06-06-2024 Evaluation and management of inpatient MICHELLE EVANS [facility] Start: 06-06-2024 Evaluation and management of inpatient MICHELLE EVANS [facility] Start: 06-06-2024 [facility] Start: 06-06-2024 [facility]: 06-05-[facility] Evaluation and management of inpatient [facility] Start: 06-03-2024 Evaluation and management of inpatient SCHAFFER [facility] Start: 06-02-2024 Evaluation and management of inpatient SCHAFFER [facility] Start: 06-02-2024 Evaluation and management of inpatient SARBJIT JOHNSON [facility] Start: 06-02-2024 Evaluation and management of inpatient SARBJIT JOHNSON [facility] Start: 06-01-2024 End: 06-07-2024 Evaluation and management of inpatient RUFINA BEARD [facility] Start: 05-25-2024 End: 05-25-2024 ambulatory LISA Honey [facility] Start: 05-21-2024 ambulatory NO PCP NO PCP [facility] Start: 01-25-2024 End: 01-26-2024 Emergency department patient visit GAYLA HSIEH [facility] Procedures Date Procedure Procedure Detail Performing Clinician Start: 08-06-2022 Colonoscopy Pm 1 Plan of Treatment Date Care Activity Detail Author Start: 08-06-2027 Screening for malign ant neoplasm of colon Colonoscopy [facility] Start: 06-26-2025 Tobacco Screening Tobacco Screening [facility] Start: 06-30-2024 End: 06-30-2024 Admission to same day surgery center 06/30/2024 11:00 AM EDT - 06/30/2024 12:00 PM EDT Surgery [facility] [address] [place] [address] Apoorva Romano MD [address], [address] [address] INSERTION PORT A CATH-CHEMO MEDI PORT [99206 (CPT )] [facility] Comment on above: INSERTION PORT A CAT H-CHEMO MEDI PORT [21755 (CPT )] Start: 06-30-2024 End: 06-30-2024 Anesthesia consultation 06/30/2024 11:00 AM EDT Anesthesia Event [facility] [address] [place] [id number] Elmer Lopez, DO [address] 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, right ([facility]) 06/30/2024 11:00 AM EDT [facility] Start: 06-30-2024 Subsequent hospital visit by physician 06/30/2024 11:00 AM EDT Hospital Encounter [facility] [address] [place] [place] [address] Apoorva Romano MD [address], [address] [address] [facility] Start: 04-30-2024 Influenza vaccination Influenza Vacc ine [facility] Start: 08-06-2023 Adult BMI Screening Adult BMI Screen ing [facility] Start: 02-15-2021 COVID-19 Vaccine (3 - Pfizer risk series) COVID-19 Vaccine (3 - Pfizer risk series) [facility] Start: 1986 Administration of varicella zoster vaccine Zoster (Shingles) Vaccine (1 of 2) [facility] Start: 1986 DTaP,Tdap and Td Vac cines (1 - Tdap) DTaP,Tdap and Td Vaccines (1 - Tdap) [facility] Start: 1979 [facility] Tobacco Counseling Tobacco Counselin g [facility] Payers Date Payer Category Payer Unknown [id number] 2022 Medicaid [id number] 2022 Medicaid [id number] 2021 Unknown [id number] 1965 Unknown [id number] 2.16.8 [id number] 1967 Unknown [id number] 2.16.8 [id number] 1967 Unknown [id number] 2.16.8 [id number] 1967 Unknown [id number] 2.16.8 [id number] 1967 Unknown [id number] 2.16.8 [id number] 1967 Unknown [id number] 2.16.8 [id number] 1967 Unknown [id number] 2.16.8 [id number] 1967 Unknown [id number] 2.16.8 [id number] Social History Date Type Detail Facility Start: 07-05-2022 Tobacco smoking stat RUSTIS Smokes tobacco daily [facility] History of tobacco use Cigarette Smoker P [facility] Start: 07-05-2022 Tobacco use and exposure Smokeless tobacco non-user [facility] Start: 06-26-2024 Alcoholic beverage intake Current drinker of alcohol (finding) [facility] Start: 02-08-2019 End: 06-26-2024 History of Social function [facility] Start: 02-08-2019 End: 06-26-2024 Tobacco use panel [facility] Childcare Unknown [facility] Start: 07-13-2022 Alcohol Comment 12 a month in summer [facility] Start: 1965 Sex assigned at Not on file [facility] Start: 04-04-2015 Sex Male (finding) [facility] Clinical Notes 06-01-2024 to 06-27-2024 Perioperative Nursing Note - Rosa Bonner RN - 06/27/2024 2:15 PM EDTPerioperative Nursing Note - Rosa Bonner RN - 06/27/2024 2:15 PM EDT Note Date & Type Note Facility 06-27-2024 Miscellaneous Notes Left patient a return voicemail to review information and instructions for his procedure this Wednesday06/30/24. documented in this encounter [facility] 06-27-2024 Nurse Note Left patient a return voicemail to review information and instructions for his procedure this Wednesday06/30/24. [facility] 06-08-2024 Note PHYSICIAN CLINICAL T REATMENT PLANNING NOTE Identification: Kristen Smith is a 58 y.o. male with No matching staging information was found for the patient. Kristen has agreed to proceed with Radiation Therapy. The following represents the clinical treatment plan after I considered the patient???s clinical history, exam findings and relevant testing. Tests and supporting medical records were also reviewed to define the tumor location and extent of disease. Patient has not previously received radiation therapy. Patient does not have a pacemaker. ? N/A Radiation Therapy Planning Treatment Site 1 Treatment intent Palliative Line of treatment Adjuvant Treatment site Right Shoulder Technique 3D BOILER CONTROL TECHNICIAN Prescribed fraction dose 400 cGy Prescribed total dose 2000 cGy Prescribed number of fractions 5 Frequency Every 1 day Energy MV Patient position Supine, head first Immobilization Cradle Treatment Site 2 Treatment site Right Hip Technique 3D BOILER CONTROL TECHNICIAN Prescribed fraction dose 400 cGy Prescribed total dose 2000 cGy Prescribed number of fractions 5 Frequency Every 1 day Energy MV Patient position Supine, head first Immobilization Cradle I am ordering CT guidance for placement of XRT feng Yes Scan area: shoulder and hip Isocenters: tentative isocenter Slice thickness: 3mm [facility] Scan requested: No Simulation will be performed on CT Scanner to accomplish a reproducible treatment position, to determine optimal beam arrangements and to .design beam modifying devices and immobilization devices: Alphacradle. Verification Sim (films Day1): Yes Ongoing images: A daily orthogonal film pair. Image fusion requested: will not be performed A 4D CT is not necessary. Additional comments: [facility] 06-07-2024 Note Elara and Caret[facility] s have declined the referral. New referral sent to [facility]. 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 male who came from [facility] with past medical history including, but not limited to longstanding tobacco use (35+ years, currently 1-1.5 PPD), lump in neck, lesion on bone, right shoulder pain, and smoker's cough. Patient had presented to [facility] ED earlier today as instructed by his oncologist with primary complaint of generalized weakness. Patient recently diagnosed with lung cancer however has not yet started any treatment. He had reported he was feeling weak and that he fell and injured right shoulder. Patient reportedly having ongoing issues with right shoulder however no other injuries were sustained and patient denied hitting his head. [place] ED course found patient to be hypercalcemic with a large amount of erosion of the proximal humerus. In collaboration with patient's oncologist, patient was given IV pamidronate as well as IV fluids while at [facility] and then arranged for transfer here to [facility]. XR chest showed right paratracheal fullness likely charter representative of lymphadenopathy which had been previously seen on prior CT. No new focal parenchymal infiltrates. XR right shoulder exhibits lytic destructive soft tissue mass of the proximal humerus that has significantly progressed from previous exam. No definite acute fracture. ECG had shown sinus rhythm with PVCs. Referring facility laboratory workup showed leukocytosis with WBC 22.3, TONI with BUN 27.0, creatinine 1.29, hyponatremia with sodium of 128, patient likely dehydrated due to poor oral intake. Patient also hypercalcemic with calcium 12.4. LFTs also elevated. Patient also exhibits malnutrition AEB albumin 1.9 and borderline total protein of 6.8. Upon my assessment, patient is sitting upright at edge of bed and is A/OX4. Patient reports he just received diagnosis of lung cancer yesterday and that he is still trying to wrap his head around what to expect and what is up next. Review of systems predominantly unremarkable with exception of patient reported significant weight loss over the past few months of around 40 pounds. Patient reports absence of appetite and that he is not eating and therefore also having very minimal to no bowel movements. Patient denies any vomiting, constipation, or diarrhea however does endorse intermittent nausea. Patient states he cannot tolerate much oral intake other than milk and some juices. He reports he had tried nutrition shakes/protein shakes and they were to retch and ended up being thrown up. Patient at present, does not appear to be in any immediate distress however does appear emaciated as noted above. Respirations are regular, even, and unlabored with no accessory muscle use however lung sounds are clear/diminished throughout. Obvious deformity of right shoulder noted with limited ROM due to pain and discomfort. Patient states right shoulder/arm issue has been ongoing for weeks to months. Patient also noted to have unstageable pressure injury to sacral/coccygeal area, wound care to be consulted. Updated laboratory workup ordered and pending, XR chest ordered and pending. Baseline ECG ordered and pending. Patient admitted here to [facility] for further evaluation and treatment of lung cancer with metastasis to right proximal humerus, lesion to right arm, generalized weakness,hypercalcemia, and pending initiation of chemotherapy. Surgical, Invasive or Diagnostic Procedures Done During Admission: None Consultations During Admission: Hematology/Oncology and Orthopedics # Recently diagnosed stage IV squamous cell carcinoma of the lung, mets to right humerus and femur: # Metastatic proximal humerus lesion: - CT neck/lung per [facility] cancer center at [place] exhibits severe emphysema, marked left supraclavicular and mediastinal/hilar lymphadenopathy. - Received first cycle of carboplatin+paclitaxel on 06/03/2024. Patient will receive pembrolizumab outpatient. - Patient will receive 10 sessions radiation to his right humerus. - Ortho recommended no intervention and follow up outpatient. # Hypercalcemia due to malignancy, improved: - Presented with Ca 12.1. - PTH is suppressed. PTHrP is negative. # Acute DVT of left lower extremity: - Discharged on Lovenox 50 mg bid for 90 days. # HypoNa, mild. # Chronic normocytic anemia. # Severe PCM due to malignancy: - Discharged on Marinol. # Unstageable (more content not included)... [facility] 06-07-2024 Note Millwright went bedside with SW to talk to patient in regards of HHC for wound care. Patient asked if OTM could just reach out to his about wether to set up HHC or not. SW to call about setting up HHC or not. [facility] 06-07-2024 Note Met with the patient regarding home health care for wound care. He asked that we reach out to his regarding home health care to be arranged or not. Patient's is agreeable to home health care and is ok with any agency that goes to their area and is in network. Sent a few referrals. [facility] 06-07-2024 Note Physical Therapy Name: Kristen Smith Date of : 1965 Today's Date: 06/07/24 Pt is unable to be seen for therapy at this time secondary to pt deferred. Pt states I'm in rough shape today. Pt states he has performed his HEP program once today already and has ambulated the hallways. States he is sore and his muscles are tight. Offered pt stretches, to which pt reports he already has a list of stretches to perform . Will check back and complete therapy session as appropriate. Check No Charge Time attempted: 1324 Agnieszka Fisher, PT [facility] 06-07-2024 Note Met with the patient and family per their request earlier today. They were requesting information to help to get a go fund me program started for him. They were asking for a list of his diagnosis and rate statistics. Let me them know that this information could not be provided by proposal lead writer. Spoke about accessing his information through My Chart or reaching out to Medical Records for information. Spoke with his nurse casemanager about transportation to his radiation treatments. He does have the option of using transport through his insurance phone number . He would just need to call 48 hours prior to his appointment or he can call same number and request reimbursement for gas if chooses to drive to his appointments. Patient reached out to his casemanager for assistance with his utility bills. His bills are around $10,000 and his insurance company is not able to assist with this cost. His insurance casemanager also discussed calling 211 with him and patient stated he had already reached out to them. [facility] 06-07-2024 Note Received ambulatory referral for transportation to radiation appointments. Notified [facility] staff re: possible opportunity to use [place] Medicaid medical cab or gas mileage reimbursement, however, deferring to inpatient social work/case management staff as the patient is currently admitted to [facility]. [facility] 06-07-2024 Note Attestation signed by Luisana Currie MD at 06/07/2024 6:00 PM By using the attestations below, the signing clinician agrees that I have read and verify that the documentation has been personally reviewed by me and ensure that the documentation accurately reflects the encounter. As noted by Dr Marci WOODARD: I personally saw this patient on the day of the encounter, performed the osorio portion(s) of the service and participated in the management and confirm the resident's documentation. Please note there may be an additional personal documentation from me. Additional Comments: Follow up counts for supportive care neupogen if heed and follow up with primary Onc Dr Calvillo. Patient unfortunately has some social issues including evidtion notice and our gracious hospitalist and social service are working with him Questions answered and eliquis at discharge Luisana Currie MD INPATIENT HEMATOLOGY / ONCOLOGY PROGRESS NOTE Inpatient Hematology Oncology Fellow availability Wednesday - 830am-500pm and Wednesday 830am-430pm. (During these hours, please contact Hematology Oncology Fellow through [employer] Chat first.) For Hematology Oncology needs on weekends and after hours, please page the on-call physician through the hospital thiokol operator. Patient ID: Kristen Smith, 58 y.o. male Requested by: Rufina Beard MD PCP: Suzanne Roberson CNP : 1965 Interval Events / Subjective: Patient is still complaining of mild right shoulder pain of severity 2/10 but states his breathing is stable. He has no acute complaints. He denies any chest pain, shortness of breath, nausea vomiting or diarrhea. Assessment: / Plan Kristen Smith is a 58-year-old man who is recently diagnosed with metastatic squamous cell carcinoma of the lung. He is admitted to [facility] for initiation of carboplatin paclitaxel and medical optimization. 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 Hypercalcemia of malignancy, patient received IV bisphosphonate prior to [facility] transfer and calcium is improved Chronic normocytic anemia Low vitamin D Anorexia Frailty 35+ pack year current smoker Plan: Discussed PD-L1/TPS score with outpatient oncologist, he will likely proceed with pembrolizumab monotherapy rather than further chemotherapy cycles. This will be decided at outpatient appointment next week. Continue anticoagulation for DVT in the setting of malignancy, outpatient oncologist will manage after discharge If surgery not recommended, radiation oncology suggesting 10 treatments of palliative radiation to right femur and right humerus. He will have an appointment in [place] with Dr. Montiel on 06/13 at 1pm Patient will need twice weekly CBCs to monitor for cytopenias after discharge, he did not meet criteria for Neulasta at this time. Scar Covarrubias MD PGY 1 Internal Medicine [facility] Thiago Lala MD Hematology/Oncology Fellow PGY-4 [facility] Epic chat preferred ASCOM: [id number] - I have reviewed the patient's hematologic/oncologic course to date, including reports, labs, imaging, and diet consultant notes. - NCCN Guidelines were reviewed when appropriate and discussed with the patient. - I discussed the diagnosis, risks, and goals of therapy with the patient and answered all of the patient's questions. - I personally saw the patient, performed the H&PE, and formulated the assessment and plan. I also discussed the assessment and plan with the attending physician. - Formal addendum/attestation from attending to follow. Thiago Lala MD Hematology/Oncology Fellow PGY-4 [facility] Epic chat preferred Oncologic Hx: Oncology History Squamous cell carcinoma of lung, stage IV, right (CMS/HCC) 05/31/2024 Initial Diagnosis Squamous cell carcinoma of lung, stage IV, right (CMS/HCC) 06/03/2024 - Chemotherapy fosaprepitant (Emend) 150 mg in sodium chloride 250 mL IVPB, 150 mg, intravenous, Once, 1 of 4 cycles Administration: 150 mg (06/03/2024) CARBOplatin (Paraplatin) 485 mg in sodium chloride 0.9 % 298.5 mL IVPB, 485 mg (100 % of original dose 483.5 mg), intravenous, Once, 1 of 4 cycles Dose modification: (original dose 483.5 mg, Cycle 1, Reason: Other (See Comments), Comment: .) Administration: 495 mg (06/03/2024) palonosetron (Aloxi) injection 250 mcg, 250 mcg, intravenous, Once, 1 of 4 cycles Administration: 250 mcg (06/03/2024) PACLitaxe (more content not included)... [facility] 06-07-2024 Note SINCER[facility] PALLIATIVE C ARE PROGRESS NOTE ADVANCED DIRECTIVES: None SUBJECTIVE Patient is a 58 y.o. male seen in follow up today for ongoing goals of care and symptom management. Pt reports pain is well controlled. He rates it 3/10 today. He denies SOB and nausea. OBJECTIVE FINDINGS Vitals: 06/07/24 0945 BP: 100/70 Pulse: 88 Resp: 18 Temp: 36.4 ???C (97.5 ???F) SpO2: 99% Physical exam: Skin: No wounds visualized. Eyes: Sclera anicteric. No exudate. HENT: Oral mucosa pink and moist. No nasal exudate. Respiratory: Lungs CTA. Respirations unlabored. Cardiovascular: HRR. Bilateral 3+ LE edema. Gastrointestinal: BS+x4. Abd not distended. Musculoskeletal: Significant sarcopenia. No noted joint deformity. Neurologic: Alert and oriented. Speech is clear. No facial droop. Psychologic: Normal affect. No verbalized hallucination or delusions. ASSESSMENT/PLAN Metastatic lung cancer Encounter for palliative care Hypercalcemia Met with pt, his , and his niece at bedside. Pt's symptoms managed today. Briefly reviewed goals. He reports that he wants to continue aggressive treatment for his cancer. He wants to remain a full code. He reports he wants to complete [facility] paperwork naming his . Educated him that if he can't make his own healthcare decisions his becomes his legal decision maker. Despite this he still wants to complete the paperwork. Will consult the Adjunct Professor Of Voice to help facilitate this. His main concerns are still related to his poor living condition. His is on the phone with someone working on this. Pt also reports he still doesn't know what the definitive plan is for his cancer moving forward. We will continue to support and follow. [facility] 06-07-2024 Note Patient to see MD FORREST NOEL for immunotherapy; last dose jun 03. Next dose in 2 weeks, jun 23. [facility] 06-06-2024 Note Physical Therapy Physical Therapy Treatment Patient Name: Kristen Smith : 1965 Today's Date: 06/06/2024 Patient Active Problem List Diagnosis Squamous cell carcinoma of lung, stage IV, right (CMS/HCC) Metastatic squamous cell carcinoma to lung, right (CMS/HCC) Malignant neoplasm of bone of upper extremity, right (CMS/HCC) Generalized weakness Unspecified protein-calorie malnutrition (CMS/HCC) Pressure injury of coccygeal region, unstageable (CMS/HCC) Malignancy associated hypercalcemia Panlobular emphysema (CMS/HCC) Lymphadenopathy, mediastinal Leukocytosis Cancer related pain Nausea and vomiting Objective Upon arrival pt standing with RN near recliner, receiving meds. General Visit Information: PT Last Visit PT Received On: 06/06/24 Response to Previous Treatment: Patient with no complaints from previous session. General Family/Caregiver Present: No Subjective: pt agreeable to ther ex while seated/ pt defers amb & standing ther ex d/t reports of 7.5/10 muscle & joint pain. Activity Tolerance Activity Tolerance Ambulation comments: pt kindly defers Activity Tolerance Comments: pt erwin ther ex while in recliner Precautions Precautions UE Weight Bearing Status: Right (has sling) Pain Pain Assessment Pain Assessment: No/denies pain Cognition Cognition Overall Cognitive Status: Within Functional Limits Arousal/Alertness: Appropriate responses to stimuli Orientation Level: Oriented X4 General Assessment General Assessment Edema: bilat LE feet General Assessments: Activity Tolerance Ambulation comments: pt kindly defers Activity Tolerance Comments: pt erwin ther ex while in recliner Cognition Overall Cognitive Status: Within Functional Limits Arousal/Alertness: Appropriate responses to stimuli Orientation Level: Oriented X4 Treatment: Therapeutic Exercise Therapeutic Exercise Time Entry: 23 Therapeutic Exercise Activity 1: Bilat LE AROM @ 10 reps of: hip abd/add, heels slide, SLR, quad set, hamstring set, gluteal set, PF/DF, marches, LAQ while positioned in supine & seated Therapeutic Exercise Activity 2: UT, lev scap stretch & 15 seconds x 3 reps Therapeutic Exercise Activity 3: bilat hamstring & calf stretch Treatment Comments: After therapy seated in recliner, call light within pt reach Outcome Assessments 6 Clicks (Mobility) Help from another person turning from your back to your side while in a flat bed without using bedrails: None Help from another person moving from lying on your back to sitting on the side of a flat bed without using bedrails: None Help from another person moving to and from a bed to a chair (including a wheelchair): None Help from another person standing up from a chair using your arms (e.g. wheelchair or bedside chair): None Help from another person to walk in hospital room: A little Help from another person climbing 3-5 steps with a railing: A little Mobility 6 Clicks T-Score: 22 Assessment/Plan PT Assessment PT Assessment/LEAD HOUSEKEEPER Summary: pt erwin there ex while seated in recliner. Pt is very slow paced today requiring increased time during therapy. Pt treatment limited by pt pain/discomfort. PT Education/Comments: pt educated on ther ex technique Plan Level of assist: 1 assist PT Plan: Skilled PT PT Frequency: 5 times per week until discharge & PRN PT Discharge Recommendations: Home PT - Discharge Recommendations Placed: Yes Goals: Multi-Disciplinary Problems (from Physical Therapy) Active Problems Problem: PT Misc Start Date: 06/02/24 Goal Start Date Expected End Date End Date Stairs as needed to access home, independent 06/02/24 06/10/24 -- Goal Start Date Expected End Date End Date Patient will climb full flight of stairs in manner simulating home set up (lack of rails) 06/02/24 06/10/24 -- Goal Start Date Expected End Date End Date Pt to progress standing balance to allow return to prior level of functional activity, ADLs and tasks 06/02/24 06/10/24 -- Goal Start Date Expected End Date End Date Pt to demonstrate activity tolerance to perform 45 min session including gait and standing dynamic exercise to facilitate return to independent ADLs and tasks 06/02/24 06/10/24 -- Goal Start Date Expected End Date End Date Patient to demonstrate improved righting reactions and/or reduced dependence on assistive device through performing dynamic closed chain balance exercise 06/02/24 06/10/24 -- [facility] 06-06-2024 Note Hospital Medicine Daily Progress Note - 06/06/2024 3:42 PM; Room: [address] [place] [address] Admission: 06/01/2024 10:58 PM; Length of stay: 5 days THE HOSPITALIST TEAM PREFERS TO USE [employer] FOR NON-URGENT COMMUNICATION 7AM-7PM. IF I DO NOT RESPOND WITHIN 20 MINUTES OR URGENT MATTERS, PLEASE CALL THROUGH THE RACING MANAGER. FROM 7PM-7AM, PLEASE PAGE [phone](COVR). Code Status: Full Code Barriers to Discharge: CT simulation today Expected Discharge Date: Discharge Destination: home Overview Patient is seen for evaluation and management of new diagnosis of lung cancer and hypercalcemia. Subjective Patient denies SOB, N/V, abdominal pain. Physical Exam Visit Vitals BP 112/80 Pulse 80 Temp 36.2 ???C (97.2 ???F) Resp 20 Intake/Output Summary (Last 24 hours) at 06/06/2024 1542 Last data filed at 06/05/2024 2330 Gross per 24 hour Intake 360 ml Output -- Net 360 ml Physical Exam Constitutional: Appearance: He is cachectic. Cardiovascular: Rate and Rhythm: Normal rate and regular rhythm. Pulmonary: Effort: Pulmonary effort is normal. Breath sounds: Normal breath sounds. Abdominal: General: Abdomen is flat. Palpations: Abdomen is soft. Musculoskeletal: Right lower leg: Edema present. Left lower leg: Edema present. Neurological: General: No focal deficit present. Mental Status: He is alert and oriented to person, place, and time. Estimated body mass index is 16.51 kg/m??? as calculated from the following: Height as of this encounter: 1.778 m (5' 10 ). Weight as of this encounter: 52.2 kg (115 lb 1.3 oz). 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, right (CMS/HCC) Generalized weakness Unspecified protein-calorie malnutrition (CMS/HCC) Pressure injury of coccygeal region, unstageable (CMS/HCC) Malignancy associated hypercalcemia Panlobular emphysema (CMS/HCC) Lymphadenopathy, mediastinal Leukocytosis Cancer related pain Nausea and vomiting Assessment and Plan # Recently diagnosed stage IV squamous cell carcinoma of the lung, mets to right humerus and femur: - CT neck/lung per [facility] cancer center at [place] exhibits severe emphysema, marked left supraclavicular and mediastinal/hilar lymphadenopathy. - Received first cycle of carboplatin+paclitaxel on 06/03/2024. - Patient will go for CT simulation today for radiation. # Metastatic proximal humerus lesion: - Ortho ordered MRI. # Hypercalcemia due to malignancy, improved: - Presented with Ca 12.1. - PTH is suppressed. PTHrP is negative. # Acute DVT of left lower extremity: - Continue Lovenox 50 mg bid. # HypoNa, mild. # Chronic normocytic anemia. # Severe PCM due to malignancy. # Unstageable sacral pressure injury, present on admission: - Wound care. # Tobacco use: - Counseled. Nutrition Screen: Clinical Indicators of Malnutrition: poor appetite, wound healing needs, low BMI <18.5 if < 70 yrs old, unintentional weight loss, reduced energy intake, loss of subcutaneous fat with locations identified, loss of muscle mass with location identified Malnutrition Assessment (Completed by RD) Severe PCM: Chronic Illness: >7.5% weight loss in 3 months, severe loss of subcutaneous fat, severe muscle loss, <75% est. energy loss require >/ or equal to 1 month Treatment & Intervention Plan: textures per LINUX UNIX SYSTEM ADMINISTRATOR pending swallow study, RD to change supplement, encouraged protein intakes to optimize wound healing, vitamin/medication recommendations, recommend speech therapy consult, consider nutrition support if unable to meet nutrition needs as noted above Nutrition Goals: intake > 75% meals, intake > 75% supplements, intake > 75% snacks, wound healing, maitain visceral protein Malnutrition Attestation: I attest to the following: I have personally seen this patient. The patient has been assessed for malnutrition as documentation above, and based on the criteria set by the Academy of Nutrition and Dietetics and the [place] [employer] of Enteral and Parenteral Nutrition, meets the diagnosis for malnutrition. A care plan has been established for this patient. VTE Prophylaxis: Lovenox Scheduled Meds droNABinol, 2.5 mg, oral, BID AC enoxaparin, 1 mg/kg, subcutaneous, BID Enox oxyCODONE ER, 10 mg, oral, q12h MAICO sennosides-docusate sodium, 2 tablet, oral, BID sodium chloride, 10 mL, intravenous, q12h thiamine, 50 mg, oral, Daily Pertinent Investigations Hematology: Results from last 7 days Lab Units 06/06/24 0507 06/05/24 0541 06/02/24 1345 06/01/24 2328 WBC AUTO 10*3/uL 23.56* 30.44* < > 23.85* HEMOGLOBIN g/dL 11.9* 11.7* < > 13.8 HEMATOCRIT % 36.1* 35.7* < > 43.9 MCV fL 88.5 89.0 < > 93.0 PLATELETS AUTO 10*3/uL 185 209 < > 270 INR -- -- -- 1.06 < > = values in this in (more content not included)... [facility] 06-06-2024 Note [facility] Vascular and Wound Surgery DAILY PROGRESS NOTE Subjective Follow up unstageable sacral ulcer. Patient tolerating dressing changes. He reports changing positions frequently and utilizing donut pillow. No new concerns per nursing. Patient denies any fevers,chills, nausea, vomiting. Patient also noted to have left pop, PT, and peroneal DVT via venous duplex. He has been started on Lovenox BID per primary team. Has edema but denies any significant LE pain. Objective Vitals: Vitals: 06/06/24 0818 BP: 112/80 Pulse: 80 Resp: 20 Temp: 36.2 ???C (97.2 ???F) SpO2: 96% I/O last 3 completed shifts: In: 410 (7.9 mL/kg) [P.O.:360; I.V.:50 (1 mL/kg)] Out: - (0 mL/kg) Weight: 52.2 kg No intake/output data recorded. Physical Exam Physical Exam Constitutional: General: He is not in acute distress. Appearance: Normal appearance. He is not ill-appearing. Comments: cachexic HENT: Head: Normocephalic and atraumatic. Eyes: General: No scleral icterus. Pupils: Pupils are equal, round, and reactive to light. Cardiovascular: Rate and Rhythm: Normal rate and regular rhythm. Pulmonary: Effort: Pulmonary effort is normal. Musculoskeletal: Cervical back: Neck supple. Right lower leg: Edema (3+) present. Left lower leg: Edema (4+) present. Skin: General: Skin is warm and dry. Comments: Small unstageable sacral pressure ulcer with 100% slough. In close bone proximity but no bone exposure. No underlying fluctuance, bogginess, expressible purulence. No erythema, calor, induration to alexus-wound. Neurological: General: No focal deficit present. Mental Status: He is alert and oriented to person, place, and time. Psychiatric: Mood and Affect: Mood normal. Behavior: Behavior normal. Thought Content: Thought content normal. Judgment: Judgment normal. Labs: Results from last 7 days Lab Units 06/06/24 0507 06/05/24 0541 06/04/24 0517 06/03/24 1655 06/03/24 0509 WBC AUTO 10*3/uL 23.56* 30.44* 17.72* 19.18* 22.89* HEMOGLOBIN g/dL 11.9* 11.7* 11.1* 11.9* 12.3* HEMATOCRIT % 36.1* 35.7* 34.2* 37.0* 37.7* PLATELETS AUTO 10*3/uL 185 209 245 238 293 Results from last 7 days Lab Units 06/06/24 0507 06/06/24 0026 06/05/24 0541 06/04/24 0517 06/03/24 1655 SODIUM mmol/L 132* 131* 134* 132* 130* POTASSIUM mmol/L 3.7 3.5 3.5 4.2 4.3 CO2 mmol/L 26 26 23 24 24 BUN mg/dL 23 23 26* 25 17 CREATININE mg/dL 0.60* 0.68* 0.64* 0.74 0.68* Results from last 7 days Lab Units 06/01/24 2328 INR 1.06 Medications: droNABinol, 2.5 mg, oral, BID AC enoxaparin, 1 mg/kg, subcutaneous, BID Enox oxyCODONE ER, 10 mg, oral, q12h MAICO sennosides-docusate sodium, 2 tablet, oral, BID sodium chloride, 10 mL, intravenous, q12h thiamine, 50 mg, oral, Daily Imaging: ECG 12 lead Sinus rhythm with frequent Premature ventricular complexes Right axis deviation Borderline ECG When compared with ECG of 02-JUN-2024 08:42, Premature supraventricular complexes are no longer Present Confirmed by Russell Shannon ([id number]) on 06/06/2024 7:10:51 AM 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 Suspect will be stage III level after slough improves Topical tx: vashe soak, calcium alginate, border foam M,W,F and prn Gaymar overlay in place Instructed patient to change positions frequently to offloading ulcer He has protein supplements; dietitian is on board Will follow peripherally during inpatient stay Will follow up in wound clinic if he is discharged home If discharged to nursing facility, can follow wound care at facility #Left pop and PT, peroneal DVT, provoked secondary to malignancy Continue Lovenox BID Recommend leena khan Follow up in vascular clinic in 3 months with surveillance venous duplex prior to appointment. TYLER Silva Vascular/Wound Service Please direct primary wound calls to: [phone] Please direct primary vascular calls to: [phone] This note was created with the assistance of a speech-recognition program. While intending to generate a document that accurately reflects the content of the encounter, no guarantee can be provided that every mistake has been identified and corrected by editing ' [facility] 06-06-2024 Note Met with the patient and spoke about 211. He has already been actively calling around for assistance programs. [facility] 06-06-2024 Note Occupational Therapy Occupational Therapy Treatment Patient Name: Kristen Smith : 1965 Today's Date: 06/06/2024 06/06/24 1015 Time Calculation Start Time 1015 Stop Time 1030 Time Calculation (min) 15 min Problem List Patient Active Problem List Diagnosis Squamous cell carcinoma of lung, stage IV, right (CMS/HCC) Metastatic squamous cell carcinoma to lung, right (CMS/HCC) Malignant neoplasm of bone of upper extremity, right (CMS/HCC) Generalized weakness Unspecified protein-calorie malnutrition (CMS/HCC) Pressure injury of coccygeal region, unstageable (CMS/HCC) Malignancy associated hypercalcemia Panlobular emphysema (CMS/HCC) Lymphadenopathy, mediastinal Leukocytosis Cancer related pain Nausea and vomiting Treatment: 06/06/24 1015 OT Last Visit OT Received On 06/06/24 General Subjective Upon arrival, patient in bedside chair and report discomfort Family/Caregiver Present No Pain Assessment Pain Assessment 0-10 Pain Score 2 Pain Type Acute pain Pain Location Shoulder Cognition Overall Cognitive Status WFL Orientation Level Oriented X4 General Assessment Edema karly LE (feet) Hand Dominance Left Grooming Grooming Level of Assistance Setup Grooming Where Assessed Sitting in chair (unsupported) Grooming Comments hair grooming w/ LUE Functional Standing Tolerance Time ~4 minutes Activity proposal lead writer provided different chair, pt prefers new chair and stands up to transfer to it. Static Sitting Balance Static Sitting-Balance Support Right upper extremity supported;Left upper extremity supported;Feet supported Static Sitting-Level of Assistance Independent Dynamic Sitting Balance Dynamic Sitting-Balance Support No upper extremity supported;Feet supported Dynamic Sitting-Balance Forward lean;Reaching for objects;Reaching across midline;Trunk control activities Dynamic Sitting Balance-Level of Assistance Distant supervision Static Standing Balance Static Standing-Balance Support No upper extremity supported Static Standing-Level of Assistance Distant supervision Bed Mobility Bed Mobility No Transfers Transfer Yes Transfer 1 Transfer From 1 Sit Transfer Type 1 To and from Transfer to 1 Stand Technique 1 Sit to stand;Stand to sit Transfer Level of Assistance 1 Independent Other Activity Other Activity 1 Pt left in bedside chair with call light and needs accessible. OT Assessment OT Impairments Decreased ADL status OT Assessment/DATA PROCESSING OPERATOR Summary Pt would benefit from continued skilled therapy to educate on compensatory strategeies, adaptive techniques and equipment for aníbal care tasks. OT Education/Comments Activity promotion Plan Level of assist 1 assist Treatment Interventions ADL retraining;Functional transfer training;Endurance training;Patient/family training OT Plan Skilled OT OT Frequency 3 times per week until discharge & PRN OT Discharge Recommendations Home OT - Discharge Recommendations Placed Yes Outcome Assessments 06/06/24 1500 AM-PAC 6 Clicks Putting on and taking off regular lower body clothing? 3 Bathing(Including washing,rinsing,drying)? 3 Toileting, which includes using the toilet,bedpan,or urinal? 3 Putting on and taking off regular upper body clothing? 3 Taking care of personal grooming such as brushing teeth? 3 Eating meals? 4 Total Score OT [facility] 19 OT Goals: Multi-Disciplinary Problems (from Occupational Therapy) Active Problems Problem: Bathing Start Date: 06/02/24 Goal Start Date Expected End Date End Date LTG - Patient will utilize adaptive techniques to bathe body with modified independent 06/02/24 06/16/24 -- Problem: Dressings Lower Extremities Start Date: 06/02/24 Goal Start Date Expected End Date End Date LTG - Patient will utilize adaptive techniques/equipment to dress lower body with modified independent 06/02/24 06/16/24 -- Problem: Dressing Upper Extremities Start Date: 06/02/24 Goal Start Date Expected End Date End Date LTG - Patient will utilize adaptive techniques/equipment to dress upper body with modified independent 06/02/24 06/16/24 -- Problem: Grooming Start Date: 06/02/24 Goal Start Date Expected End Date End Date LTG - Patient will utilize adaptive techniques/equipment to complete daily grooming activities with modified independent 06/02/24 06/16/24 -- Problem: Toileting Start Date: 06/02/24 Goal Start Date Expected End Date End Date LTG - Patient will utilize adaptive techniques/equipment to complete daily toileting tasks with modified independent 06/02/24 06/16/24 -- [facility] 06-06-2024 Note Attestation signed by Luisana Currie MD at 06/06/2024 6:17 PM By using the attestations below, the signing clinician agrees that I have read and verify that the documentation has been personally reviewed by me and ensure that the documentation accurately reflects the encounter. As noted by Dr Spike WOODARD: I personally saw this patient on the day of the encounter, performed the osorio portion(s) of the service and participated in the management and confirm the resident's documentation. Please note there may be an additional personal documentation from me. Additional Comments: Left popliteal dvt on anticoagulation would need platelet arun Luisana Currie MD INPATIENT HEMATOLOGY / ONCOLOGY PROGRESS NOTE Inpatient Hematology Oncology Fellow availability Wednesday - 830am-500pm and Wednesday 830am-430pm. (During these hours, please contact Hematology Oncology Fellow through [employer] Chat first.) For Hematology Oncology needs on weekends and after hours, please page the on-call physician through the hospital thiokol operator. Patient ID: Kristen Smith, 58 y.o. male Requested by: Rufina Beard MD PCP: Suzanne Roberson CNP : 1965 Interval Events / Subjective: Patient is still complaining of mild right shoulder pain of severity 2/10 but states his breathing is stable. He has no acute complaints. Bowel movement yesterday after 4 days. He denies any chest pain, shortness of breath, nausea vomiting or diarrhea. Assessment: / Plan Kristen Smith is a 58-year-old man who is recently diagnosed with metastatic squamous cell carcinoma of the lung. He is admitted to [facility] for initiation of carboplatin paclitaxel and medical optimization. 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 Hypercalcemia of malignancy, patient received IV bisphosphonate prior to [facility] transfer and calcium is improved Chronic normocytic anemia Low vitamin D Anorexia Frailty 35+ pack year current smoker Plan: Discussed PD-L1/TPS score with outpatient oncologist, he will likely proceed with pembrolizumab monotherapy rather than further chemotherapy cycles. This will be decided at outpatient appointment next week. Continue anticoagulation for DVT in the setting of malignancy, outpatient oncologist will manage after discharge If surgery not recommended, radiation oncology suggesting 10 treatments of palliative radiation to right femur and right humerus. He will have an appointment in [place] with Dr. Montiel on 06/13 at 1pm Patient will need twice weekly CBCs to monitor for cytopenias after discharge, he did not meet criteria for Neulasta at this time. Scar Covarrubias MD PGY 1 Internal Medicine [facility] Thiago Lala MD Hematology/Oncology Fellow PGY-4 [facility] [employer] preferred ASCOM: [id number] - I have reviewed the patient's hematologic/oncologic course to date, including reports, labs, imaging, and diet consultant notes. - NCCN Guidelines were reviewed when appropriate and discussed with the patient. - I discussed the diagnosis, risks, and goals of therapy with the patient and answered all of the patient's questions. - I personally saw the patient, performed the H&PE, and formulated the assessment and plan. I also discussed the assessment and plan with the attending physician. - Formal addendum/attestation from attending to follow. Thiago Lala MD Hematology/Oncology Fellow PGY-4 [facility] [employer] preferred Oncologic Hx: Oncology History Squamous cell carcinoma of lung, stage IV, right (CMS/HCC) 05/31/2024 Initial Diagnosis Squamous cell carcinoma of lung, stage IV, right (CMS/HCC) 06/03/2024 - Chemotherapy fosaprepitant (Emend) 150 mg in sodium chloride 250 mL IVPB, 150 mg, intravenous, Once, 1 of 4 cycles Administration: 150 mg (06/03/2024) CARBOplatin (Paraplatin) 485 mg in sodium chloride 0.9 % 298.5 mL IVPB, 485 mg (100 % of original dose 483.5 mg), intravenous, Once, 1 of 4 cycles Dose modification: (original dose 483.5 mg, Cycle 1, Reason: Other (See Comments), Comment: .) Administration: 495 mg (06/03/2024) palonosetron (Aloxi) injection 250 mcg, 250 mcg, intravenous, Once, 1 of 4 cycles Administration: 250 mcg (06/03/2024) PACLitaxel (Taxol) 240 mg in sodium chloride 0.9 % 290 mL IVPB, 150 mg/m2 = 240 mg (75 % of original dose 200 mg/m2), intravenous, Once, 1 of 4 cycles Dose modification: 150 mg/m2 (origina (more content not included)... [facility] 06-05-2024 Note Daily Case Managemen t Update Barriers to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 they would be the quickest with emergency assistance and could refer him to local programs this proposal lead writer is not aware of as this is an outside county. Also provided pt with a donated food pantry bag to help offset his expenses. [facility] 06-04-2024 Note Physical Therapy Physical Therapy Treatment Patient Name: Kristen Smith : 1965 Today's Date: 06/04/2024 Patient Active Problem List Diagnosis Squamous cell carcinoma of lung, stage IV, right (CMS/HCC) Metastatic squamous cell carcinoma to lung, right (CMS/HCC) Malignant neoplasm of bone of upper extremity, right (CMS/HCC) Generalized weakness Unspecified protein-calorie malnutrition (CMS/HCC) Pressure injury of coccygeal region, unstageable (CMS/HCC) Malignancy associated hypercalcemia Panlobular emphysema (CMS/HCC) Lymphadenopathy, mediastinal Leukocytosis Cancer related pain Nausea and vomiting Objective pt agreeable to participate with therapy @ this time. Upon arrival pt in supine with HOB elevated. General Visit Information: PT Last Visit PT Received On: 06/04/24 Response to Previous Treatment: Patient with no complaints from previous session. General Family/Caregiver Present: No Subjective: pt agreeable to participate with therapy. Activity Tolerance Activity Tolerance Ambulation comments: pt amb 150 ft no AD, SBA of 1 Activity Tolerance Comments: pt erwin ther ex & amb Precautions Precautions UE Weight Bearing Status: Right (has sling, defers using) Pain Pain Assessment Pain Assessment: No/denies pain Cognition Cognition Overall Cognitive Status: Within Functional Limits Arousal/Alertness: Appropriate responses to stimuli Orientation Level: Oriented X4 General Assessment General Assessments: Activity Tolerance Ambulation comments: pt amb 150 ft no AD, SBA of 1 Activity Tolerance Comments: pt erwin ther ex & amb Cognition Overall Cognitive Status: Within Functional Limits Arousal/Alertness: Appropriate responses to stimuli Orientation Level: Oriented X4 Treatment: Therapeutic Exercise Therapeutic Exercise Time Entry: 45 Therapeutic Exercise Activity 1: 10 reps HEP of supine, seated, standing bilat LE ther ex AROM Therapeutic Exercise Activity 2: side step & side step with marches @ 2 laps of each (each lap 28 ft long) while holding onto hallway rail Therapeutic Exercise Activity 3: sit<->stand from EOB to EOB 10 reps Therapeutic Activity Therapeutic Activity Time Entry: 10 Transfers from various heightened surfaces with distant supervision, no assistive device Static standing independent Dynamic standing 1 UE support Independent with bed mobility Treatment Comments: After therapy pt left seated EOB Outcome Assessments 6 Clicks (Mobility) Help from another person turning from your back to your side while in a flat bed without using bedrails: None Help from another person moving from lying on your back to sitting on the side of a flat bed without using bedrails: None Help from another person moving to and from a bed to a chair (including a wheelchair): None Help from another person standing up from a chair using your arms (e.g. wheelchair or bedside chair): None Help from another person to walk in hospital room: A little Help from another person climbing 3-5 steps with a railing: A little Mobility 6 Clicks T-Score: 22 Assessment/Plan PT Assessment PT Assessment/LEAD HOUSEKEEPER Summary: pt erwin received & erwin HEP packet for bilat LE strengthening. PT Education/Comments: pt educated on bilat LE HEP. Pt educated on how to scan the code on packet to see & hear HEP displayed on phone. Plan Level of assist: 1 assist PT Plan: Skilled PT PT Frequency: 5 times per week until discharge & PRN PT Discharge Recommendations: Home PT - Discharge Recommendations Placed: Yes Goals: Multi-Disciplinary Problems (from Physical Therapy) Active Problems Problem: PT Misc Start Date: 06/02/24 Goal Start Date Expected End Date End Date Stairs as needed to access home, independent 06/02/24 06/10/24 -- Goal Start Date Expected End Date End Date Patient will climb full flight of stairs in manner simulating home set up (lack of rails) 06/02/24 06/10/24 -- Goal Start Date Expected End Date End Date Pt to progress standing balance to allow return to prior level of functional activity, ADLs and tasks 06/02/24 06/10/24 -- Goal Start Date Expected End Date End Date Pt to demonstrate activity tolerance to perform 45 min session including gait and standing dynamic exercise to facilitate return to independent ADLs and tasks 06/02/24 06/10/24 -- Goal Start Date Expected End Date End Date Patient to demonstrate improved righting reactions and/or reduced dependence on assistive device through performing dynamic closed chain balance exercise 06/02/24 06/10/24 -- [facility] 06-04-2024 Note Hospital Medicine Daily Progress Note - 06/04/2024 11:03 AM; Room: [address] [place] [address] Admission: 06/01/2024 10:58 PM; Length of stay: 3 days THE HOSPITALIST TEAM PREFERS TO USE ADOR CHAT FOR COMMUNICATION 7AM-7PM. IF I DO NOT RESPOND WITHIN 15 MINUTES, PLEASE PAGE ME/CALL THROUGH THE RACING MANAGER. FROM 7PM-7AM, PLEASE PAGE [phone](COVR) Code Status: Full Code Barriers to Discharge: Chemotherapy, hypercalcemia Expected Discharge Date: 3 to 4 days Discharge Destination: To be decided Overview Patient is seen for evaluation and management of new diagnosis of lung cancer and hypercalcemia. Subjective Patient seen and examined at bedside. He is sitting comfortably in bed. Patient has received first session of chemotherapy yesterday. States that his appetite is better. Denies nausea, vomiting, diarrhea or fever or chills. Physical Exam Visit Vitals BP 102/90 (BP Location: Right arm, Patient Position: Sitting) Pulse 77 Temp 36.3 ???C (97.3 ???F) (Oral) Resp 18 Intake/Output Summary (Last 24 hours) at 06/04/2024 1103 Last data filed at 06/03/2024 1811 Gross per 24 hour Intake 889.5 ml Output -- Net 889.5 ml Physical Exam General: Alert active oriented x3, in no acute distress, HEENT: Atraumatic, normocephalic Chest: Decreased breath sounds bilateral CVS: Regular rate and rhythm Abdomen: Soft, Extremities: Positive pedal edema noted. Estimated body mass index is 17.59 kg/m??? as calculated from the following: Height as of this encounter: 1.778 m (5' 10 ). Weight as of this encounter: 55.6 kg (122 lb 9.6 oz). 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, right (CMS/HCC) Generalized weakness Unspecified protein-calorie malnutrition (CMS/HCC) Pressure injury of coccygeal region, unstageable (CMS/HCC) Malignancy associated hypercalcemia Panlobular emphysema (CMS/HCC) Lymphadenopathy, mediastinal Leukocytosis Cancer related pain Nausea and vomiting Assessment and Plan Squamous cell carcinoma of lung, stage IV right-mets to brain, right humerus and femur along with hypercalcemia Panlobular emphysema Lymphadenopathy, mediastinal -Prior CT shoulder per [facility] [place] exhibits large lytic destructive bony neoplasm, right humeral head, 6.5 cm. - CT neck/lung per [facility] [place] exhibits severe emphysema, marked left supraclavicular and mediastinal/hilar lymphadenopathy - Consult hematology oncology for pending initiation of chemotherapy -35+ year smoking/tobacco use history, reportedly 1-1.5 PPD. Recommend smoking cessation education and use of nicotine patch if patient agreeable. -Patient is started on carboplatin paclitaxel chemotherapy and received first session on 06/03/2024 - Continue with pain control . Start OxyContin 10 mg every 12 for which patient was taking at home and as needed morphine for breakthrough pain. -Plan for cycle 1 of carboplatin and paclitaxel today -P.o. Tylenol for mild pain -IV/p.o. Zofran 4 mg every 6 hours as needed # Lower extremity swelling: Will get Doppler lower extremity to rule out DVT # Hypercalcemia in the setting of lung cancer -Patient is now status post pamidronate prior to transfer from [facility]. -Serum calcium improved and now down to 8.2 -Appropriately suppressed PTH, PTH RP negative # Frequent PVCs: Monitor and replace electrolytes closely-Improved -Echocardiogram #Hyponatremia: Mild In the setting of cancer Continue to monitor Hypokalemia and hypomagnesemia:Improved Leukocytosis - Afebrile and no overt signs of infection. -Blood cultures-no growth to date -Send sputum culture, check procalcitonin. Close monitoring for any signs or symptoms of infection. nasal MRSA negative -Hold off antibiotics for now with low threshold to start Severe Protein calorie malnutrition Pressure injury of coccygeal region, unstageable Generalized weakness -consult to wound care - dietitian on board - Patient reports poor tolerance with thick/rich protein shakes. Resource breeze/boost breeze ordered instead for extra nutrients and calories. -speech evaluation and consider appetite stimulants - PT and OT to evaluate and treat -IV/p.o. Zofran 4 mg every 6-8 hours as needed Nutrition Screen Clinical Indicators of Malnutrition: poor appetite, wound healing needs, low BMI <18.5 if < 70 yrs old, unintentional weight loss, reduced energy intake, loss of subcutaneous fat with locations identified, loss of muscle mass with location identified Malnutrition Assessment (Completed by BRAD) Severe PCM: Chronic Illness: >7.5% weight loss in 3 months, severe loss of subcutaneous fat, severe muscle loss, <75% est. energy loss require >/ or equal to 1 month Treatment & Interventio (more content not included)... [facility] 06-04-2024 Note Attestation signed by Luisana Currie MD at 06/04/2024 12:55 PM By using the attestations below, the signing clinician agrees that I have read and verify that the documentation has been personally reviewed by me and ensure that the documentation accurately reflects the encounter. As noted by Norberto WOODARD: I personally saw this patient on the day of the encounter, performed the osorio portion(s) of the service and participated in the management and confirm the resident's documentation. Please note there may be an additional personal documentation from me. Additional Comments: Tolerated well and await RT eval tomorrow With it in the - and no patient factors will need counts eval and neupogen as needed out patient Questions answered INPATIENT HEMATOLOGY / ONCOLOGY PROGRESS NOTE Inpatient Hematology Oncology Fellow availability Wednesday - 830am-500pm and Wednesday 830am-430pm. (During these hours, please contact Hematology Oncology Fellow through [employer] Chat first.) For Hematology Oncology needs on weekends and after hours, please page the on-call physician through the hospital thiokol operator. Patient ID: Kristen Smith, 58 y.o. male Requested by: Rufina Beard MD PCP: Suzanne Roberson CNP : 1965 Interval Events / Subjective: Pt doing well. He has no major concern. Reports he slept best last night in past 3 months. He denies nausea, vomiting headache, cough, hempotysis. No fever, or chills. Leg swelling present for past few weeks. No pain in the legs. Tolearted chemotherapy well. Feels appetite is coming back and feels hungry Assessment: / Plan Kristen Smith is a 58-year-old man who is recently diagnosed with metastatic squamous cell carcinoma of the lung. He is admitted to [facility] for initiation of carboplatin paclitaxel and medical optimization. # Stage IV metastatic squamous cell carcinoma of the lung (NGS pending ) 35+ pack year current smoke (Mets to brain, right humerus and femur, hypercalcemia and cachexia) Concerning 2 mm area of enhancement within right midbrain suspicious for metastatic disease. Monitor cbc, cmp Appreciate physical therapy and speech evaluation Appreciate pain management per palliative recommendations # Hypercalcemia Due to lung cancer. PTH, PTH rp is negative 12.1--> 11.6--> 9.2 --> 8.2 Resolved. Clinically improved. S/p zometa and IV fluids. Low vitamin D # Leg edema Check leg dopplers # Chronic normocytic anemia Curtis Anderson MD, [facility] Hematology/Oncology Fellow PGY-5 [facility] [employer] chat preferred ASCOM: [id number] - I have reviewed the patient's hematologic/oncologic course to date, including reports, labs, imaging, and diet consultant notes. - NCCN Guidelines were reviewed when appropriate and discussed with the patient. - I discussed the diagnosis, risks, and goals of therapy with the patient and answered all of the patient's questions. - I personally saw the patient, performed the H&PE, and formulated the assessment and plan. I also discussed the assessment and plan with the attending physician. - Formal addendum/attestation from attending to follow. Oncologic Hx: Oncology History Squamous cell carcinoma of lung, stage IV, right (CMS/HCC) 05/31/2024 Initial Diagnosis Squamous cell carcinoma of lung, stage IV, right (CMS/HCC) 06/03/2024 - Chemotherapy fosaprepitant (Emend) 150 mg in sodium chloride 250 mL IVPB, 150 mg, intravenous, Once, 1 of 4 cycles CARBOplatin (Paraplatin) 485 mg in sodium chloride 0.9 % 298.5 mL IVPB, 485 mg (100 % of original dose 483.5 mg), intravenous, Once, 1 of 4 cycles Dose modification: (original dose 483.5 mg, Cycle 1, Reason: Other (See Comments), Comment: .) palonosetron (Aloxi) injection 250 mcg, 250 mcg, intravenous, Once, 1 of 4 cycles PACLitaxel (Taxol) 240 mg in sodium chloride 0.9 % 290 mL IVPB, 150 mg/m2 = 240 mg (75 % of original dose 200 mg/m2), intravenous, Once, 1 of 4 cycles Dose modification: 150 mg/m2 (original dose 200 mg/m2, Cycle 1, Reason: Other (See Comments), Comment: MD discretion) Cancer Staging No matching staging information was found for the patient. @[email or web address]@ Medications: Current Facility-Administered Medications: acetaminophen (Tylenol) tablet 650 mg, 650 mg, oral, q6h PRN, Juan Márquez NP melatonin tablet 5 mg, 5 mg, oral, Nightly PRN, Juan Márquez NP ondansetron ODT (Zofran-ODT) disintegrating tablet 4 mg, 4 mg, oral, q8h PRN OR ondansetron HCl (PF) (Zofran) injection 4 mg, 4 mg, intravenous, q6h PRN, Juan Márquez NP, 4 mg at 06/03/24 0951 oxyCODONE ER (OxyCONTIN) 12 hr tablet 10 mg, 10 mg, oral, q12h MAICO, Sarbjit Johnson MD, 10 mg at 06/04/24 0856 sennosid (more content not included)... [facility] 06-03-2024 Note Physical Therapy Physical Therapy Treatment Patient Name: Kristen Smith : 1965 Today's Date: 06/03/2024 Patient Active Problem List Diagnosis Squamous cell carcinoma of lung, stage IV, right (CMS/HCC) Metastatic squamous cell carcinoma to lung, right (CMS/HCC) Malignant neoplasm of bone of upper extremity, right (CMS/HCC) Generalized weakness Unspecified protein-calorie malnutrition (CMS/HCC) Pressure injury of coccygeal region, unstageable (CMS/HCC) Malignancy associated hypercalcemia Panlobular emphysema (CMS/HCC) Lymphadenopathy, mediastinal Leukocytosis Cancer related pain Nausea and vomiting Objective Pt seated EOB General Visit Information: PT Last Visit PT Received On: 06/03/24 Response to Previous Treatment: Patient with no complaints from previous session. General Family/Caregiver Present: No Subjective: pt agreeable to participate with therapy. Activity Tolerance Activity Tolerance Ambulation comments: no amb Activity Tolerance Comments: pt erwin bilat LE ther ex/strengthening Precautions Precautions UE Weight Bearing Status: Right (has sling)-defers use of sling this therapy visit. Pain Pain Assessment Pain Assessment: No/denies pain Cognition Cognition Overall Cognitive Status: Within Functional Limits Arousal/Alertness: Appropriate responses to stimuli Orientation Level: Oriented X4 General Assessments: Activity Tolerance Ambulation comments: no amb Activity Tolerance Comments: pt erwin bilat LE ther ex/strengthening Cognition Overall Cognitive Status: Within Functional Limits Arousal/Alertness: Appropriate responses to stimuli Orientation Level: Oriented X4 Treatment: Therapeutic Exercise Therapeutic Exercise Activity 1: 10 reps bilat LE seated EOB: hip abd/add, LAQ, PF/DF, marches Therapeutic Exercise Activity 2: 10 reps with AROM in standin way hip, marches, PF/DF, mini squats Therapeutic Exercise Activity 3: sit<->stand from EOB to EOB 10 reps Treatment Comments: pt left seated EOB Assessment/Plan PT Assessment PT Assessment/LEAD HOUSEKEEPER Summary: pt erwin bilat LE strengthening. pt with n/v during therapy. pt received Zofran. No amb d/t n/v. pt could benefit from cont therapy to improve his dynamic functional mobility. PT Education/Comments: pt educated on PT POC Plan Level of assist: 1 assist PT Plan: Skilled PT PT Frequency: 5 times per week until discharge & PRN PT Discharge Recommendations: Home PT - Discharge Recommendations Placed: Yes Goals: Multi-Disciplinary Problems (from Physical Therapy) Active Problems Problem: PT Misc Start Date: 06/02/24 Goal Start Date Expected End Date End Date Stairs as needed to access home, independent 06/02/24 06/10/24 -- Goal Start Date Expected End Date End Date Patient will climb full flight of stairs in manner simulating home set up (lack of rails) 06/02/24 06/10/24 -- Goal Start Date Expected End Date End Date Pt to progress standing balance to allow return to prior level of functional activity, ADLs and tasks 06/02/24 06/10/24 -- Goal Start Date Expected End Date End Date Pt to demonstrate activity tolerance to perform 45 min session including gait and standing dynamic exercise to facilitate return to independent ADLs and tasks 06/02/24 06/10/24 -- Goal Start Date Expected End Date End Date Patient to demonstrate improved righting reactions and/or reduced dependence on assistive device through performing dynamic closed chain balance exercise 06/02/24 06/10/24 -- [facility] 06-03-2024 Note Attestation signed by Luisana Currie MD at 06/04/2024 12:35 PM By using the attestations below, the signing clinician agrees that I have read and verify that the documentation has been personally reviewed by me and ensure that the documentation accurately reflects the encounter. GC: I personally saw this patient on the day of the encounter, performed the osorio portion(s) of the service and participated in the management and confirm the resident's documentation. Please note there may be an additional personal documentation from me. Additional Comments: Chemo toxicity discussed and MRI head discussed and request our RT colleagues to see patient Wednesday and family skyeber's questions answered Luisana Currie MD INPATIENT HEMATOLOGY / ONCOLOGY PROGRESS NOTE Inpatient Hematology Oncology Fellow availability Wednesday - 830am-500pm and Wednesday 830am-430pm. (During these hours, please contact Hematology Oncology Fellow through [employer] Chat first.) For Hematology Oncology needs on weekends and after hours, please page the on-call physician through the hospital thiokol operator. Patient ID: Kristen Smith, 58 y.o. male Requested by: Rufina Beard MD PCP: Suzanne Roberson CNP : 1965 Interval Events / Subjective: patient is still complaining of right shoulder pain but states his breathing is stable. He has no acute complaints. He denies any chest pain, shortness of breath, nausea vomiting or diarrhea. Assessment: / Plan Kristen Smith is a 58-year-old man who is recently diagnosed with metastatic squamous cell carcinoma of the lung. He is admitted to [facility] for initiation of carboplatin paclitaxel and medical optimization. Stage IV squamous cell carcinoma of the lung, mets to right humerus and femur, complicated by hypercalcemia and significant weight loss Concerning 2 mm area of enhancement within right midbrain suspicious for metastatic disease. Hypercalcemia of malignancy, patient received IV bisphosphonate prior to [facility] transfer and calcium is improved chronic normocytic anemia Low vitamin D Anorexia Frailty 35+ pack year current smoker Plan: Initiate carboplatin paclitaxel Today plan to monitor over the weekend and follow-up with [facility] after discharge Paclitaxel at 150 mg/m???, 240 mg Carboplatin 495 mg target AUC 5 Monitor daily CBC and CMP Appreciate physical therapy and speech evaluation Appreciate pain management per palliative recommendations Thiago Lala MD Hematology/Oncology Fellow PGY-4 [facility] [employer] preferred ASCOM: [id number] - I have reviewed the patient's hematologic/oncologic course to date, including reports, labs, imaging, and diet consultant notes. - NCCN Guidelines were reviewed when appropriate and discussed with the patient. - I discussed the diagnosis, risks, and goals of therapy with the patient and answered all of the patient's questions. - I personally saw the patient, performed the H&PE, and formulated the assessment and plan. I also discussed the assessment and plan with the attending physician. - Formal addendum/attestation from attending to follow. Thiago Lala MD Hematology/Oncology Fellow PGY-4 [facility] [employer] preferred Oncologic Hx: Oncology History Squamous cell carcinoma of lung, stage IV, right (CMS/HCC) 05/31/2024 Initial Diagnosis Squamous cell carcinoma of lung, stage IV, right (CMS/HCC) 06/03/2024 - Chemotherapy fosaprepitant (Emend) 150 mg in sodium chloride 250 mL IVPB, 150 mg, intravenous, Once, 1 of 4 cycles CARBOplatin (Paraplatin) 485 mg in sodium chloride 0.9 % 298.5 mL IVPB, 485 mg (100 % of original dose 483.5 mg), intravenous, Once, 1 of 4 cycles Dose modification: (original dose 483.5 mg, Cycle 1, Reason: Other (See Comments), Comment: .) palonosetron (Aloxi) injection 250 mcg, 250 mcg, intravenous, Once, 1 of 4 cycles PACLitaxel (Taxol) 240 mg in sodium chloride 0.9 % 290 mL IVPB, 150 mg/m2 = 240 mg (75 % of original dose 200 mg/m2), intravenous, Once, 1 of 4 cycles Dose modification: 150 mg/m2 (original dose 200 mg/m2, Cycle 1, Reason: Other (See Comments), Comment: discretion) Cancer Staging No matching staging information was found for the patient. @[email or web address]@ Medications: Current Facility-Administered Medications: acetaminophen (Tylenol) tablet 650 mg, 650 mg, oral, q6h PRN, Juan Márquez NP CARBOplatin (Paraplatin) 495 mg in sodium chloride 0.9 % 299.5 mL IVPB, 495 mg, intravenous, Once, Carmen Montiel MD dexAMETHasone (Decadron) 20 mg in sodium chloride 0.9 % 52 mL IVPB, 20 mg, intravenous, Once, Duglas Lala MD diphenhydrAMINE (BENADryl) injection 50 mg, 50 (more content not included)... [facility] 06-03-2024 Note Hospital Medicine Daily Progress Note - 06/03/2024 10:15 AM; Room: [facility]- Admission: 06/01/2024 10:58 PM; Length of stay: 2 days THE HOSPITALIST TEAM PREFERS TO USE ADOR CHAT FOR COMMUNICATION 7AM-7PM. IF I DO NOT RESPOND WITHIN 15 MINUTES, PLEASE PAGE ME/CALL THROUGH THE RACING MANAGER. FROM 7PM-7AM, PLEASE PAGE [phone](COVR) Code Status: Full Code Barriers to Discharge: Chemotherapy, hypercalcemia Expected Discharge Date: 3 to 4 days Discharge Destination: To be decided Overview Patient is seen for evaluation and management of new diagnosis of lung cancer and hypercalcemia. Subjective Patient seen and examined at bedside. He is lying comfortably in bed. States that his appetite is better now. Noted to have improvement in PVCs after electrolyte replacement. Denies any chest pain, nausea, vomiting or trouble breathing. Noted plan for chemotherapy today. Physical Exam Visit Vitals BP 117/76 Pulse 72 Temp 36.6 ???C (97.9 ???F) Resp 16 Intake/Output Summary (Last 24 hours) at 06/03/2024 1015 Last data filed at 06/02/2024 2132 Gross per 24 hour Intake 1897.42 ml Output -- Net 1897.42 ml Physical Exam General: Alert active oriented x3, in no acute distress, HEENT: Atraumatic, normocephalic Chest: Decreased breath sounds bilateral CVS: Regular rate and rhythm Abdomen: Soft, Extremities: No pedal edema noted. Estimated body mass index is 14.02 kg/m??? as calculated from the following: Height as of this encounter: 1.778 m (5' 10 ). Weight as of this encounter: 44.3 kg (97 lb 11.2 oz). 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, right (CMS/HCC) Generalized weakness Unspecified protein-calorie malnutrition (CMS/HCC) Pressure injury of coccygeal region, unstageable (CMS/HCC) Malignancy associated hypercalcemia Panlobular emphysema (CMS/HCC) Lymphadenopathy, mediastinal Leukocytosis Cancer related pain Nausea and vomiting Assessment and Plan Squamous cell carcinoma of lung, stage IV right Metastatic squamous cell carcinoma to lung, right Malignant neoplasm of bone of upper extremity, right Panlobular emphysema Lymphadenopathy, mediastinal Nausea and vomiting -Prior CT shoulder per [facility] exhibits large lytic destructive bony neoplasm, right humeral head, 6.5 cm. - CT neck/lung per [facility] exhibits severe emphysema, marked left supraclavicular and mediastinal/hilar lymphadenopathy - Consult hematology oncology for pending initiation of chemotherapy -35+ year smoking/tobacco use history, reportedly 1-1.5 PPD. Recommend smoking cessation education and use of nicotine patch if patient agreeable. - Continue with pain control . Start OxyContin 10 mg every 12 for which patient was taking at home and as needed morphine for breakthrough pain. -Plan for cycle 1 of carboplatin and paclitaxel today -P.o. Tylenol for mild pain -IV/p.o. Zofran 4 mg every 6 hours as needed # Hypercalcemia in the setting of lung cancer -Patient is now status post pamidronate prior to transfer from [facility]. -Serum calcium improved and now down to 10.2 -Appropriately suppressed PTH, pending PTH RP and vitamin D levels # Frequent PVCs: Monitor and replace electrolytes closely -Echocardiogram -Repeat EKG. #Hyponatremia: Mild In the setting of cancer Continue to monitor Hypokalemia and hypomagnesemia: monitor and replace Leukocytosis - Afebrile and no overt signs of infection. -Blood cultures-no growth to date -Send sputum culture, check procalcitonin. Close monitoring for any signs or symptoms of infection. Check nasal MRSA -Hold off antibiotics for now with low threshold to start Protein calorie malnutrition, unspecified Pressure injury of coccygeal region, unstageable Generalized weakness Nausea and vomiting -consult to wound care - Consult dietitian - Patient reports poor tolerance with thick/rich protein shakes. Resource breeze/boost breeze ordered instead for extra nutrients and calories. -speech evaluation and consider appetite stimulants - Consult PT and OT to evaluate and treat -IV/p.o. Zofran 4 mg every 6-8 hours as needed Nutrition Screen Clinical Indicators of Malnutrition: poor appetite, wound healing needs, low BMI <18.5 if < 70 yrs old, unintentional weight loss, reduced energy intake, loss of subcutaneous fat with locations identified, loss of muscle mass with location identified Malnutrition Assessment (Completed by RD) Severe PCM: Chronic Illness: >7.5% weight loss in 3 months, severe loss of subcutaneous fat, severe muscle loss, <75% est. energy loss require >/ or equal to 1 month Treatment & Intervention Plan: textures per LINUX UNIX SYSTEM ADMINISTRATOR pending swallow study, RD nanda albright (more content not included)... [facility] 06-02-2024 Note 06/02/24 8245 Admission Assessment Questions Verify insurance with patient Yes ([employer] [place] Medicaid) Do you understand medical disease or what brought you into the hospital? Yes Who is your current PCP? sees Alfie Nicholas but will likely switch to a Physician because of his complexities that are currently going on Can I schedule a follow up appointment for you at the time of discharge? Yes Do you understand why you are taking your current medications? Yes Are you taking your medications as prescribed? Yes Did patient provide teach back? No Pharmacy Bedside Delivery Status Interested Does the patient have a immigration case worker assigned to them through their insurance? No Living Arrangement (Current/Prior to Hospitalization) Private residence;Home self care (lives with Emily in [address] [place] [address] home, bedroom & bathroom are both upstairs; Has the support of 3 adult kids from his ) Does the patient have history of HHC or SNF? No Assistive Device Grab bars;Crutches;Wheelchair Patient's goal for discharge return Home, no needs Was patient reminded that goal for discharge is 11am? Yes Does the patient have transportation at discharge? Yes ( Emily) Type of Residence Private residence Is PT/OT appropriate? Yes Is PT/OT ordered? Yes Is SW consult appropriate? Yes Is SW consult ordered? Yes Do you understand the benefits of MyChart? Yes Were you able to send link and activate MyChart? No (unable to sign pt up for MyChart as he does not know his email address) Screen completed with patient & Emily at bedside. Await medical stability: start Chemo ~06/03, PICC placed today, Hem-Oncology Palliative & Wound Care consults today, MRI brain/CT abd+pelvis today, Control N&V, Trend WBC 19.27<23.85, Infx work-up, Tx from [place] w/ New Dx Lung Cancer/Squamous Cell Stage IV, Discovered Mets to R Proximal Humerus, +Pressure Injury Coccyx Dc Plan : PT/OT=Home w/ assist, From Home w/ [facility] 06-02-2024 Note Speech Promotions Executive ology Speech/Language Pathology Clinical Swallow Assessment Recommendations Continue regular diet and thin liquids as tolerated Skilled ST services for dysphagia are not indicated at this time. History and Physical Kristen Smith is an 58 y.o. male who came from [facility] with past medical history including, but not limited to longstanding tobacco use (35+ years, currently 1-1.5 PPD), lump in neck, lesion on bone, right shoulder pain, and smoker's cough. Patient had presented to [facility] ED earlier today as instructed by his oncologist with primary complaint of generalized weakness. Patient recently diagnosed with lung cancer however has not yet started any treatment. He had reported he was feeling weak and that he fell andinjured right shoulder. Patient reportedly having ongoing issues with right shoulder however no other injuries were sustained and patient denied hitting his head. Subjective Patient upright in recliner upon ST entry, awake, alert and agreeable to ST services. No family present at bedside. Baseline Assessment Respiratory Status: Room air History of Intubation: No Behavior/Cognition: Alert, Cooperative, Pleasant mood Dentition: Adequate Vision: Functional for self-feeding Patient Positioning: Upright in chair Baseline Vocal Quality: Normal Labial Function Labial ROM: Within Functional Limits Labial Symmetry: Within Functional Limits Labial Strength: Within Functional Limits Lingual Function Lingual ROM: Within Functional Limits Lingual Symmetry: Within Functional Limits Lingual Strength: Within Functional Limits Facial Facial ROM: Within Functional Limits Facial Symmetry: Within Functional Limits Facial Strength: Within Functional Limits Velar Group Velum: Within Functional Limits Laryngeal Function Vocal Quality: Within Functional Limits Vocal Intensity: No impairment Consistencies Assessed Consistencies Assessed: Yes Thin Presentation: Cup, Straw Oral: Within functional limits Pharyngeal: Within Functional Limits Puree Presentation: Self Fed, Spoon Oral: (Expectorated due to disliking taste and texture) Pharyngeal: Other (Comment) (N/A) Solid Presentation: Self Fed Oral: Within functional limits Pharyngeal: Within Functional Limits Aspiration Risk Diet Solids Recommendation: Regular consistency Diet Liquids Recommendations: Thin liquids Compensatory Swallowing Strategies: Upright as possible for all oral intake, Remain upright for 20-30 minutes after meals, Small bites/sips, Eat/feed slowly Recommended Form of Medications: Whole Impressions: Patient presents with intact oral phase with adequate textural breakdown and oral clearance of solids. No overt s/s of aspiration were observed at bedside although pharyngeal impairments cannot be ruled out without instrumental assessment. Instrumental assessment is not indicated at this time. Patient reporting that he has had changing taste preferences which have impacted his appetite. This is why the pudding offered during this evaluation was expectorated. He also reports that sometimes he tries to eat something and it 'won't go down and will come back up'. Patient currently undergoing treatment for stage IV cancer and has known metastasis and a known lump in his neck that is visible externally. It is possible that this is impacting swallow function. Patient may also have esophageal dysphagia due to reports of regurgitation. Oral and pharyngeal phase of swallow are intact. Skilled ST services are not indicated at this time. Recommendations Follow up treatments: Other (Comment) (Skilled ST services for dysphagia not indicated at this time.) Rosa Fleming M.A. [facility] [facility]MINISTRATOR [facility] 06-02-2024 Note Occupational Therapy Occupational Therapy Evaluation Patient Name: Kristen Smith : 1965 Today's Date: 06/02/2024 Discharge Recommendation: Home with A 58 y/o M admitted with general weakness and stage 4 lung CA with R humerus malignant neoplasm. Initiated session with pt supine in bed. Pt supine to sit to stand, functional mobility to bathroom, seated toileting, to chair, stand to sit, doffed/donned socks, and tolerated ROM and MMT. Concluded session with pt seated in chair with call light in reach. RN approved pt for OOB activity this date and pt agreeable. Time In: 1307 Time Out: 1333 General Subjective: Pt pleasant and cooperative Family/Caregiver Present: No Patient Active Problem List Diagnosis Squamous cell carcinoma of lung, stage IV, right (CMS/HCC) Metastatic squamous cell carcinoma to lung, right (CMS/HCC) Malignant neoplasm of bone of upper extremity, right (CMS/HCC) Generalized weakness Unspecified protein-calorie malnutrition (CMS/HCC) Pressure injury of coccygeal region, unstageable (CMS/HCC) Malignancy associated hypercalcemia Panlobular emphysema (CMS/HCC) Lymphadenopathy, mediastinal Leukocytosis Cancer related pain Nausea and vomiting Past Medical History: Diagnosis Date Cancer (CMS/HCC) History reviewed. No pertinent surgical history. Precautions Precautions UE Weight Bearing Status: Right (no official order, treat as NWB d/t humerus lesion) Pain Pain Assessment Pain Assessment: 0-10 Pain Score: 7 Pain Type: Acute pain Pain Location: (R humerus) Cognition Cognition Overall Cognitive Status: Within Functional Limits General Assessment General Assessment Hearing: WFL Hand Dominance: Left Home Living Home Living Type of Home: House Lives With: Spouse Home Adaptive Equipment: None Home Layout: Two level, Bed/bath upstairs, Stairs to alternate level without rails Alternate Level Stairs-Number of Steps: f/f Home Access: Stairs to enter with rails Entrance Stairs-Number of Steps: 4 Bathroom Shower/Tub: Tub/shower unit Bathroom Toilet: Standard Bathroom Equipment: None Prior Level of Function Prior Function Level of [place]: Independent with ADLs and functional transfers, Independent with homemaking with ambulation (drives) Prior Functional Mobility: Independent without device Prior IADLs Static Sitting Balance Static Sitting Balance Static Sitting-Balance Support: No upper extremity supported, Feet supported Static Sitting-Level of Assistance: Independent Dynamic Sitting Balance Dynamic Sitting Balance Dynamic Sitting-Balance Support: No upper extremity supported, Feet supported Dynamic Sitting-Balance: Forward lean, Reaching for objects Dynamic Sitting Balance-Level of Assistance: Independent Static Standing Balance Static Standing Balance Static Standing-Balance Support: No upper extremity supported Static Standing-Level of Assistance: Independent Dynamic Standing Balance Dynamic Standing Balance Dynamic Standing-Balance Support: No upper extremity supported Dynamic Standing Balance-Level of Assistance: Independent ADL ADL Eating Assistance: Independent Grooming Assistance: Stand by Bathing Assistance: Minimal UE Dressing Assistance: Minimal UE Dressing Deficit: (managing gown) LE Dressing Assistance: Stand by LE Dressing Deficit: Don/doff R sock, Don/doff L sock Toileting Assistance with Device: Stand by Toileting Deficit: (seated toileting at toilet) Bed Mobility Bed Mobility Bed Mobility: Yes Bed Mobility 1 Bed Mobility From 1: Supine Bed Mobility Type 1: To Bed Mobility to 1: Short sit Level of Assistance 1: Independent Transfers Transfers Transfer: Yes Transfer 1 Transfer From 1: Bed Transfer Type 1: To Transfer to 1: Toilet Technique 1: Sit to stand, Stand to sit Transfer Device 1: none Transfer Level of Assistance 1: Independent Transfers 2 Transfer From 2: Toilet Transfer Type 2: To Transfer to 2: Chair with arms Technique 2: Sit to stand, Stand to sit Transfer Device 2: none Transfer Level of Assistance 2: Independent Objective General Assessments Activity Tolerance Endurance: Stage III Vision - Basic Assessment Current Vision: Wears glasses all the time Sensation Light Touch: No apparent deficits Coordination Coordination and Movement Description: R shoulder impaired, premorbid Hand Function Gross Grasp: Functional Coordination: Functional Extremity Assessments RUE Assessment RUE Assessment: Exceptions to WFL (R shoulder min AROM, PROM and MMT at shoulder and elbow MMT not performed d/t humerus lesion) LUE Assessment LUE Assessment: Within Functional Limits Outcome Assessments AM-PAC 6 Clicks Putting on and taking off regular lower body clothing?: A Little (Min Assist/Contact Guard/Supervision) Bathing(Including washing,rinsing,drying)?: A Little ( (more content not included)... [facility] 06-02-2024 Note Occupational Therapy Cancel Note Reason: Surgery pending: Testing: Off unit to MRI Refused: Medically Unstable: Bed Rest: Dialysis: Awaiting clarification of precautions: Intubated/Sedated: Other: OT will re-attempt as able. [facility] 06-02-2024 Note Chem[place]ach Patient is admitted for cycle 1 of carboplatin paclitaxel for stage IV non-small cell lung cancer. Written and verbal instructions provided regarding chemotherapy initiation in accordance with treatment plan. Discussed IV infusion, schedule/frequency, possible overall side effects-including inflammatory/tx with steroids, blood count monitoring, importance of nutrition and hydration, symptom management and support services reviewed with patient. Drug information sheets from [email or web address] provided. Questions answered; additional topics covered: disease control Patient verbalized and signed written consent. Standing labs ordered and supportive medications to be called into pharmacy. Thiago Laal MD Hematology/Oncology Fellow PGY-4 [facility] Epic chat preferred [facility] 06-02-2024 Note Hospital Medicine Daily Progress Note - 06/02/2024 11:42 AM; Room: [address] [place] [address] Admission: 06/01/2024 10:58 PM; Length of stay: 1 days THE HOSPITALIST TEAM PREFERS TO USE [employer] FOR COMMUNICATION 7AM-7PM. IF I DO NOT RESPOND WITHIN 15 MINUTES, PLEASE PAGE ME/CALL THROUGH THE RACING MANAGER. FROM 7PM-7AM, PLEASE PAGE [phone](COVR) Code Status: Full Code Barriers to Discharge: Chemotherapy, hypercalcemia Expected Discharge Date: 3 to 4 days Discharge Destination: To be decided Overview Patient is seen for evaluation and management of new diagnosis of lung cancer and hypercalcemia. Subjective Patient seen and examined at bedside. He is sitting comfortably in bed. Patient does complain of pain. Noted to have PVCs hold off. Denies chest pain, nausea, vomiting or shortness of breath. Physical Exam Visit Vitals BP 151/68 Pulse 58 Temp 37.2 ???C (98.9 ???F) Resp 16 Intake/Output Summary (Last 24 hours) at 06/02/2024 1142 Last data filed at 06/02/2024 0730 Gross per 24 hour Intake 457.58 ml Output 250 ml Net 207.58 ml Physical Exam General: Alert active oriented x3, in no acute distress, HEENT: Atraumatic, normocephalic Chest: Decreased breath sounds bilateral CVS: Regular rate and rhythm Abdomen: Soft, Extremities: No pedal edema noted. Estimated body mass index is 14.29 kg/m??? as calculated from the following: Height as of this encounter: 1.778 m (5' 10 ). Weight as of this encounter: 45.2 kg (99 lb 9.6 oz). 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, right (CMS/HCC) Generalized weakness Unspecified protein-calorie malnutrition (CMS/HCC) Pressure injury of coccygeal region, unstageable (CMS/HCC) Malignancy associated hypercalcemia Panlobular emphysema (CMS/HCC) Lymphadenopathy, mediastinal Leukocytosis Cancer related pain Nausea and vomiting Assessment and Plan Squamous cell carcinoma of lung, stage IV right Metastatic squamous cell carcinoma to lung, right Malignant neoplasm of bone of upper extremity, right Panlobular emphysema Lymphadenopathy, mediastinal Nausea and vomiting -Prior CT shoulder per [facility] [place] exhibits large lytic destructive bony neoplasm, right humeral head, 6.5 cm. - CT neck/lung per [facility] [place] exhibits severe emphysema, marked left supraclavicular and mediastinal/hilar lymphadenopathy - Consult hematology oncology for pending initiation of chemotherapy -35+ year smoking/tobacco use history, reportedly 1-1.5 PPD. Recommend smoking cessation education and use of nicotine patch if patient agreeable. - Continue with pain control . Start OxyContin 10 mg every 12 for which patient was taking at home and as needed morphine for breakthrough pain. -Plan for cycle 1 of carboplatin and paclitaxel -P.o. Tylenol for mild pain -IV/p.o. Zofran 4 mg every 6 hours as needed # Hypercalcemia in the setting of lung cancer -Patient is now status post pamidronate prior to transfer from [facility]. -Continue with IV fluids and close monitoring of calcium. -Pending PTH, PTH RP and vitamin D levels -Might need calcitonin if serum calcium does not improve. # Frequent PVCs: Monitor and replace electrolytes closely -Echocardiogram #Hyponatremia: Mild In the setting of cancer Continue to monitor Leukocytosis -WBC 22.3 per referring hospital, repeat CBC ordered and pending - Afebrile and no overt signs of infection. -Blood cultures pending -UA pending -Patient started on IV Zosyn empirically. Will plan to discontinue if culture remains negative Protein calorie malnutrition, unspecified Pressure injury of coccygeal region, unstageable Generalized weakness Nausea and vomiting -Optifoam/Mepilex overnight with consult to wound care - Consult dietitian - Patient reports poor tolerance with thick/rich protein shakes. Resource breeze/boost breeze ordered instead for extra nutrients and calories. -Will get speech evaluation and consider appetite stimulants - Consult PT and OT to evaluate and treat -IV/p.o. Zofran 4 mg every 6 hours as needed Nutrition Screen Clinical Indicators of Malnutrition: poor appetite, wound healing needs, low BMI <18.5 if < 70 yrs old, unintentional weight loss, reduced energy intake, loss of subcutaneous fat with locations identified, loss of muscle mass with location identified Malnutrition Assessment (Completed by RD) Severe PCM: Chronic Illness: >7.5% weight loss in 3 months, severe loss of subcutaneous fat, severe muscle loss, <75% est. energy loss require >/ or equal to 1 month Treatment & Intervention Plan: textures per [employer] ADMINISTRATOR pending swallow study, RD to change supplement, encouraged protein intakes to optimize wound healing, vitamin/m (more content not included)... [facility] 06-02-2024 Note [facility] Vascular Surgery/Wound Care CONSULTATION Reason for Consult: unstageable pressure injury to sacrum Subjective History of Present Illness: Kristen Smith is a 58 y.o. male who came from [facility] with past medical history including, but not limited to longstanding tobacco use (35+ years, currently 1-1.5 PPD), lump in neck, lesion on bone, right shoulder pain, and smoker's cough. Patient had presented to [facility] ED earlier today as instructed by his oncologist with primary complaint of generalized weakness. Patient recently diagnosed with lung cancer however has not yet started any treatment. He had reported he was feeling weak and that he fell andinjured right shoulder. Patient reportedly having ongoing issues with right shoulder however no other injuries were sustained and patient denied hitting his head. [place] ED course found patient to be hypercalcemic with a large amount of erosion of the proximal humerus. In collaboration with patient's oncologist, patient was given IV pamidronate as well as IV fluids while at [facility] and then arranged for transfer here to [facility]. XR chest showed right paratracheal fullness likely charter representative of lymphadenopathy which had been previously seen on prior CT. No new focal parenchymal infiltrates. XR right shoulder exhibits lytic destructive soft tissue mass of the proximal humerus that has significantly progressed from previous exam. No definite acute fracture. ECG had shown sinus rhythm with PVCs. Referring facility laboratory workup showed leukocytosis with WBC 22.3, TONI with BUN 27.0, creatinine 1.29, hyponatremia with sodium of 128, patient likely dehydrated due to poor oral intake. Patient also hypercalcemic with calcium 12.4. LFTs also elevated. Patient also exhibits malnutrition AEB albumin 1.9 andborderline total protein of 6.8 Wound/vascular consulted for unstageable pressure injury to sacrum. Patient endorses pain to the ulcer. Ulcer is non infected appearing at this time though it may worsen given his malnutrition and being immune compromised. He is cachectic, has a poor appetite and has protein calorie malnutrition which will likely delay wound healing. Review of Systems Constitutional: Positive for fatigue. HENT: Negative. Eyes: Negative. Respiratory: Negative. Cardiovascular: Negative. Gastrointestinal: Negative. Genitourinary: Negative. Musculoskeletal: Right arm and chest pain Pain to sacral ulcer Skin: Positive for wound. Neurological: Negative. Psychiatric/Behavioral: Negative. Past Medical History: Diagnosis Date Cancer (CMS/HCC) History reviewed. No pertinent surgical history. No Known Allergies Current Facility-Administered Medications: acetaminophen (Tylenol) tablet 650 mg, 650 mg, oral, q6h PRN, Juan Márquez NP lidocaine HCl (Xylocaine) 10 mg/mL (1 %) injection 5 mg, 0.5 mL, infiltration, PRN, Carmen Montiel MD lidocaine HCl (Xylocaine) 10 mg/mL (1 %) injection 5 mg, 0.5 mL, infiltration, PRN, Duglas Lala MD melatonin tablet 5 mg, 5 mg, oral, Nightly PRN, Juan Márquez NP morphine injection 2 mg, 2 mg, intravenous, q3h PRN, Juan Márquez NP naloxone (Narcan) injection 0.2 mg, 0.2 mg, intravenous, PRN OR naloxone (Narcan) injection 0.2 mg, 0.2 mg, intramuscular, PRN OR naloxone (Narcan) injection 0.2 mg, 0.2 mg, subcutaneous, PRN, Juan Márquez NP ondansetron ODT (Zofran-ODT) disintegrating tablet 4 mg, 4 mg, oral, q8h PRN OR ondansetron HCl (PF) (Zofran) injection 4 mg, 4 mg, intravenous, q6h PRN, Juan Márquez NP sennosides-docusate sodium (Alexus-Colace) 8.6-50 mg per tablet 1 tablet, 1 tablet, oral, Daily PRN, Juan Márquez NP sodium chloride 0.9 % infusion, 135 mL/hr, intravenous, Continuous, Oziel Jimenez MD, Last Rate: 135 mL/hr at 06/02/24 0354, 135 mL/hr at 06/02/24 0354 Insert peripheral IV, , , Once AND Saline lock IV, , , Once AND sodium chloride flush 10 mL, 10 mL, intravenous, q8h PRN, Juan Márquez NP sodium chloride flush 10 mL, 10 mL, intravenous, q12h, Carmen Montiel MD sodium chloride flush 10 mL, 10 mL, intravenous, PRN, Carmen Montiel MD sodium chloride flush 10 mL, 10 mL, intravenous, q12h, Duglas Lala MD sodium chloride flush 10 mL, 10 mL, intravenous, PRN, Duglas Lala MD sodium chloride flush 20 mL, 20 mL, intravenous, PRN, Carmen Montiel MD sodium chloride flush 20 mL, 20 mL, intravenous, PRN, Duglas Lala MD Social History Socioeconomic History Marital status: Spouse name: Not on file Number of children: Not on file Years of education: Not on file Highest education level: Not on file Occupational History Not on file Tobacco Use Smoking status: Former Packs/day: 3 Types: Cigarettes Start date: 1985 Quit date: 05/29/2024 Years since quittin.0 Smokeless tobacco: Never Vaping Use Vaping Use: Never (more content not included)... [facility] 06-02-2024 Note Physical Therapy Kitty marley Patient Name: Kristen Smith Today's Date: 06/02/2024 Admit Date: 06/01/2024 06/02/24 1547 PT Last Visit PT Received On 06/02/24 Plan Level of assist 1 assist PT Plan Skilled PT PT Frequency 5 times per week until discharge & PRN PT Discharge Recommendations Home PT - Discharge Recommendations Placed Yes History of present illness Patient is a 58 y.o. male s/p transfer from [facility] after oncologist recommended ED d/t weakness and fall. Recent diagnosis of lung Ca 05/31, not yet starting tx. Patient transferred to [facility] d/t hypercalcemia and R humerus bony lytic erosion. Recent 40# weight loss Past Medical History 3 ppd smoker 100+ pack year hx, marijuana Current Diagnoses Lung Ca, lymphadenopathy, coccyx pressure ulcer, proximal humerus lytic lesion, hypercalcemia PRIOR LEVEL OF FUNCTION obtained per patient and chart Mobility: independent w/o device ADLs: independent with grooming, bathing, and dressing IADLs/household management: independent with cooking, laundry, and cleaning Transportation: drives Social support family Home Set-Up: Patient lives with spouse in a 2 story home; 4 [place] Bedroom location: 2nd floor Bathroom location: 2nd floor Pt in bed, call light w/in reach, RN aware OBJECTIVE ASSESSMENT/PHYSICAL EXAM Cognition Overall Cognitive Status: WNL Communication: Intact Pain: Reports pain in R shoulder Sensation: WNL Edema/Skin Appearance: WNL Coordination/Tone: WNL Precautions IV, telemetry, fall risk Objective assessment Bed mobility Sit to supine: independent. Transfers Sit to/from stand: independent Gait Patient ambulates 20 feet, with No device, and independent Endurance Limited by: generalized fatigue Balance Sitting: patient able to sit independently with both feet on ground, with 0 upper extremity assist. Standing: patient able to stand independently with no assistive device Posture WNL ROM UE ROM: Impaired R shoulder not tested d/t lytic lesion of humeral neck and destruction of humeral head LE ROM: WNL Strength Functional strength WFL: see functional mobility assessment R shoulder flexion not tested Patient able to perform enough ROM RUE to place arm in sling, ordered by RN, and remove sling when getting into bed MMT deferred d/t presence of lytic lesions Education Verbal, Feedback during session, Functional mobility, and Safety Discussed fit/alignment and use of sling. Patient practiced taking sling on/off [place] unable to collect information regarding fall reported in chart. 06/02/24 1500 6 Clicks (Mobility) Help from another person turning from your back to your side while in a flat bed without using bedrails 4 Help from another person moving from lying on your back to sitting on the side of a flat bed without using bedrails 4 Help from another person moving to and from a bed to a chair (including a wheelchair) 4 Help from another person standing up from a chair using your arms (e.g. wheelchair or bedside chair) 4 Help from another person to walk in hospital room 4 Help from another person climbing 3-5 steps with a railing 4 Mobility 6 Clicks T-Score 24 Assessment Pt would benefit from cont skilled PT to regain functional mobility/independence and ensure safe return to PLOF. Pt limited by fatigue and deconditioning due to medical complexities. Interventions Fall Prevention strategies, Dynamic Balance interventions, and Endurance Training Plan PT [facility] Disciplines: PT Stairs as needed to access home, independent Expected end: 06/10/24 Patient will climb full flight of stairs in manner simulating home set up (lack of rails) Expected end: 06/10/24 Pt to progress standing balance to allow return to prior level of functional activity, ADLs and tasks Expected end: 06/10/24 Pt to demonstrate activity tolerance to perform 45 min session including gait and standing dynamic exercise to facilitate return to independent ADLs and tasks Expected end: 06/10/24 Patient to demonstrate improved righting reactions and/or reduced dependence on assistive device through performing dynamic closed chain balance exercise Expected end: 06/10/24 Elsi Verdugo PT, MPT [facility] Acute Rehabilitation [facility] 06-02-2024 Note Seen with storage engineer a/p rev iewed and agreed [facility] 06-01-2024 Note Hospital Medicine History and Physical 06/02/2024 2:40 AM THE HOSPITALIST TEAM PREFERS TO USE [employer] FOR NON-URGENT COMMUNICATION 7AM-7PM. IF I DO NOT RESPOND WITHIN 20 MINUTES OR URGENT MATTERS, PLEASE CALL THROUGH THE RACING MANAGER. FROM 7PM-7AM, PLEASE PAGE [phone](COVR). Chief Complaint Generalized weakness Lung cancer, new History of Present Illness Kristen Smith is an 58 y.o. male who came from [facility] with past medical history including, but not limited to longstanding tobacco use (35+ years, currently 1-1.5 PPD), lump in neck, lesion on bone, right shoulder pain, and smoker's cough. Patient had presented to [facility] ED earlier today as instructed by his oncologist with primary complaint of generalized weakness. Patient recently diagnosed with lung cancer however has not yet started any treatment. He had reported he was feeling weak and that he fell andinjured right shoulder. Patient reportedly having ongoing issues with right shoulder however no other injuries were sustained and patient denied hitting his head. [place] ED course found patient to be hypercalcemic with a large amount of erosion of the proximal humerus. In collaboration with patient's oncologist, patient was given IV pamidronate as well as IV fluids while at [facility] and then arranged for transfer here to [facility]. XR chest showed right paratracheal fullness likely charter representative of lymphadenopathy which had been previously seen on prior CT. No new focal parenchymal infiltrates. XR right shoulder exhibits lytic destructive soft tissue mass of the proximal humerus that has significantly progressed from previous exam. No definite acute fracture. ECG had shown sinus rhythm with PVCs. Referring facility laboratory workup showed leukocytosis with WBC 22.3, TONI with BUN 27.0, creatinine 1.29, hyponatremia with sodium of 128, patient likely dehydrated due to poor oral intake. Patient also hypercalcemic with calcium 12.4. LFTs also elevated. Patient also exhibits malnutrition AEB albumin 1.9 and borderline total protein of 6.8. Upon my assessment, patient is sitting upright at edge of bed and is A/OX4. Patient reports he just received diagnosis of lung cancer yesterday and that he is still trying to wrap his head around what to expect and what is up next. Review of systems predominantly unremarkable with exception of patient reported significant weight loss over the past few months of around 40 pounds. Patient reports absence of appetite and that he is not eating and therefore also having very minimal to no bowel movements. Patient denies any vomiting, constipation, or diarrhea however does endorse intermittent nausea. Patient states he cannot tolerate much oral intake other than milk and some juices. He reports he had tried nutrition shakes/protein shakes and they were to retch and ended up being thrown up. Patient at present, does not appear to be in any immediate distress however does appear emaciated as noted above. Respirations are regular, even, and unlabored with no accessory muscle use however lung sounds are clear/diminished throughout. Obvious deformity of right shoulder noted with limited ROM due to pain and discomfort. Patient states right shoulder/arm issue has been ongoing for weeks to months. Patient also noted to have unstageable pressure injury to sacral/coccygeal area, wound care to be consulted. Updated laboratory workup ordered and pending, XR chest ordered and pending. Baseline ECG ordered and pending. Patient admitted here to [facility] for further evaluation and treatment of lung cancer with metastasis to right proximal humerus, lesion to right arm, generalized weakness,hypercalcemia, and pending initiation of chemotherapy. Review of System and Physical Exam Temp: [36.5 ???C (97.7 ???F)] 36.5 ???C (97.7 ???F) Heart Rate: [73-94] 73 Resp: [20] 20 BP: (99-111)/(65-77) 100/66 Physical Exam Vitals and nursing note reviewed. Constitutional: General: He is not in acute distress. Appearance: He is ill-appearing. He is not toxic-appearing or diaphoretic. Comments: Thin, cachectic HENT: Head: Normocephalic and atraumatic. Right Ear: External ear normal. Left Ear: External ear normal. Nose: Nose normal. Mouth/Throat: Mouth: Mucous membranes are dry. Pharynx: Oropharynx is clear. Eyes: Extraocular Movements: Extraocular movements intact. Conjunctiva/sclera: Conjunctivae normal. Pupils: Pupils are equal, round, and reactive to light. Neck: Comments: mass Cardiovascular: Rate and Rhythm: Normal rate and regular rhythm. Pulses: Normal pulses. Heart sounds: Normal heart sounds. Pulmonary: Effort: Pulmonary effort is normal. Breath sounds: No wheezing or rhonchi. Comments: Clear/diminished throughout Abdominal: General: Abdomen is flat. There is no distension. (more content not included)... [facility] Instructions Not on filedocumente d in this encounter [facility] Summary Purpose Family History No Family History Records FoundNo Family History Records FoundNo Family History Records FoundNo Family History Records Found Advance Directives No Advanced Directives Records FoundNo Advanced Directives Records FoundNo Advanced Directives Records FoundNo Advanced Directives Records Found Additional Source Comments (unrecognized sect ion and content) No Status Records FoundNo Status Records FoundNo Status Records FoundNo Status Records Found INFORMATION SOURCE (unrecogn ized section and content) DATE CREATED AUTHOR 05/23/2024 [facility] DATE CREATED AUTHOR AUTHOR'S ORGANIZ ATION 06/27/2024 [facility] DATE CREATED AUTHOR AUTHOR'S ORGANIZ ATION 07/01/2024 [facility] DATE CREATED AUTHOR AUTHOR'S ORGANIZ ATION 07/02/2024 [facility] Care Teams (unrecognized sec tion and content) Hotel Assistant General Manager Relationship Specialty Start Date End Date No Pcp, [place] [address] PCP - General Family Medicine 01/25/24 FOR RECORDS PERTAINING TO PATIENTS WHO ARE [...] BE BASED ON THE PRIMARY CLINICAL RECORDS. [facility] [employer] provides no warranty or guarantee of the accuracy or completeness of information in this document.
[2024-07-04 09:54] VITALS: BP 100/69; PULSE 88; TEMP 36.4; O2SAT 95
[2024-07-04 10:13] LABS: Basophils Percent Auto 0.1 % (0.2-2.0); Eosinophils Percent Auto 0.3 % (0.9-7.0); Hemoglobin 11.8 g/dL (14.0-18.0); Immature Granulocytes Abs Auto 0.07 10^3/uL (0.00-0.03); Immature Granulocytes Pct Auto 0.5 % (0.0-0.5); Lymphocytes Absolute Auto 0.5 10^3/uL (1.2-3.8); Lymphocytes Percent Auto 3.6 % (20.5-60.0); Mean Corpuscular HGB Conc 32.8 g/dL (29.9-35.2); Mean Corpuscular Hemoglobin 30.8 pg (25.9-34.0); Mean Platelet Volume 10.7 fL (9.5-13.5); Monocytes Absolute Auto 0.8 10^3/uL (0.3-0.8); Monocytes Percent Auto 5.6 % (1.7-12.0); Neutrophils Absolute Auto 13.4 10^3/uL (1.4-6.5); Neutrophils Percent Auto 89.9 % (43.0-75.0); Platelet Count 401 10^3/uL (150-450); Red Blood Count 3.83 10^6/uL (4.70-6.10); Red Cell Distribution Width 17.3 % (11.0-15.0); White Blood Count 14.9 10^3/uL (4.0-11.0)
[2024-07-04 10:29] LABS: Alanine Aminotransferase 23 U/L (16-63); Albumin Globulin Ratio 0.4; Albumin Level 1.8 g/dL (3.4-5.0); Alkaline Phosphatase 130 U/L (46-116); Anion Gap 11.2; Aspartate Amino Transferase 34 U/L (15-37); BUN Creatinine Ratio 34.9; Bilirubin Total 0.4 mg/dL (0.2-1.0); Calcium 10.8 mg/dL (8.5-10.1); Carbon Dioxide 29.2 mmol/L (21.0-32.0); Chloride 102 mmol/L (98-107); Estimated GFR (African America >60 (>=60 mL/min/1.73m^2); Estimated GFR (Non-African Ame >60 (>=60 mL/min/1.73m^2); Globulin 4.8 g/dL; Glucose 101 mg/dL (74-106); Potassium 4.4 mmol/L (3.5-5.1); Sodium 138 mmol/L (136-145); Total Protein 6.6 g/dL (6.4-8.2)
[2024-07-04] MEDS: 0.9 % SODIUM CHLORIDE 250 ML 10 ML IV (11:49)
[2024-07-04] MEDS: ZOLEDRONIC ACID 4 MG in 0.9 % SODIUM CHLORIDE 100 ML 210 MG IV (11:49)
--- NOTE | 2024-07-04 12:24 | PC.NURSE ---
0955 Arrival per wheelchair. Assisted to scales, very weak and frail. states he hasn't been eating nearly anything at home with exception of a few bites or drinking a boost intermittently. 1015 Port a cath accessed rt chest, excellent blood return, labs drawn, sent to lab. with patient. [address] Montiel, Dr. Montiel discusses possibility of sending him to the ER for evaluation. Patient expresses desire to continue treatment for his cancer. 1100 IV zometa initiated over 30 mins. 1130 Tolerated IV zometa without any issues.
== END 2024-07-20 08:44 | disposition home or self-care (01) ==
LOC: HEMC 07:37
PROVIDERS: Family Provider Family Medicine; PCP Nurse Practitioner Family; Visit Provider Internal Medicine Hematology & Oncology
DX: C79.51 Secondary malignant neoplasm of bone (principal); Z72.0 Tobacco use; E83.52 Hypercalcemia; C34.81 Malignant neoplasm of overlapping sites of right bronchus and lung; R11.2 Nausea with vomiting, unspecified; C77.0 Secondary and unspecified malignant neoplasm of lymph nodes of head, face and neck; D64.9 Anemia, unspecified; R22.43 Localized swelling, mass and lump, lower limb, bilateral
CPT/HCPCS: 36591; 80053; 85025; 96365; G0463; J3489

== ENCOUNTER 2024-07-04 13:08 | Emergency (ER) | payer MEDICAID, SELFPAY ==
[2024-07-04] VITALS (30 sets, daily range): BP systolic 84–110; BP diastolic 57–77; PULSE 64–95; TEMP 36.6; O2SAT 35–100; BMI 14.5
--- NOTE | 2024-07-04 13:38 | ECG_ITS ---
[facility] Test Date: 2024-07-04 Pat Name: KRISTEN LAU Department: Room: - Gender: Male Group Account Director: : 1965 Requested By: MESFIN ROBERSON Order Number: [id number] Reading MD: ROGER MANUEL Measurements Intervals [place] Rate: 84 P: 79 AK: 124 QRS: 89 QRSD: 94 T: 74 QT: 360 QTc: 401 Interpretive Statements 1100 Sinus rhythm 2440 Incomplete right bundle branch block 4068 Nonspecific Twave abnormality 6220 Possible left atrial enlargement 9130 borderline ECG Compared to ECG 07/04/2024 13:41:17 Incomplete right bundle-branch block now present ST (T wave) deviation no longer present Electronically Signed On 07-04-2024 15:45:23 EST by ROGER MANUEL
--- NOTE | 2024-07-04 13:38 | XR_ITS ---
[address] [address] Patient Name: KRISTEN LAU MRN: [id number] date: 1965 Sex: M Assigned Patient Location: ER Current Patient Location: ER Accession/Order Number: [id number] Exam Date: 07/04/2024 14:00 Report Date: 07/04/2024 14:18 At the request of: RAYMUNDO TOLENTINO Procedure: XR chest 1V EXAMINATION: XR chest 1V HISTORY: Weakness COMPARISON: 06/01/2024, 05/04/2024 TECHNIQUE: AP portable FINDINGS: LUNGS: Hyperinflation. The right lung is clear. Mild left basilar infiltrate partially obscuring the hemidiaphragm VASCULATURE: No increased pulmonary vasculature. PLEURA: No pneumothorax. Tiny left pleural effusion CARDIAC: No cardiomegaly or cardiac silhouette abnormality. MEDIASTINUM: No visible mass or adenopathy. BONES: Marked lytic destructive changes of the right humeral head and proximal to mid diaphysis OTHER: Negative. XR/XR chest 1V IMPRESSION: Mild left basilar infiltrate with small pleural effusion Marked lytic destruction of the right humerus Electronically authenticated by: MARCELA FAM Date: 07/04/2024 14:18
--- NOTE | 2024-07-04 13:39 | CT_ITS ---
The [address] [address] Patient Name: KRISTEN LAU MRN: [facility]:[id number] date: 1965 Sex: M Assigned Patient Location: ER Current Patient Location: ER Accession/Order Number: [id number] Exam Date: 07/04/2024 14:00 Report Date: 07/04/2024 14:26 At the request of: RAYMUNDO TOLENTINO Procedure: CT head/brain wo con EXAM: CT head/brain wo con HISTORY: Weakness COMPARISON: None. TECHNIQUE: Axial soft tissue and bone windows through the calvarium with coronal and sagittal reformats. CT dose reduction technique was used including Automated Exposure Control. Findings: The paranasal sinuses and mastoid air cells are well aerated. No air-fluid levels. No extra-axial fluid collection. No intra-axial or extra-axial bleed. No mass effect or midline shift. The espino-white matter differentiation is preserved. There are white matter low attenuation lesions which are nonspecific but commonly attributed to chronic small vessel ischemic disease. The brain parenchymal volume is age appropriate. The ventricles are nondilated. The basal cisterns are patent. The craniovertebral junction is unremarkable. CT/CT head/brain wo con IMPRESSION: 1. No acute intracranial abnormality. 2. Senescent changes. Electronically authenticated by: OSORIO DOTSON Date: 07/04/2024 14:26
--- NOTE | 2024-07-04 13:40 | ED_ITS ---
HPI HPI - General Adult General Chief complaint: Weakness Stated complaint: WEAKNESS Time Seen by Provider: 07/04/24 13:25 Source: family Mode of arrival: Wheelchair History of Present Illness HPI narrative: Patient is a 58-year-old male who presents to the emergency department for increasing weakness, unsteady gait by his hematology/business continuity specialist. Patient was in the infusion center today receiving IV immunotherapy for metastatic cancer. He was seen in this emergency department 2 months ago for chronic right shoulder pain and was found to have a destructive bone lesion in the right shoulder. He was referred to oncology. He was seen here 1 month ago for elevated calcium and was transferred to [facility]. Significant other at bedside states that the patient has not been doing well over the last week, he does not eat, he is taking fluids with no vomiting. He has not had any fevers. Patient is currently anticoagulated for extremity DVTs. He is unable to move his right arm. No new falls or injuries. Related Data Previous Rx's ?Medication ?Instructions ?Recorded hydrocodone 7.5 mg-acetaminophen 1 tab PO Q4H PRN pain #10 tabs 04/19/24 325 mg tablet Allergies Allergy/AdvReac Type Severity Reaction Status Date / Time No Known Drug Allergies Allergy Verified 06/01/24 13:06 Opioid HPI Opioid Management Most Recent Opioid Data: No Data to Display Review of Systems ROS Constitutional Denies: fever or chills Ears, nose, mouth, and throat Denies: throat pain or nasal congestion Cardiovascular Denies: chest pain Respiratory Denies: shortness of breath Gastrointestinal Denies: nausea or vomiting Musculoskeletal Reports: extremity pain; Denies: back pain Hematologic/Lymphatic Denies: easy bruising or easy bleeding PFSH PFSH Social History Little interest or pleasure in doing things: not at all Feeling down, depressed, or hopeless: not at all Exam Narrative Exam Narrative: Gen.: Awake, slow to answer questions, cachectic Head: Normocephalic, atraumatic ENT: Moist mucous membranes Respiratory: No respiratory distress, lungs clear bilaterally Cardio: Regular rate and rhythm Gastrointestinal: Abdomen is soft, nondistended and nontender to palpation Extremities: Unable to move the right upper extremity with significant swelling of the right hand Psych: Normal mood and affect Neuro: Slow to answer questions, no slurred speech; unable to stand on his own, generally weak Skin: Warm, dry, intact Constitutional Vital Signs, click to edit/add: Last Vital Signs Temp 97.8 F 07/04/24 13:14 Pulse 81 07/04/24 13:14 Resp 18 07/04/24 13:14 BP 98/77 07/04/24 13:14 Pulse Ox 100 07/04/24 13:14 Course Vital Signs Vital signs: Vital Signs Temperature 97.8 F 07/04/24 13:14 Pulse Rate 81 07/04/24 13:14 Respiratory Rate 18 07/04/24 13:14 Blood Pressure 98/77 07/04/24 13:14 Pulse Oximetry 100 07/04/24 13:14 Temperature 97.8 F 07/04/24 13:14 Pulse Rate 81 07/04/24 13:14 Respiratory Rate 18 07/04/24 13:14 Blood Pressure 98/77 07/04/24 13:14 Pulse Oximetry 100 07/04/24 13:14 Medical Decision Making MDM Narrative Medical decision making narrative: 1529: CT of the brain, chest x-ray with left-sided pleural effusion and questionable infiltrate in the left lower lobe. CT with no acute intracranial abnormalities. Lab studies are stable, calcium is 10.5 today. Troponin is elevated, however the patient has no EKG changes, no active chest pain. I discussed the case with Dr. Montiel, who recommends transfer to [facility] for treatment of the patient's hypercalcemia, possible MRI of the brain to rule out metastasis, possible placement of a temporary feeding tube and potentially palliative radiology. These were all treatment options that were discussed by oncology with the patient, he discussed wanting to stay aggressive with his treatment plan so we will pursue treatment at tertiary care. Patient was accepted at [facility] by the hospitalist service. He is stable at this time. Critical care time 35 minutes SHARED APC VISIT, PHYSICIAN ATTESTATION: [id number] I performed a substantive part of the MDM during the patient?s E/M visit. I personally evaluated and examined the patient. I personally made or approved the documented management plan and acknowledge its risk of complications. Medical Records Medical records reviewed: Yes I reviewed the patient's medical records Lab Data Lab results reviewed: Yes I reviewed the patient's lab results Labs: Lab Results 07/04/24 Range/Units 13:50 WBC 14.5 H (4.0-11.0) 10^3/uL RBC 3.79 L (4.70-6.10) 10^6/uL Hgb 11.5 L (14.0-18.0) g/dL Hct 35.4 L (42.0-54.0) % MCV 93.4 (80.0-94.0) fL MCH 30.3 (25.9-34.0) pg MCHC 32.5 (29.9-35.2) g/dL RDW 17.5 H (11.0-15.0) % Plt Count 368 (150-450) 10^3/uL MPV 10.6 (9.5-13.5) fL Neut % (Auto) 90.0 H (43.0-75.0) % Lymph % (Auto) 3.4 L (20.5-60.0) % Floyd % (Auto) 5.7 (1.7-12.0) % Eos % (Auto) 0.3 L (0.9-7.0) % Baso % (Auto) 0.1 L (0.2-2.0) % Neut # (Auto) 13.0 H (1.4-6.5) 10^3/uL Lymph # (Auto) 0.5 L (1.2-3.8) 10^3/uL Floyd # (Auto) 0.8 (0.3-0.8) 10^3/uL Eos # (Auto) 0.0 (0.0-0.7) 10^3/uL Baso # (Auto) 0.0 (0.0-0.1) 10^3/uL Abs Immat Gran (auto) 0.07 H (0.00-0.03) 10^3/uL Imm/Tot Granulo (auto) 0.5 (0.0-0.5) % PT 11.8 H (9.0-11.6) sec INR 1.13 Sodium 138 (136-145) mmol/L Potassium 3.8 (3.5-5.1) mmol/L Chloride 102 (98-107) mmol/L Carbon Dioxide 29.4 (21.0-32.0) mmol/L Anion Gap 10.4 BUN 32.0 H (7.0-18.0) mg/dL Creatinine 0.80 (0.70-1.30) mg/dL Est GFR ( Amer) >60 (>=60 mL/min/1.73m^2) Est GFR (Non-Af Amer) >60 (>=60 mL/min/1.73m^2) BUN/Creatinine Ratio 40.0 Glucose 101 (74-106) mg/dL Calcium 10.5 H (8.5-10.1) mg/dL Magnesium 2.1 (1.8-2.4) mg/dL Total Bilirubin 0.4 (0.2-1.0) mg/dL AST 34 (15-37) U/L ALT 24 (16-63) U/L Alkaline Phosphatase 135 H (46-116) U/L Troponin I High Sens 141.6 H* (4.0-76.1) pg/mL Total Protein 6.4 (6.4-8.2) g/dL Albumin 1.8 L (3.4-5.0) g/dL Globulin 4.6 g/dL Albumin/Globulin Ratio 0.4 TSH 2.156 (0.358-3.740) uIU/mL Imaging Data CT scan - head: Attestation: I have reviewed the pertinent imaging results. Radiologist's impression: ITS Impressions Chest X-Ray 07/04/24 13:38 IMPRESSION: Mild left basilar infiltrate with small pleural effusion Marked lytic destruction of the right humerus Electronically authenticated by: MARCELA FAM Date: 07/04/2024 14:[address] 07/04/24 13:39 IMPRESSION: 1. No acute intracranial abnormality. 2. Senescent changes. Electronically authenticated by: OSORIO DOTSON Date: 07/04/2024 14:26 ECG Data Attestation: I personally reviewed and interpreted this ECG as follows: (Normal sinus rhythm at a rate of 84, incomplete right bundle branch block with no acute ST elevation or ectopy. EKG reviewed by attending physician) Discharge Plan Discharge Chief Complaint: Weakness Clinical Impression: Hypercalcemia, Generalized weakness, Metastatic cancer, Unsteady gait Patient Disposition: [facility] Time of Disposition Decision: 16:34 Discharge Location: [facility] [place] Condition: Good Mode of Transportation: EMS Prescriptions / Home Meds: No Action hydrocodone-acetaminophen 7.5-325 mg tablet 1 tab PO Q4H PRN (Reason: pain) Qty: 10 0RF Print Language: Congolese Referrals: MESFIN ROBERSON [Primary Care Provider] - 1 week
[2024-07-04 13:58] LABS: Basophils Percent Auto 0.1 % (0.2-2.0); Eosinophils Percent Auto 0.3 % (0.9-7.0); Hematocrit 35.4 % (42.0-54.0); Hemoglobin 11.5 g/dL (14.0-18.0); Immature Granulocytes Abs Auto 0.07 10^3/uL (0.00-0.03); Immature Granulocytes Pct Auto 0.5 % (0.0-0.5); Lymphocytes Absolute Auto 0.5 10^3/uL (1.2-3.8); Lymphocytes Percent Auto 3.4 % (20.5-60.0); Mean Corpuscular HGB Conc 32.5 g/dL (29.9-35.2); Mean Corpuscular Hemoglobin 30.3 pg (25.9-34.0); Mean Corpuscular Volume 93.4 fL (80.0-94.0); Mean Platelet Volume 10.6 fL (9.5-13.5); Monocytes Absolute Auto 0.8 10^3/uL (0.3-0.8); Monocytes Percent Auto 5.7 % (1.7-12.0); Platelet Count 368 10^3/uL (150-450); Red Blood Count 3.79 10^6/uL (4.70-6.10); Red Cell Distribution Width 17.5 % (11.0-15.0); White Blood Count 14.5 10^3/uL (4.0-11.0)
[2024-07-04] MEDS: 0.9 % SODIUM CHLORIDE 1,000 ML 999 ML IV (14:11)
[2024-07-04 14:14] LABS: INR 1.13; Prothrombin Time 11.8 sec (9.0-11.6)
[2024-07-04 14:18] LABS: Alanine Aminotransferase 24 U/L (16-63); Albumin Globulin Ratio 0.4; Albumin Level 1.8 g/dL (3.4-5.0); Alkaline Phosphatase 135 U/L (46-116); Anion Gap 10.4; Aspartate Amino Transferase 34 U/L (15-37); Bilirubin Total 0.4 mg/dL (0.2-1.0); Calcium 10.5 mg/dL (8.5-10.1); Carbon Dioxide 29.4 mmol/L (21.0-32.0); Chloride 102 mmol/L (98-107); Estimated GFR (African America >60 (>=60 mL/min/1.73m^2); Estimated GFR (Non-African Ame >60 (>=60 mL/min/1.73m^2); Globulin 4.6 g/dL; Glucose 101 mg/dL (74-106); Potassium 3.8 mmol/L (3.5-5.1); Sodium 138 mmol/L (136-145); Total Protein 6.4 g/dL (6.4-8.2)
--- NOTE | 2024-07-04 14:19 | PC.NURSE ---
pt with h/o metastatic lung CA sent to ER from [facility] because Dr Stevenson wants him to go to [facility]. pt is severely malnourished. per family member at bedside, pt is not vomiting or nauseous, but just has no appetite. somewhat confused at times.. L arm and bilat lower legs are pitting edema. Per family member, pt has blood clots in these areas. Pt is a full code.
[2024-07-04 14:29] LABS: Magnesium 2.1 mg/dL (1.8-2.4); Thyroid Stimulating Hormone 2.156 uIU/mL (0.358-3.740)
[2024-07-04 14:33] LABS: Troponin I High Sensitivity 141.6 pg/mL (4.0-76.1)
[2024-07-04 17:05] LABS: Bilirubin Urine NEGATIVE (NEGATIVE); Blood Urine NEGATIVE (NEGATIVE); Clarity Urine CLEAR (CLEAR); Color Urine LT. YELLOW (YELLOW); Glucose Urine UA NEGATIVE (NEGATIVE); Ketones Urine NEGATIVE (NEGATIVE); Leukocyte Esterase Urine NEGATIVE (NEGATIVE); Nitrite Urine NEGATIVE (NEGATIVE); Protein Urine NEGATIVE (NEG/TRACE); Urobilinogen Urine 0.2 EU/dL (0.2-1.0)
[2024-07-04 17:06] LABS: Urine Microscopic Indicated NO
--- NOTE | 2024-07-04 18:51 | PC.NURSE ---
SPOKE WITH ALEA MINOR, AT [facility] TO GIVE PHONE REPORT ON PT. STILL AWAITING ETA.
== END 2024-07-04 20:17 | disposition short-term general hospital (02) ==
PROVIDERS: Physician Assistant; Emergency Provider Student in an Organized Health Care Education/Training Program; Family Provider Family Medicine; PCP Nurse Practitioner Family
DX: E83.52 Hypercalcemia (principal); R53.1 Weakness; R26.81 Unsteadiness on feet; C79.9 Secondary malignant neoplasm of unspecified site; Z86.718 Personal history of other venous thrombosis and embolism; Z79.01 Long term (current) use of anticoagulants; C79.51 Secondary malignant neoplasm of bone; Z72.0 Tobacco use; C34.81 Malignant neoplasm of overlapping sites of right bronchus and lung; R11.2 Nausea with vomiting, unspecified; C77.0 Secondary and unspecified malignant neoplasm of lymph nodes of head, face and neck; D64.9 Anemia, unspecified; R22.41 Localized swelling, mass and lump, right lower limb; R22.42 Localized swelling, mass and lump, left lower limb
CPT/HCPCS: 36415; 36591; 70450; 71045; 80053; 81003; 83735; 84443; 84484; 85025; 85610; 93005; 96365; 99285; G0463; J3489